=== PATIENT | female | born 1960 | race Caucasian/White ===

== ENCOUNTER → 2017-03-03 | Outpatient (REF) | payer BC ==
[2017-03-03 19:27] LABS: ANION GAP 9 MEQ/L (8-16); BLOOD UREA NITROGEN 23 MG/DL (7-18); CALCIUM LEVEL 8.5 MG/DL (8.5-10.1); CARBON DIOXIDE LEVEL 26 MEQ/L (21-32); CHLORIDE LEVEL 108 MEQ/L (98-107); CHOLESTEROL LEVEL 147 MG/DL (<200); GLOMERULAR FILTRATION RATE > 60.0 (>51); GLUCOSE, FASTING 95 MG/DL (70-105); POTASSIUM SERUM 4.7 MEQ/L (3.5-5.1); SODIUM LEVEL 143 MEQ/L (136-145); TRIGLYCERIDES LEVEL 106 MG/DL (<150)
== END ==
LOC: M LAB REF 10:06
PROVIDERS: ATTEND Internal Medicine Cardiovascular Disease
DX: E78.4 Other hyperlipidemia (principal)

== ENCOUNTER → 2017-04-11 | Outpatient (CLI) | payer BC ==
[2017-04-12 10:16] LABS: BLOOD UREA NITROGEN 16 MG/DL (7-18); CREATININE FOR GFR 0.88 MG/DL (0.55-1.02); GLOMERULAR FILTRATION RATE > 60.0 (>51); GLUCOSE, FASTING 75 MG/DL (70-105); POTASSIUM SERUM 4.8 MEQ/L (3.5-5.1); SODIUM LEVEL 140 MEQ/L (136-145)
[2017-04-12 10:17] LABS: ANION GAP 4 MEQ/L (8-16); CALCIUM LEVEL 8.8 MG/DL (8.5-10.1); CARBON DIOXIDE LEVEL 29 MEQ/L (21-32); CHLORIDE LEVEL 107 MEQ/L (98-107)
== END ==
LOC: M WUC 15:55
PROVIDERS: ATTEND Internal Medicine Cardiovascular Disease
DX: I11.0 Hypertensive heart disease with heart failure (principal); I42.9 Cardiomyopathy, unspecified; I50.9 Heart failure, unspecified

== ENCOUNTER → 2017-04-24 | Outpatient (CLI) | payer BC ==
--- NOTE | 2017-04-24 17:01 | REPMRS ---
Patient History The patient states she had a clinical breast exam in March 2017.Patient is postmenopausal. Family history of unknown cancer in brother and unknown cancer in paternal uncle. Took hormonal contraceptives for 1 year 6 months. Digital Mammo Screening Bilat: April 24, 2017 - Exam #: [id number] Bilateral CC and MLO view(s) were taken. Technologist: Mary Raya, Technologist Prior study comparison: February 06, 2013, bilateral bilat screen digital mammo, performed at [facility] ([facility]). January 13, 2012, bilateral bilat screen digital mammo, performed at [facility] ([facility]). FINDINGS: There are scattered fibroglandular densities. There has been no change in the appearance of the mammogram from the prior studies. There is a mild amount of residual fibroglandular tissue which is fairly symmetric. There is no interval development of dominant mass, architectural distortion, or clustered microcalcification suggestive of malignancy. ASSESSMENT: BI-RADS/ACR category 1 mammogram. Negative. Recommendation Routine screening mammogram in 1 year (for women over age 40). This mammogram was interpreted with the aid of an FDA-approved computer-aided dectection system. Electronically Signed By: Valerio Saunders MD 04/24/17 [id number]
== END ==
LOC: M RAD 16:29
PROVIDERS: ATTEND Family Medicine
DX: Z12.31 Encounter for screening mammogram for malignant neoplasm of breast (principal); Z78.0 Asymptomatic menopausal state; Z92.0 Personal history of contraception

== ENCOUNTER → 2017-06-22 | Outpatient (CLI) | payer BC ==
--- NOTE | 2017-06-23 08:57 | REP ---
PA and lateral chest: A comparison is 02/28/2017. There is chronic cardiomegaly. The lung dodge are clear. The leandro, mediastinum, and bony thorax are unremarkable. Impression: Chronic cardiomegaly. No acute cardiopulmonary findings. Signed by Valerio Rangel MD 06/23/2017 08:49 A
== END ==
LOC: M LRY 16:50
PROVIDERS: ATTEND Family Medicine
DX: R05 Cough (principal); I51.7 Cardiomegaly

== ENCOUNTER → 2017-12-19 | Outpatient (REF) | payer BC ==
[2017-12-19 15:07] LABS: VITAMIN B12 LEVEL 413 PG/ML
[2017-12-19 15:08] LABS: FOLATE 15.1 NG/ML
== END ==
LOC: M LAB REF 12:36
DX: G61.82 Multifocal motor neuropathy (principal); Z98.84 Bariatric surgery status
CPT/HCPCS: 82746

== ENCOUNTER → 2018-04-28 | Outpatient (CLI) | payer BC ==
[2018-04-28 19:19] LABS: BASO # 0.1 10^3/uL (0.0-0.2); BASO % 1.8 % (0.0-1.0); EOS # 0.5 10^3/uL (0.0-0.50); HEMATOCRIT 44.3 % (36.0-47.0); HEMOGLOBIN 13.7 g/dl (12.0-15.5); IMMATURE GRANULOCYTE % 0.4 % (0-3.0); LYMPH # 1.6 10^3/uL (1.5-4.5); LYMPH % 23.1 % (24.0-44.0); MEAN CORPUSCULAR HEMOGLOBIN 24.4 pg (27.0-33.0); MEAN CORPUSCULAR HGB CONC 30.9 g/dl (32.0-36.5); MONO # 0.6 10^3/uL (0.0-0.8); MONO % 8.3 % (0.0-5.0); NEUTROPHILS # 4.1 10^3/uL (1.8-7.7); NEUTROPHILS % 59.4 % (36.0-66.0); PLATELET COUNT, AUTOMATED 526 10^3/uL (150-450); RED BLOOD COUNT 5.61 10^6/uL (4.00-5.40); RED CELL DISTRIBUTION WIDTH 16.3 % (11.5-14.5); WHITE BLOOD COUNT 6.8 10^3/uL (4.0-10.0)
[2018-04-28 19:24] LABS: ANION GAP 8 MEQ/L (8-16); BLOOD UREA NITROGEN 20 MG/DL (7-18); CALCIUM LEVEL 8.5 MG/DL (8.5-10.1); CARBON DIOXIDE LEVEL 28 MEQ/L (21-32); CHLORIDE LEVEL 108 MEQ/L (98-107); CREATININE FOR GFR 0.86 MG/DL (0.55-1.30); GLOMERULAR FILTRATION RATE > 60.0 (>51); GLUCOSE, FASTING 77 MG/DL (70-100); POTASSIUM SERUM 4.8 MEQ/L (3.5-5.1); SODIUM LEVEL 144 MEQ/L (136-145)
== END ==
LOC: M WUC 08:56
DX: I42.9 Cardiomyopathy, unspecified (principal)

== ENCOUNTER 2018-05-26 05:31 | Emergency (ER) | payer BC ==
[2018-05-26 07:30] LABS: KETONE, URINE AUTO RFX NEGATIVE (NEGATIVE); MUCUS, URINE RFX SMALL (NEGATIVE); NITRITE, URINE AUTO RFX NEGATIVE (NEGATIVE); RBC, URINE AUTO RFX 94 /HPF (0-3); SQUAM EPITHELIAL CELL UR AURFX 0 /HPF (0-6)
[2018-05-26 07:32] LABS: LEUKOCYTE ESTERASE UR AUTO RFX 3+ (NEGATIVE); WBC, URINE AUTO RFX TNTC /HPF (0-3)
== END 2018-05-26 08:40 | disposition home or self-care (01) ==
LOC: M ED 05:31
DX: N30.00 Acute cystitis without hematuria (principal); L03.313 Cellulitis of chest wall; Z95.0 Presence of cardiac pacemaker; I10 Essential (primary) hypertension; K21.9 Gastro-esophageal reflux disease without esophagitis; F41.9 Anxiety disorder, unspecified; F32.9 Major depressive disorder, single episode, unspecified; M54.9 Dorsalgia, unspecified; Z98.84 Bariatric surgery status; Z88.8 Allergy status to other drugs, medicaments and biological substances; Z91.048 Other nonmedicinal substance allergy status; Z79.899 Other long term (current) drug therapy
CPT/HCPCS: 81001

== ENCOUNTER 2018-06-06 09:20 | Emergency (ER) | payer BC ==
[2018-06-06 09:58] LABS: AMORPHOUS SEDIMENT RFX SMALL (NEGATIVE); KETONE, URINE AUTO RFX NEGATIVE (NEGATIVE); MUCUS, URINE RFX SMALL (NEGATIVE); NITRITE, URINE AUTO RFX NEGATIVE (NEGATIVE); RBC, URINE AUTO RFX 113 /HPF (0-3); RENAL EPITHELIAL CELLS RFX 1 /HPF; SPECIFIC GRAVITY UR AUTO RFX 1.014 (1.002-1.035); SQUAM EPITHELIAL CELL UR AURFX 4 /HPF (0-6); TRANSITIONAL EPITHELIAL AU RFX 2 /HPF
[2018-06-06 10:01] LABS: LEUKOCYTE ESTERASE UR AUTO RFX 3+ (NEGATIVE); WBC, URINE AUTO RFX TNTC /HPF (0-3)
[2018-06-06] MEDS ORDERED: LIDOCAINE 1% MDV 20ML VIAL As Ordered (10:29)
[2018-06-06] MEDS: LIDOCAINE 1% SDV INJ 30 ML VIAL IM (10:38)
[2018-06-06] MEDS: cefTRIAXone SOD 1 GM VIAL (J0696) IM (10:38)
[2018-06-06 10:55] LABS: ANION GAP 7 MEQ/L (8-16); BLOOD UREA NITROGEN 17 MG/DL (7-18); CALCIUM LEVEL 8.7 MG/DL (8.5-10.1); CARBON DIOXIDE LEVEL 28 MEQ/L (21-32); CHLORIDE LEVEL 106 MEQ/L (98-107); CREATININE FOR GFR 0.82 MG/DL (0.55-1.30); GLOMERULAR FILTRATION RATE > 60.0 (>51); GLUCOSE, FASTING 88 MG/DL (70-100); SODIUM LEVEL 141 MEQ/L (136-145)
[2018-06-06 10:58] LABS: POTASSIUM SERUM 5.3 MEQ/L (3.5-5.1)
== END 2018-06-06 11:13 | disposition home or self-care (01) ==
LOC: M ED 09:20
DX: N39.0 Urinary tract infection, site not specified (principal); I10 Essential (primary) hypertension; F41.9 Anxiety disorder, unspecified; F33.9 Major depressive disorder, recurrent, unspecified; Z98.84 Bariatric surgery status; Z79.899 Other long term (current) drug therapy; Z88.8 Allergy status to other drugs, medicaments and biological substances; Z91.048 Other nonmedicinal substance allergy status
CPT/HCPCS: J0696

== ENCOUNTER 2018-09-13 12:54 | Day surgery (SDC) | payer BC ==
[~2018-09-13 12:54] MED LIST: NS 1,000 ML IV
[2018-09-13] MEDS ORDERED: METOPROLOL 5 MG/5 ML VIAL As Ordered (15:02)
[2018-09-13] MEDS ORDERED: PROPOFOL 200 MG/20 ML VIAL As Ordered ×2 (15:07→15:11)
[2018-09-13] MEDS ORDERED: fentaNYL 100 MCG/2 ML INJECTION (J3010) As Ordered (15:07)
[2018-09-13] MEDS ORDERED: LIDOCAINE 2% INJ 100 MG/5 ML SDV (FOR ANES.) As Ordered ×2 (15:07)
== END 2018-09-13 15:55 | disposition home or self-care (01) ==
LOC: M OPP 15:55
DX: K21.9 Gastro-esophageal reflux disease without esophagitis (principal); Z98.0 Intestinal bypass and anastomosis status; K30 Functional dyspepsia; I42.9 Cardiomyopathy, unspecified; I50.42 Chronic combined systolic (congestive) and diastolic (congestive) heart failure; I44.7 Left bundle-branch block, unspecified; D50.9 Iron deficiency anemia, unspecified; F41.9 Anxiety disorder, unspecified; F32.9 Major depressive disorder, single episode, unspecified; E78.5 Hyperlipidemia, unspecified; G47.00 Insomnia, unspecified; Z79.82 Long term (current) use of aspirin; Z79.890 Hormone replacement therapy; Z98.84 Bariatric surgery status; Z95.810 Presence of automatic (implantable) cardiac defibrillator
CPT/HCPCS: 43239

== ENCOUNTER → 2019-02-10 | Outpatient (REF) | payer BC, MEDICAID ==
[~2019-02-10] MED LIST changes: +AMIT150T PO; +ASPI81TA26 PO; +ATOR1TAB21 PO; +BACT800T5 PO; +BUPR150T3 PO; +CARV12.5 PO; +CEFD300CAP PO; +CLON0.5T8 PO; +FURO40TA2 PO; +GABA-1171 PO; +LOSA50TA88 PO; +MULT1TAB10 PO; -NS 1,000 ML IV; +PANT40TA3 PO; +SERT-138 PO; +TRAZ-160; +VITA100067 PO; +VITA500T PO; +VITA500T17 PO; +VITATAB11 PO; +unknown antibiotic PO
[2019-02-10 17:55] LABS: INFLUENZA A AMPLIFICATION NEGATIVE (NEGATIVE); INFLUENZA B AMPLIFICATION NEGATIVE (NEGATIVE)
== END ==
LOC: M LAB REF 15:52
PROVIDERS: ATTEND Physician Assistant Medical
DX: B34.9 Viral infection, unspecified (principal)

== ENCOUNTER → 2019-04-09 | Outpatient (REF) | payer MEDICAID | LOC: M LAB REF 14:28 | PROVIDERS: ATTEND Orthopaedic Surgery | DX: S61.04 Puncture wound with foreign body of thumb without damage to nail (principal) ==

== ENCOUNTER 2019-07-13 18:27 | Emergency (ER) | payer MEDICAID ==
[~2019-07-13] VITALS: Ht 162.6 cm; Wt 90.0 kg
[~2019-07-13 18:27] MED LIST changes: -TRAZ-160; +TRAZ-252
[2019-07-13 20:17] VITALS: BP 123/65
[2019-07-13] MEDS ORDERED: KEFL500C17 PO (20:33)
[2019-07-13] MEDS ORDERED: CEPHALEXIN 500 MG CAP PO ONE (20:45)
== END 2019-07-13 20:42 | disposition home or self-care (01) ==
LOC: M ED 18:27
DX: L08.9 Local infection of the skin and subcutaneous tissue, unspecified (principal); I10 Essential (primary) hypertension; K21.9 Gastro-esophageal reflux disease without esophagitis; F33.9 Major depressive disorder, recurrent, unspecified; F41.9 Anxiety disorder, unspecified; Z79.899 Other long term (current) drug therapy; Z79.82 Long term (current) use of aspirin; Z88.8 Allergy status to other drugs, medicaments and biological substances; Z91.048 Other nonmedicinal substance allergy status

== ENCOUNTER 2019-10-06 09:30 | Emergency (ER) | payer OTHER ==
[~2019-10-06] VITALS: Ht 162.6 cm; Wt 81.8 kg
[~2019-10-06 09:30] MED LIST changes: +KEFL500C17 PO
[2019-10-06] MEDS ORDERED: ENTR1TAB7 PO (10:20)
[2019-10-06] MEDS ORDERED: DEXI60CA2 PO (10:20)
[2019-10-06] MEDS ORDERED: IBUPROFEN 600 MG TAB PO ONE (10:45)
--- NOTE | 2019-10-06 11:06 | REP ---
REASON: Abnormal breath sounds on auscultation. COMPARISON: 06/22/2017 There is global cardiomegaly status quo. There is a dual-chamber bipolar pacemaker device with AICD representing a change from the prior exam. The lung dodge are clear. The osseous structures are stable and intact. IMPRESSION: No acute cardiopulmonary disease. Findings as described above. Electronically Signed by Marvin Linares DO 10/06/2019 11:43 A
[2019-10-06 11:19] LABS: BASO # 0.1 10^3/uL (0.0-0.2); BASO % 1.1 % (0.0-1.0); EOS # 0.5 10^3/uL (0.0-0.5); EOS % 5.3 % (0.0-3.0); HEMATOCRIT 42.5 % (36.0-47.0); HEMOGLOBIN 12.3 g/dl (12.0-15.5); LYMPH # 1.7 10^3/uL (1.5-5.0); LYMPH % 20.2 % (24.0-44.0); MEAN CORPUSCULAR HEMOGLOBIN 22.4 pg (27.0-33.0); MEAN CORPUSCULAR HGB CONC 28.9 g/dl (32.0-36.5); MEAN CORPUSCULAR VOLUME 77.3 fl (80.0-96.0); MONO # 0.8 10^3/uL (0.0-0.8); NEUTROPHILS # 5.5 10^3/uL (1.5-8.5); NEUTROPHILS % 64.2 % (36.0-66.0); PLATELET COUNT, AUTOMATED 469 10^3/uL (150-450); WHITE BLOOD COUNT 8.5 10^3/uL (4.0-10.0)
[2019-10-06 11:44] LABS: BLOOD UREA NITROGEN 17 MG/DL (7-18); CALCIUM LEVEL 8.2 MG/DL (8.5-10.1); CARBON DIOXIDE LEVEL 29 MEQ/L (21-32); CHLORIDE LEVEL 109 MEQ/L (98-107); CK-MB VALUE MASS 1.1 NG/ML (<3.6); CPK CREATINE PHOSPHOKINASE 49 U/L (26-192); CREATININE FOR GFR 0.93 MG/DL (0.55-1.30); GLOMERULAR FILTRATION RATE > 60.0 (>51); GLUCOSE, FASTING 78 MG/DL (70-100); MB/CK RELATIVE INDEX 2.24 (< OR =4); POTASSIUM SERUM 4.5 MEQ/L (3.5-5.1); SODIUM LEVEL 142 MEQ/L (136-145); TROPONIN I < 0.02 NG/ML (< 0.10)
[2019-10-06 12:28] VITALS: BP 120/56
--- NOTE | 2019-10-06 19:17 | ECGEPIP ---
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
== END 2019-10-06 12:30 | disposition home or self-care (01) ==
LOC: M ED 09:30
DX: J06.9 Acute upper respiratory infection, unspecified (principal); I10 Essential (primary) hypertension; K21.9 Gastro-esophageal reflux disease without esophagitis; I44.7 Left bundle-branch block, unspecified; Z95.0 Presence of cardiac pacemaker; Z98.84 Bariatric surgery status; Z79.899 Other long term (current) drug therapy; Z79.82 Long term (current) use of aspirin; Z88.8 Allergy status to other drugs, medicaments and biological substances; Z91.048 Other nonmedicinal substance allergy status

== ENCOUNTER 2020-09-14 11:55 | Emergency (ER) | payer OTHER ==
[~2020-09-14] VITALS: Ht 160 cm; Wt 88.5 kg
[~2020-09-14 11:55] MED LIST changes: +CLON0.5T2 PO; -CLON0.5T8 PO; +DEXI60CA2 PO; +ENTR1TAB7 PO; +PANT40TA29 PO; -PANT40TA3 PO; +VITA-243 PO; -VITA500T PO
[2020-09-14] MEDS ORDERED: NS 1,000 ML IV ONE (12:45)
[2020-09-14] MEDS ORDERED: NORCO, ANEXSIA 5/325MG TABLET (HYDROcodone/ACETAMINOPHEN) PO ONE (12:45)
--- NOTE | 2020-09-14 13:04 | REP ---
INDICATION: lbp radiating to left leg/left leg weakness. COMPARISON: Comparison is made with imaging from CT study of the abdomen and pelvis dated June 21, 2015.. TECHNIQUE: Helical scanning is acquired and 4 mm axial images are generated. Coronal and sagittal MPR images are generated. The study is viewed at bone and soft tissue window settings. FINDINGS: There is an osteoporotic wedge compression deformity at the T12 vertebral body with approximately 40% loss of anterior vertebral body height. This is new when compared with the 2014 prior sagittal MPR images from CT study. There is no observable retropulsion. This does not appear to be in acute deformity. In addition, there is a more recent appearing partial couple collapse of the superior endplate of L3 with reactive healing sclerosis along the superior endplate. No loss of anterior or posterior vertebral body height is seen. No retropulsion is visible. Lumbar vertebral body heights are otherwise preserved. Alignment is normal. There is no evidence of spondylolysis or spondylolisthesis. Degenerative disc disease is present diffusely most pronounced at the L1-L2 and L2-L3. Axial and sagittal images at L1-L2 show no evidence of disc protrusion, central canal stenosis, or bony foraminal encroachment. At L2-L3, there is mild diffuse disc bulging. Canal size is borderline. There is mild diffuse disc bulging of the foraminal segments as well. No bony neural foraminal narrowing is seen. At L3-L4, there is disc space narrowing and diffuse disc bulging. Mild central canal stenosis is present due to disc bulging and developmentally short pedicles. There is a minimal ligamentum flavum and facet hypertrophy. At L4-5, there is mild central canal stenosis due to diffuse disc bulging in combination with developmentally short pedicles and mild ligamentum flavum hypertrophy. No bony neural foraminal encroachment. At L5-S1, there is a very small cyst left central focal disc protrusion. No thecal sac compression is visible. There is mild osteoarthritic facet hypertrophy bilaterally. No bony neural foraminal encroachment. IMPRESSION: There is recent osteoporotic partial collapse of the superior endplate of L3 with healing sclerosis. An old appearing osteoporotic wedge compression deformity is seen at T12. There are degenerative disc and facet changes. Central canal narrowing is noted at L3-4 and L4-5 and to a lesser extent, at L2-3. <Electronically signed by Eduin Gilbert > 09/14/20 1300
[2020-09-14 13:19] LABS: BASO # 0.1 10^3/uL (0.0-0.2); BASO % 1.2 % (0.0-1.0); EOS # 0.4 10^3/uL (0.0-0.5); EOS % 5.1 % (0.0-3.0); HEMOGLOBIN 11.4 g/dl (12.0-15.5); LYMPH # 1.5 10^3/uL (1.5-5.0); LYMPH % 21.2 % (24.0-44.0); MEAN CORPUSCULAR HEMOGLOBIN 22.1 pg (27.0-33.0); MEAN CORPUSCULAR HGB CONC 29.2 g/dl (32.0-36.5); MEAN CORPUSCULAR VOLUME 75.4 fl (80.0-96.0); MONO # 0.6 10^3/uL (0.0-0.8); MONO % 8.2 % (0.0-5.0); NEUTROPHILS # 4.6 10^3/uL (1.5-8.5); PLATELET COUNT, AUTOMATED 451 10^3/uL (150-450); RED BLOOD COUNT 5.17 10^6/uL (4.00-5.40); WHITE BLOOD COUNT 7.2 10^3/uL (4.0-10.0)
[2020-09-14 13:30] LABS: INR 1.05; PROTHROMBIN TIME 13.9 SECONDS (12.5-14.3)
[2020-09-14 13:31] LABS: PARTIAL THROMBOPLASTIN TIME 30.8 SECONDS (24.2-38.5)
[2020-09-14 13:54] LABS: ALBUMIN 3.5 GM/DL (3.2-5.2); BILIRUBIN,DIRECT 0.1 MG/DL (0.0-0.2); BILIRUBIN,TOTAL 0.4 MG/DL (0.2-1.0); TOTAL PROTEIN 6.4 GM/DL (6.4-8.2)
[2020-09-14 16:00] VITALS: BP 131/63
[2020-09-14] MEDS ORDERED: NORC1TAB7 PO (16:24)
--- NOTE | 2020-09-15 06:44 | ED PDOC ---
Post-Departure Follow-Up dr winters faxed formal report of ct lspsine for fu Alessio Deluna MD Sep 15, 2020 06:44
== END 2020-09-14 16:46 | disposition home or self-care (01) ==
LOC: M ED 11:55
DX: M48.061 Spinal stenosis, lumbar region without neurogenic claudication (principal); S22.000A Wedge compression fracture of unspecified thoracic vertebra, initial encounter for closed fracture; X58.XXXA Exposure to other specified factors, initial encounter; Y92.89 Other specified places as the place of occurrence of the external cause; I10 Essential (primary) hypertension; E78.5 Hyperlipidemia, unspecified; F33.9 Major depressive disorder, recurrent, unspecified; F41.9 Anxiety disorder, unspecified; K21.9 Gastro-esophageal reflux disease without esophagitis; Z98.84 Bariatric surgery status; Z88.8 Allergy status to other drugs, medicaments and biological substances; Z79.82 Long term (current) use of aspirin

== ENCOUNTER → 2021-06-02 | Outpatient (CLI) | payer MEDICARE, OTHER ==
[~2021-06-02] MED LIST changes: +BUPR150T12 PO; -BUPR150T3 PO; +LOSA50TA28 PO; -LOSA50TA88 PO; +NORC1TAB7 PO
== END ==
LOC: M WHC 14:31
PROVIDERS: ATTEND Registered Nurse
DX: Z12.31 Encounter for screening mammogram for malignant neoplasm of breast (principal); Z78.0 Asymptomatic menopausal state; M85.851 Other specified disorders of bone density and structure, right thigh; M85.852 Other specified disorders of bone density and structure, left thigh

== ENCOUNTER → 2021-08-27 | Outpatient (REF) | payer MEDICARE, OTHER ==
[~2021-08-27] MED LIST changes: -LOSA50TA28 PO; +LOSA50TA88 PO
[2021-08-27 17:10] LABS: FOLATE 11.1 NG/ML
== END ==
LOC: M LAB REF 16:06
PROVIDERS: ATTEND Registered Nurse
DX: Z98.84 Bariatric surgery status (principal)

== ENCOUNTER 2021-09-09 10:13 | Emergency (ER) | payer MEDICARE, OTHER ==
[~2021-09-09] VITALS: Ht 162.6 cm; Wt 81.5 kg
--- OUTSIDE RECORDS SUMMARY | 2021-09-09 10:23 | CCD | Continuity of Care Document ---
Author Organization Unknown Address Unknown Phone Unavailable Care Team Providers Care Welt Rander Name Role Phone Radha Briseno ANNMARIE AUTM [phone] Problems Active Problems Provider Date Vitamin D deficiency Aníbal Adair MD Onset: 02/01/2019 Essential hypertension ANNMARIE Hunt Onset: 11/23/2020 Pure hypercholesterolemia ANNMARIE Hunt Onset: 021 Anxiety state ANNMARIE Hunt Onset: 11/23/2020 Recurrent major depressive episodes ANNMARIE Hunt Onse t: 11/23/2020 Gastroesophageal reflux disease ANNMARIE Hunt Onset: 0 11/23/2020 Obstructive sleep apnea syndrome ANNMARIE Hunt Onset: 11/23/2020 Combined systolic and diastolic dysfunction Giovana Hutn REGISTERED TRAVEL NURSE Onset: 11/23/2020 Automatic implantable cardiac defibrillator in situ ANNMARIE Hunt Onset: 11/23/2020 Closed fracture of lumbar vertebra without spinal cord injury ANNMARIE Hunt Onset: 11/23/2020 Osteoporosis ANNMARIE Hunt Onset: 11/23/2020 Social History Type Date Description Comments Sex Unknown ETOH Use Occasionally consumes alcohol ab out 1 glass of wine a month Tobacco Use Start: Unknown Patient has never smoked Allergies, Adverse Reactions, Alerts Active Allergies Reaction Severity Comments Date Lovenox BLEEDING 12/19/2017 Medications Active Medications SIG Qnty Indications Ordering Provide r Date Amitriptyline HCL 150mg Tablets Take One Tablet By Mouth AT Bedtime 90tabs Emilia Mcgee 02/10/2021 Bupropion Hydrochloride ER (XL) 300mg Tablets ER 24HR Take One Tablet By Mouth Every Day 90tabs Janna Harvey M.D. 12/08/2020 Buspirone HCL 10mg Tablets Take 1/2 To 1 Tablet By Mouth Three Times A Day as Needed For Anxiety 90tabs F41. 9 Aníbal Adair MD 10/23/2020 Sertraline HCL 100mg Tablets Take One Tablet By Mouth Every Day 30tabs Sinan Mcgee 04/27/2020 Vitamin D 2000Unit Tablets 1 by mouth every day Pauly Little FNP 02/01/2019 Aspir-Low 81mg Tablets DR 1 by mouth every day Pauly Little FNP 01/18/2019 Multi-Vitamin Tablets 1 by mouth every day Pauly Little FNP 01/18/2019 B-12 1000mcg Capsules 1 qd Not Sure Of Dose Pauly Little FNP 01/18/2019 Shingrix 50mcg/0.5ML Suspension Re c administer at pharmacy 1units Pauly Little FNP 01/18 Clonazepam 0.5mg Tablets take one tablet by mouth at bedtime maximum daily dose = one tablet 30tabs Janna Harvey M.D. Dexilant 60mg Capsules DR 1 by mouth every day 30caps K21.9 Pauly Little FNP Entresto 49-51mg Tablets 1 qd PO Unknown Atorvastatin Calcium 20mg Tablets 1 by mouth every day Unknown Carvedilol 25mg Tablets take 2 tablet by mouth twice a day Unknown Medications Administered in Office Medication SIG Qnty Indications Ordering Provider Date Covid-19 vaccine, Unspecified Inj ection Unknown 02/05/2021 Covid-19 vaccine, Unspecified Inj ection Unknown 01/08/2021 Immunizations CPT Code Status Date Vaccine Lot # U-Flu Given 08/13/2020 Influenza,Unspecified U-Flu Given 11/09/2019 Influenza,Unspecified U-Flu Given 12/19/2017 Influenza,Unspecified U-Flu Given Unknown Influenza,Unspecified Vital Signs Date Vital Result Comment 05/19/2021 8:44am BP Systolic 148 mmHg BP Diastolic 92 mmHg Heart Rate 84 /min Height 62.75 inches 5'2.75" Weight 188.00 lb O2 % BldC Oximetry 96 % BMI (Body Mass Index) 33.6 kg/m2 02/01/2021 3:20pm BP Systolic 128 mmHg RT Arm BP Diastolic 82 mmHg RT Arm Heart Rate 76 /min Height 62.75 inches 5'2.75" Weight 187.00 lb BMI (Body Mass Index) 33.4 kg/m2 Results Description No Information Available Procedures Date Code Description Status 06/02/2021 830156573 Bone Mineral Density Test Comple hemant 06/02/2021 [id number] Mammogram Completed 05/19/2021 93785 Office/Outpatient Established Mo d MDM 30-39 Min Completed 02/01/2021 46154 Office/Outpatient Established Lo w MDM 20-29 Min Completed Medical Devices Description No Information Available Encounters Type Date Location Provider Dx Diagnosis Office Visit 05/19/2021 8:40a [facility] Christian ELAINA Michelle JR F34.1 Dysthymic disorder F41.9 Anxiety disorder, unspecifie d I10 Essential (primary) hyperten piter S32.030D Wedge comprsn fx third lum v ert, subs for fx w routn heal G47.00 Insomnia, unspecified Office Visit 02/01/2021 3:20p [facility] Radha hallman, COTTON DISPATCHER M80.08xD Age-rel osteopor w crnt path fx, verteb, 7thD S32.030D Wedge comprsn fx third lum v ert, subs for fx w routn heal Assessments Date Code Description Provider 05/19/2021 F34.1 Dysthymic disorder ELAINA Baum JR 05/19/2021 F41.9 Anxiety disorder, unspecified Ro ELAINA Waters JR 05/19/2021 I10 Essential (primary) hypertension ELAINA Camarena JR 05/19/2021 S32.030D Wedge compression fr acture of third lumbar vertebra, subsequent encounter for fracture with routine healing ELAINA Camarena JR 05/19/2021 G47.00 Insomnia, unspecified ELAINA Haas JR 02/01/2021 M80.08xD Age-related osteopor osis with current pathological fracture, vertebra(e), subsequent encounter for fracture with routine healing ANNMARIE Hunt 02/01/2021 S32.030D Wedge compression fr acture of third lumbar vertebra, subsequent encounter for fracture with routine healing ANNMARIE Hunt Plan of Treatment Future Appointment(s):* 08/27/2021 10:40 am - ANNMARIE Hunt at [facility] 05/19/2021 - Nima Dennis JR, PA* F34.1 Dysthymic disorder* Comments:* Well controlled on her current regimen, she does not want any increases or changes, she is not doing any counseling at this time, she is extra stressed due to t iming at this time. * F41.9 Anxiety disorder, unspecified* Comments:* Moderate control at this time, no SI or HI * I10 Essential (primary) hypertension* Comments:* She is currently not at [facility] goals, likely 2/2 to stress, diet and exercise were discussed including Mediterranean diet and 30 minutes of aerobic exercise daily, continue current medication regimen at this time. * S32.030D Wedge compression fracture of third lumbar vertebra, subsequent encounter for fracture with routine healing* Comments:* Still has not heard from [facility], advised to call, will check on referral status * G47.00 Insomnia, unspecified* Comments:* Klonopin helps sometimes, risks reviewed of controlled substance medication, needs to keep most appts without causation for cancellation Functional Status Description No Information Available Mental Status Description No Information Available Referrals Description No Information Available
--- OUTSIDE RECORDS SUMMARY | 2021-09-09 10:23 | CCD | Continuity of Care Document ---
Author Author Janey BRISENO Organization Unknown Address [address] [place] [address] Phone [phone] Care Team Providers Care Apprentice/Lineman Name Role Phone Radha Briseno AUTM [phone] Problems Active Problems Provider Date Vitamin D deficiency Aníbal Adair MD Onset: 02/01/2019 Essential hypertension ANNMARIE Hunt Onset: 11/23/2020 Pure hypercholesterolemia ANNMARIE Hunt Onset: 021 Anxiety state ANNMARIE Hunt Onset: 11/23/2020 Recurrent major depressive episodes ANNMARIE Hunt Onse t: 11/23/2020 Gastroesophageal reflux disease ANNMARIE Hunt Onset: 0 11/23/2020 Obstructive sleep apnea syndrome ANNMARIE Hunt Onset: 11/23/2020 Combined systolic and diastolic dysfunction Giovana Hunt BACKGROUND CHECK COORDINATOR Onset: 11/23/2020 Automatic implantable cardiac defibrillator in situ ANNMARIE Hunt Onset: 11/23/2020 Closed fracture of lumbar vertebra without spinal cord injury ANNMARIE Hunt Onset: 11/23/2020 Osteoporosis ANNMARIE Hunt Onset: 11/23/2020 Social History Type Date Description Comments Sex Unknown ETOH Use Occasionally consumes alcohol ab out 1 glass of wine a month Tobacco Use Start: Unknown Patient has never smoked Allergies and adverse reactions Active Allergies Criticality Reaction | Severity Comments Date Lovenox Unable to assess criticality BLEEDING 12/19/2017 Medications Active Medications SIG Qnty Indications Ordering Provide r Date Amitriptyline HCL 150mg Tablets take one tablet by mouth at bedtime 90tabs Aníbal Adair MD 02/10/2021 Bupropion Hydrochloride ER (XL) 300mg Tablets [...] maximum daily dose = one tablet 30tabs Aníbal Adair MD Dexilant 60mg Capsules DR 1 by mouth [...] Influenza,Unspecified Vital Signs Date Vital Result Comment 08/27/2021 10:41am BP Systolic 130 mmHg BP Diastolic 82 mmHg Heart Rate 70 /min Height 62.75 inches 5'2.75" Weight 179.00 lb BMI (Body Mass Index) 32.0 kg/m2 05/19/2021 8:44am BP Systolic 148 mmHg BP Diastolic 92 mmHg Heart Rate 84 /min Height 62.75 inches 5'2.75" Weight 188.00 lb O2 % BldC Oximetry 96 % BMI (Body Mass Index) 33.6 kg/m2 Results Test Acquired Date Facility Test Result H/L Range Note Vitamin B12 & Folate 08/27/2021 [facility] enter [address], [place] [id number] [phone] Vitamin B12 Level 348 pg/mL Normal 1 Folate 11.1 NG/ML Normal 2 Laboratory test finding 08/27/2021 [facility] Cardiothoracic Physiotherapist: Dr [place]íbal [place] [address] [phone] Vitamin D 25-Hydroxy <pending> Complete Blood Count 08/27/2021 [facility] Cardiothoracic Physiotherapist: Dr Aníbal Adair [place], [place] [id number] [phone] WBC 7.4 x10*3/UL 4.1 - 10.9 RBC 5.60 x10*6/UL 4.20 - 6.30 Hemoglobin 13.2 g/dL 12.0 - 18.0 Hematocrit 40.4 % 37.0 - 51.0 MCV 72.1 fL Low 80.0 - 97.0 MCH 23.6 pg Low 26.0 - 32.0 MCHC 32.7 g/dL 31.0 - 38.0 RDW 15.2 % High 11.6 - 13.7 PLT 490 x10*3/UL High 140 - 440 3 MPV 9.0 FL 7.8 - 11.0 Lymph % 23.7 % 10.0 - 58.5 Mid % 6.5 % 1.7 - 9.3 Neut % 69.8 % 37.0 - 92.0 Lymph # 1.7 x10*3/UL 0.6 - 4.1 Mid # 0.5 x10*3/UL 0.1 - 0.6 Neut # 5.2 x10*3/UL 2.0 - 7.8 Comprehensive Chem Profile 08/27/2021 [facility] Cardiothoracic Physiotherapist: [place]íbal [place] [address] [phone] Glucose 72 mg/dL Low 74 - 99 4 BUN 12 mg/dL 7 - 18 Creatinine 1.0 mg/dL 0.6 - 1.3 Sodium 142 mEq/L 136 - 145 Potassium 5.0 mEq/L 3.5 - 5.1 Chloride 107 mEq/L 98 - 107 Carbon Dioxide 29 mEq/L 21 - 32 Calcium 9.2 mg/dL 8.5 - 10.1 Alk. Phosphatase 105 mg/dL 46 - 116 Total Bilirubin 0.3 mg/dL 0.2 - 1.0 Ast (Sgot) 19 U/L 15 - 37 Alt (SGPT) 23 U/L 12 - 78 Albumin 3.6 g/dL 3.4 - 5.0 Total Protein 6.8 g/dL 6.4 - 8.2 A/G Ratio 1.13 CALC 1.00 - 1.90 GFR 56 mL/min Low >60 GFR >= 60 mL/min >60 5 Lipid Profile 08/27/2021 [facility] Cardiothoracic Physiotherapist: Dr [place]íbal [place] [address] [phone] Cholesterol 171 mg/dL 131 - 200 Triglycerides 72 mg/dL 30 - 150 HDL Cholesterol 86 mg/dL High 35 - 60 LDL (Calculated) 71 CALC 50 - 159 Laboratory test finding 08/27/2021 [facility] Cardiothoracic Physiotherapist: [place]íbal [place] [address] [phone] Thyroid Stimulating Hormone 2.40 uIU/mL 0.3 6 - 3.74 1 VITAMIN B12 NORMAL RANGE NORMAL 247 - 911 PG/ML INDETERMINATE 211 - 246 PG/ML DEFICIENT LESS THAN 211 PG/ML 2 FOLATE NORMAL RANGE NORMAL GREATER THAN 5.4 NG/ML INDETERMINATE 3.4-5.4 NG/ML DEFICIENT LESS THAN 3.4 NG/ML 3 NOTE: RESULT VERIFIED. 4 100-125 mg/dL PRE-DIABET ES/FASTING >126 mg/dL DIABETES/FASTING 5 CHRONIC KIDNEY DISEASE STAGI NG PER NKF STAGE I & II GFR >= 60 NORMAL TO MILDLY DECREASED STAGE III GFR 30-59 MODERATELY DECREASED STAGE IV GFR 15-29 SEVERELY DECREASED STAGE V GFR <15 VERY LITTLE GFR LEFT ESRD GFR <15 ON EXECUTIVE ASSISTANT Procedures Date Code Description Status 06/02/2021 [id number] Bone Mineral Density Test Comple hemant 06/02/2021 [id number] Mammogram Completed 05/19/2021 13405 Office/Outpatient Established Mo d MDM 30-39 Min Completed Medical Devices Description No Information Available Encounters Type Date Location Provider Dx Diagnosis Office Visit 05/19/2021 8:40a [facility] Christian ELAINA Michelle JR F34.1 Dysthymic disorder F41.9 Anxiety disorder, unspecifie d I10 Essential (primary) hyperten piter S32.030D Wedge comprsn fx third lum v ert, subs for fx w routn heal G47.00 Insomnia, unspecified Assessments Date Code Description Provider 08/27/2021 F34.1 Dysthymic disorder Radha Briseno , [facility] 08/27/2021 F41.9 Anxiety disorder, unspecified Herman lewissangeeta Finn, [facility] 08/27/2021 G47.00 Insomnia, unspecified Radha Blanchard rra, [facility] 08/27/2021 Z63.4 Disappearance and of famil y member Radha Finn, [facility] 08/27/2021 Z23 Encounter for immunization Hermandebbiecole dhaliwal Finn, [facility] 08/27/2021 Z98.84 Bariatric surgery status Radha Finn, [facility] 05/19/2021 F34.1 Dysthymic disorder ELAINA Baum JR 05/19/2021 F41.9 Anxiety disorder, unspecified Ro ELAINA Waters JR 05/19/2021 I10 Essential (primary) hypertension ELAINA Camarena JR 05/19/2021 S32.030D Wedge compression fr acture of third lumbar vertebra, subsequent encounter for fracture with routine healing ELAINA Camarena JR 05/19/2021 G47.00 Insomnia, unspecified ELAINA Haas JR Plan of Treatment Future Appointment(s):* 02/28/2022 10:40 am - Nurse #2 at [facility] * 02/28/2022 11:00 am - ANNMARIE Hunt at [facility] * 10/27/2021 11:20 am - ANNMARIE Hunt at [facility] * 09/23/2021 11:20 am - ANNMARIE Hunt at [facility] 08/27/2021 - ANNMARIE Hunt* F34.1 Dysthymic disorder * F41.9 Anxiety disorder, unspecified * G47.00 Insomnia, unspecified * Z63.4 Disappearance and of family member * Z23 Encounter for immunization * Z98.84 Bariatric surgery status* Comments:* Check routine labs. * All * Comments:* She is going to follow up in 1 month prior to the holidays and also in October. We have moved her extended to February 2022. Labs are pending today however. Fecal occult blood testing has been ordered Functional Status Description No Information Available Mental Status Description No Information Available Referrals Description No Information Available
--- OUTSIDE RECORDS SUMMARY | 2021-09-09 10:23 | CCD | Continuity of Care Document ---
Author Author Janey BRISENO Organization Unknown Address [address] [place] [address] Phone [phone] Care Team Providers Care Stage Electrician Helper Name Role Phone Radha Briseno AUTM [phone] Problems Active Problems Provider Date Vitamin D deficiency Aníbal Adair MD Onset: 02/01/2019 Essential hypertension ANNMARIE Hunt Onset: 11/23/2020 Pure hypercholesterolemia ANNMARIE Hunt Onset: 021 Anxiety state ANNMARIE Hunt Onset: 11/23/2020 Recurrent major depressive episodes ANNMARIE Hunt Onse t: 11/23/2020 Gastroesophageal reflux disease ANNMARIE Hunt Onset: 0 11/23/2020 Obstructive sleep apnea syndrome ANNMARIE Hunt Onset: 11/23/2020 Combined systolic and diastolic dysfunction Giovana Hunt FLANGE MACHINE OPERATOR Onset: 11/23/2020 Automatic implantable cardiac defibrillator in [...] One Tablet By Mouth AT Bedtime 90tabs Aníbal Adair MD 02/10/2021 Bupropion Hydrochloride ER (XL) 300mg Tablets ER 24HR take one tablet by mouth every day 90tabs Wayne Adair MD 12/08/2020 Buspirone HCL 10mg Tablets Take 1/2 To 1 Tablet By Mouth Three Times A Day as Needed For Anxiety 90tabs F41. 9 Aníbal Adair MD 10/23/2020 Sertraline HCL 100mg Tablets take one tablet by mouth every day 30tabs Aníbal Adair MD 04/27/2020 Vitamin D 2000Unit Tablets 1 by [...] tablet by mouth twice a day Unknown Tramadol HCL 50mg Tablets Unknown Medications Administered in Office Medication SIG Qnty Indications Ordering Provider Date Immunization Adminstration,1 Vaccine/Tox oid Injection ANNMARIE Hunt Covid-19 vaccine, Unspecified Inj ection Unknown 02/05/2021 Covid-19 vaccine, Unspecified Inj ection Unknown 01/08/2021 Immunizations CPT Code Status Date Vaccine Lot # [id number] Given 08/27/2021 Influenza Vaccin e Quadrivalent Preser/Antibiotic Free Im Use [id number] Given 08/27/2021 Influenza Vaccin e Quadrivalent Preser/Antibiotic Free Im Use [id number] U-Flu Given 08/13/2020 Influenza,Unspecified U-Flu Given 11/09/2019 [...] Range Note Vitamin B12 & Folate 08/27/2021 [facility] enter [address] [place] [address] [phone] Vitamin B12 Level 348 pg/mL Normal 1 Folate 11.1 NG/ML Normal 2 Laboratory test finding 08/27/2021 [facility] [employer] [employer] Systems Integrator: Dr Aníbal Adair [place], [place] [id number] [phone] Vitamin D 25-Hydroxy 41.1 ng/ml 24.0 - 80.0 3 Complete Blood Count 08/27/2021 [facility] [employer] carole altman Systems Integrator: Dr Aníbal [place] [address] [phone] WBC 7.4 x10*3/UL 4.1 - 10.9 RBC 5.60 x10*6/UL 4.20 - 6.30 Hemoglobin 13.2 g/dL 12.0 - 18.0 Hematocrit 40.4 % 37.0 - 51.0 MCV 72.1 fL Low 80.0 - 97.0 MCH 23.6 pg Low 26.0 - 32.0 MCHC 32.7 g/dL 31.0 - 38.0 RDW 15.2 % High 11.6 - 13.7 PLT 490 x10*3/UL High 140 - 440 4 MPV 9.0 FL 7.8 - 11.0 Lymph % 23.7 % 10.0 - 58.5 Mid % 6.5 % 1.7 - 9.3 Neut % 69.8 % 37.0 - 92.0 Lymph # 1.7 x10*3/UL 0.6 - 4.1 Mid # 0.5 x10*3/UL 0.1 - 0.6 Neut # 5.2 x10*3/UL 2.0 - 7.8 Comprehensive Chem Profile 08/27/2021 [facility], Systems Integrator: Dr Aníbal Adair [place], [place] [id number] [phone] Glucose 72 mg/dL Low 74 - 99 5 BUN 12 mg/dL 7 - 18 Creatinine [...] Low >60 GFR >= 60 mL/min >60 6 Lipid Profile 08/27/2021 [facility] , Systems Integrator: Dr [place] [address] [phone] Cholesterol 171 mg/dL 131 - 200 Triglycerides 72 mg/dL 30 - 150 HDL Cholesterol 86 mg/dL High 35 - 60 LDL (Calculated) 71 CALC 50 - 159 Laboratory test finding 08/27/2021 [facility] [employer] isattila, Systems Integrator: Dr [place] [address] [phone] Thyroid Stimulating Hormone 2.40 uIU/mL 0.3 6 - 3.74 1 VITAMIN B12 NORMAL RANGE NORMAL 247 - 911 PG/ML INDETERMINATE 211 - 246 PG/ML DEFICIENT LESS THAN 211 PG/ML 2 FOLATE NORMAL RANGE NORMAL GREATER THAN 5.4 NG/ML INDETERMINATE 3.4-5.4 NG/ML DEFICIENT LESS THAN 3.4 NG/ML 3 This test was performed Option[employer]ase[employer] Immunologix Vitamin D immunoassay kit. Values obtained with different assay methods should not be used interchangeably. 4 NOTE: RESULT VERIFIED. 5 100-125 mg/dL PRE-DIABET ES/FASTING >126 mg/dL DIABETES/FASTING 6 CHRONIC KIDNEY DISEASE STAGI NG PER NKF STAGE I & II GFR >= 60 NORMAL TO MILDLY DECREASED STAGE III GFR 30-59 MODERATELY DECREASED STAGE IV GFR 15-29 SEVERELY DECREASED STAGE V GFR <15 VERY LITTLE GFR LEFT ESRD GFR <15 ON SANITATION TRUCK DRIVER Procedures Date Code Description Status 08/27/2021 50720 Office/Outpatient Established Mo d MDM 30-39 Min Completed 06/02/2021 [id number] Bone Mineral Density Test Comple hemant 06/02/2021 07818563 Mammogram Completed 05/19/2021 29146 Office/Outpatient Established Mo d MDM 30-39 Min Completed Medical Devices Description No Information Available Encounters Type Date Location Provider Dx Diagnosis Office Visit 08/27/2021 10:40a [facility] Radha hallman, [facility] F34.1 Dysthymic disorder F41.9 Anxiety disorder, unspecifie d G47.00 Insomnia, unspecified Z63.4 Disappearance and of f quentiny member Z23 Encounter for immunization Z98.84 Bariatric surgery status E55.9 Vitamin D deficiency, unspec ified I10 Essential (primary) hyperten piter E78.00 Pure hypercholesterolemia, u nspecified Office Visit 05/19/2021 8:40a [facility] Christian ert Virginia Dennis JR PA F34.1 Dysthymic disorder F41.9 Anxiety disorder, unspecifie d I10 Essential (primary) hyperten piter S32.030D Wedge comprsn fx third lum v ert, subs for fx w routn heal G47.00 Insomnia, unspecified Assessments Date Code Description Provider 08/27/2021 F34.1 Dysthymic disorder ANNMARIE Hunt 08/27/2021 F41.9 Anxiety disorder, unspecified Herman Briseno [facility] 08/27/2021 G47.00 Insomnia, unspecified Radha lopez, [facility] 08/27/2021 Z63.4 Disappearance and of famil y member Radha Briseno, [facility] 08/27/2021 Z23 Encounter for immunization Maryjane Briseno, [facility] 08/27/2021 Z98.84 Bariatric surgery status Radha Briseno, [facility] 08/27/2021 E55.9 Vitamin D deficiency, unspecifie d Radha Briseno, [facility] 08/27/2021 I10 Essential (primary) hypertension Radha Briseno, [facility] 08/27/2021 E78.00 Pure hypercholesterolemia, unspe cified Radha Briseno, [facility] 05/19/2021 F34.1 Dysthymic disorder ELAINA Baum [...] 02/28/2022 10:40 am - Nurse #2 at [facility] * 02/28/2022 11:00 am - ANNMARIE Hunt at [facility] * 10/27/2021 11:20 am - ANNMARIE Hunt at [facility] * 09/23/2021 11:20 am - ANNMARIE Hunt at [facility] 08/27/2021 - ANNMARIE Hunt* F34.1 Dysthymic disorder * F41.9 Anxiety disorder, unspecified * G47.00 Insomnia, unspecified * Z63.4 Disappearance and of family member * Z23 Encounter for immunization* Comments:* Flu vaccine given * Z98.84 Bariatric surgery status* Comments:* Check routine labs. * E55.9 Vitamin D deficiency, unspecified * I10 Essential (primary) hypertension * E78.00 Pure hypercholesterolemia, unspecified * All * Comments:* She is going to follow up in 1 month prior to the holidays and also in October. We have moved her extended to February 2022. Labs are pending today however. Fecal occult blood testing has been ordered Functional Status Description No Information Available Mental Status Description No Information Available Referrals Refer to Reason for Referral Status Appt Date [facility] FLANGE MACHINE OPERATOR CONSULT FOR ANXIETY A ND DEPRESSION Created [id number] [place], [place] [id number] [phone] [facility] CONSULT FOR PERS ISTENT ANXIETY/DEPRESSION Closed [address] [facility] [address] [place], [place] [id number] [phone]
--- OUTSIDE RECORDS SUMMARY | 2021-09-09 10:23 | CCD | Continuity of Care Document ---
Author Author Janey BRISENO Organization Unknown Address [address] [place] [address] Phone [phone] Care Team Providers Care Chlorine Cell Tender Name Role Phone Radha Briseno AUTM [phone] Problems Active Problems Provider Date Vitamin D deficiency Aníbal Adair MD Onset: 02/01/2019 Essential hypertension ANNMARIE Hunt Onset: 11/23/2020 Pure hypercholesterolemia ANNMARIE Hunt Onset: 021 Anxiety state ANNMARIE Hunt Onset: 11/23/2020 Recurrent major depressive episodes ANNMARIE Hunt Onse t: 11/23/2020 Gastroesophageal reflux disease ANNMARIE Hunt Onset: 0 11/23/2020 Obstructive sleep apnea syndrome ANNMARIE Hunt Onset: 11/23/2020 Combined systolic and diastolic dysfunction Giovana Hunt DENTAL SERVICE CHIEF Onset: 11/23/2020 Automatic implantable cardiac defibrillator in [...] One Tablet By Mouth Every Day 90tabs Jnana Harvey M.D. 12/08/2020 Buspirone HCL 10mg Tablets [...] Vitamin B12 & Folate 08/27/2021 [facility] enter [address] [place], [place] [id number] [phone] Vitamin B12 Level 348 pg/mL Normal 1 Folate 11.1 NG/ML Normal 2 Laboratory test finding 08/27/2021 [facility] [employer], [facility] Chief Operator Synthesis: Dr Aníbal [place] [address] [phone] Vitamin D 25-Hydroxy <pending> Complete Blood Count 08/27/2021 [facility] [employer], [facility] Chief Operator Synthesis: Dr Aníbal Adair [place], [place] [id number] [phone] WBC 7.4 x10*3/UL 4.1 - 10.9 RBC [...] 2.0 - 7.8 Comprehensive Chem Profile 08/27/2021 [facility] Chief Operator Synthesis: Dr Aníbal [place] [address] [phone] Glucose 72 mg/dL Low 74 - 99 [...] 60 mL/min >60 5 Lipid Profile 08/27/2021 [facility] Chief Operator Synthesis: Dr Aníbal [place] [address] [phone] Cholesterol 171 mg/dL 131 - 200 Triglycerides 72 mg/dL 30 - 150 HDL Cholesterol 86 mg/dL High 35 - 60 LDL (Calculated) 71 CALC 50 - 159 Laboratory test finding 08/27/2021 [facility] Chief Operator Synthesis: Dr Aníbal [place] [address] [phone] Thyroid Stimulating Hormone 2.40 uIU/mL 0.3 6 [...] LITTLE GFR LEFT ESRD GFR <15 ON TECHNICAL PRODUCT MANAGER Procedures Date Code Description Status 06/02/2021 675122280 Bone Mineral Density Test Comple hemant 06/02/2021 67720981 Mammogram Completed 05/19/2021 16076 Office/Outpatient Established Mo d MDM 30-39 Min Completed Medical Devices Description No Information Available Encounters Type Date Location Provider Dx Diagnosis Office Visit 05/19/2021 8:40a [facility] Christian ELAINA Michelle JR F34.1 Dysthymic disorder F41.9 Anxiety disorder, unspecifie d I10 Essential (primary) hyperten piter S32.030D Wedge comprsn fx third lum v ert, subs for fx w routn heal G47.00 Insomnia, unspecified Assessments Date Code Description Provider 08/27/2021 F34.1 Dysthymic disorder Radha Briseno , [facility] 08/27/2021 F41.9 Anxiety disorder, unspecified Herman lewissangeeta Finn, [facility] 08/27/2021 G47.00 Insomnia, unspecified Radha Blanchard rra, [facility] 08/27/2021 Z63.4 Disappearance and of famil y member Radha Finn, [facility] 08/27/2021 Z23 Encounter for immunization Hermandebbiecole dhaliwal Finn, [facility] 08/27/2021 Z98.84 Bariatric surgery status Radha Finn, [facility] 05/19/2021 F34.1 Dysthymic disorder ELAINA Baum [...] 02/28/2022 10:40 am - Nurse #2 at [facility] * 02/28/2022 11:00 am - ANNMARIE Hunt at [facility] * 10/27/2021 11:20 am - ANNMARIE Hunt at [facility] * 09/23/2021 11:20 am - ANNMARIE Hunt at [facility] 08/27/2021 - ANNMARIE Hunt* F34.1 Dysthymic disorder * F41.9 Anxiety disorder, unspecified * G47.00 Insomnia, unspecified * Z63.4 Disappearance and of family member * Z23 Encounter for immunization * Z98.84 Bariatric surgery status* Comments:* Check routine labs. Functional Status Description No Information Available Mental Status Description No Information Available Referrals Description No Information Available
--- OUTSIDE RECORDS SUMMARY | 2021-09-09 10:23 | CCD | Continuity of Care Document ---
Author Author Janey Adair MD Organization Unknown Address [address] [place] [address] Phone [phone] Care Team Providers Care Interactive Designer Name Role Phone Finn, Radha ANGUIANO AUTM [phone] Problems Active Problems Provider Date Vitamin D deficiency Aníbal Adair MD Onset: 02/01/2019 Essential hypertension ANNMARIE Hunt Onset: 11/23/2020 Pure hypercholesterolemia ANNMARIE Hunt Onset: 021 Anxiety state ANNMARIE Hunt Onset: 11/23/2020 Recurrent major depressive episodes ANNMARIE Hunt Onse t: 11/23/2020 Gastroesophageal reflux disease ANNMARIE Hunt Onset: 0 11/23/2020 Obstructive sleep apnea syndrome ANNMARIE Hunt Onset: 11/23/2020 Combined systolic and diastolic dysfunction Giovana Hunt BRAND STRATEGY MANAGER Onset: 11/23/2020 Automatic implantable cardiac defibrillator in [...] by mouth every day 30caps K21.9 Pauly LittleTRIMMER OPERATOR THREE KNIFE Entresto 49-51mg Tablets 1 qd PO Unknown [...] Available Procedures Date Code Description Status 06/02/2021 [id number] Bone Mineral Density Test Comple hemant 06/02/2021 97710133 Mammogram Completed 05/19/2021 58907 Office/Outpatient Established Mo d MDM 30-39 Min Completed 02/01/2021 95954 Office/Outpatient Established Lo w MDM 20-29 Min Completed Medical Devices Description No Information Available Encounters Type Date Location Provider Dx Diagnosis Office Visit 05/19/2021 8:40a [facility] Christian ELAINA Michelle JR F34.1 Dysthymic disorder F41.9 Anxiety disorder, unspecifie d I10 Essential (primary) hyperten piter S32.030D Wedge comprsn fx third lum v ert, subs for fx w routn heal G47.00 Insomnia, unspecified Office Visit 02/01/2021 3:20p [facility] Radha hallman, TRIMMER OPERATOR THREE KNIFE M80.08xD Age-rel osteopor w crnt path fx, [...] 08/27/2021 10:40 am - ANNMARIE Hunt at [facility] 05/19/2021 - ELAINA Camarena JR* F34.1 Dysthymic disorder* Comments:* Well controlled on [...] healing* Comments:* Still has not heard from [facility], advised to call, will check on referral status * G47.00 Insomnia, unspecified* Comments:* Klonopin helps sometimes, risks reviewed of controlled substance medication, needs to keep most appts without causation for cancellation Functional Status Description No Information Available Mental Status Description No Information Available Referrals Description No Information Available
--- OUTSIDE RECORDS SUMMARY | 2021-09-09 10:23 | CCD | Continuity of Care Document ---
Author Author Janey BRISENO Organization Unknown Address [address] [place] [address] Phone [phone] Care Team Providers Care Fabricator Foam Rubber Name Role Phone Radha Briseno AUTM [phone] Problems Active Problems Provider Date Vitamin D deficiency Aníbal Adair MD Onset: 02/01/2019 Essential hypertension ANNMARIE Hunt Onset: 11/23/2020 Pure hypercholesterolemia ANNMARIE Hunt Onset: 021 Anxiety state ANNMARIE Hunt Onset: 11/23/2020 Recurrent major depressive episodes ANNMARIE Hunt Onse t: 11/23/2020 Gastroesophageal reflux disease ANNMARIE Hunt Onset: 0 11/23/2020 Obstructive sleep apnea syndrome ANNMARIE Hunt Onset: 11/23/2020 Combined systolic and diastolic dysfunction Giovana Hunt STAKING TECHNICIAN Onset: 11/23/2020 Automatic implantable cardiac defibrillator in [...] Range Note Vitamin B12 & Folate 08/27/2021 [facility] enter [address] [place], [place] [id number] [phone] Vitamin B12 Level 348 pg/mL Normal 1 Folate 11.1 NG/ML Normal 2 Laboratory test finding 08/27/2021 [facility] [employer] [facility]a, pc Residential Field Manager: Dr Aníbal [place] [address] [phone] Vitamin D 25-Hydroxy <pending> Complete Blood Count 08/27/2021 [facility] [employer] [facility] Residential Field Manager: Dr Aníbal Adair [place], [place] [address] [phone] WBC 7.4 x10*3/UL 4.1 - 10.9 RBC [...] 2.0 - 7.8 Comprehensive Chem Profile 08/27/2021 [facility] Residential Field Manager: Dr Aníbal [place] [address] [phone] Glucose 72 mg/dL Low 74 - 99 [...] 60 mL/min >60 5 Lipid Profile 08/27/2021 [facility] Residential Field Manager: Dr Aníbal [place] [address] [phone] Cholesterol 171 mg/dL 131 - 200 Triglycerides 72 mg/dL 30 - 150 HDL Cholesterol 86 mg/dL High 35 - 60 LDL (Calculated) 71 CALC 50 - 159 Laboratory test finding 08/27/2021 [facility] Officer ists, pc Residential Field Manager: Dr Aníbal Adair [place] [address] [phone] Thyroid Stimulating Hormone 2.40 uIU/mL 0.3 6 [...] LITTLE GFR LEFT ESRD GFR <15 ON SAP BW CONSULTANT Procedures Date Code Description Status 06/02/2021 [id number] Bone Mineral Density Test Comple hemant 06/02/2021 [id number] Mammogram Completed 05/19/2021 16115 Office/Outpatient Established Mo d MDM 30-39 Min Completed Medical Devices Description No Information Available Encounters Type Date Location Provider Dx Diagnosis Office Visit 05/19/2021 8:40a [facility] Christian ELAINA Michelle JR F34.1 Dysthymic disorder F41.9 Anxiety disorder, unspecifie d I10 Essential (primary) hyperten piter S32.030D Wedge comprsn fx third lum v ert, subs for fx w routn heal G47.00 Insomnia, unspecified Assessments Date Code Description Provider 08/27/2021 F34.1 Dysthymic disorder Radha Briseno , [facility] 08/27/2021 F41.9 Anxiety disorder, unspecified Herman lewissangeeta Finn, [facility] 08/27/2021 G47.00 Insomnia, unspecified Radha Blanchard rra, [facility] 08/27/2021 Z63.4 Disappearance and of famil y member Radha Finn, [facility] 08/27/2021 Z23 Encounter for immunization Hermandebbiecole dhaliwal Finn, [facility] 08/27/2021 Z98.84 Bariatric surgery status Radha Finn, [facility] 05/19/2021 F34.1 Dysthymic disorder ELAINA Baum JR 05/19/2021 F41.9 Anxiety disorder, unspecified Ro ELAINA Waters JR 05/19/2021 I10 Essential (primary) hypertension ELAINA Camarena JR 05/19/2021 S32.030D Wedge compression fr acture of third lumbar vertebra, subsequent encounter for fracture with routine healing ELAINA Camarena JR 05/19/2021 G47.00 Insomnia, unspecified ELAINA Haas JR Plan of Treatment Future Appointment(s):* 02/28/2022 10:40 am - Nurse #2 at [facility] * 02/28/2022 11:00 am - ANNMARIE Hunt at [facility] * 10/27/2021 11:20 am - ANNMARIE Hunt at [facility] * 09/23/2021 11:20 am - ANNMARIE Hunt at [facility] 08/27/2021 - ANNMARIE Hunt* F34.1 Dysthymic disorder * F41.9 Anxiety disorder, unspecified * G47.00 Insomnia, unspecified * Z63.4 Disappearance and of family member * Z23 Encounter for immunization * Z98.84 Bariatric surgery status* Comments:* Check routine labs. Functional Status Description No Information Available Mental Status Description No Information Available Referrals Description No Information Available
--- OUTSIDE RECORDS SUMMARY | 2021-09-09 10:23 | CCD | Continuity of Care Document ---
Author Author Janey BRISENO Organization Unknown Address [address] [place] [address] Phone [phone] Care Team Providers Care Medical Dermatologist Name Role Phone Radha Briseno AUTM [phone] Problems Active Problems Provider Date Vitamin D deficiency Aníbal Adair MD Onset: 02/01/2019 Essential hypertension ANNMARIE Hunt Onset: 11/23/2020 Pure hypercholesterolemia ANNMARIE Hunt Onset: 021 Anxiety state ANNMARIE Hunt Onset: 11/23/2020 Recurrent major depressive episodes ANNMARIE Hunt Onse t: 11/23/2020 Gastroesophageal reflux disease ANNMARIE Hunt Onset: 0 11/23/2020 Obstructive sleep apnea syndrome ANNMARIE Hunt Onset: 11/23/2020 Combined systolic and diastolic dysfunction Giovana Hunt CHILDCARE ADMINISTRATOR Onset: 11/23/2020 Automatic implantable cardiac defibrillator in [...] Tablets 1 by mouth every day Pauly LittleELECTRIC RANGE SERVICER 01/18/2019 B-12 1000mcg Capsules 1 qd Not Sure Of Dose Pauly Little FNP 01/18/2019 Shingrix 50mcg/0.5ML Suspension Re c administer at pharmacy 1units Pauly LittleELECTRIC RANGE SERVICER 01/18 Clonazepam 0.5mg Tablets take one tablet by mouth at bedtime maximum daily dose = one tablet 30tabs Aníbal Adair MD Dexilant 60mg Capsules DR 1 by mouth every day 30caps K21.9 Pauly LittleELECTRIC RANGE SERVICER Entresto 49-51mg Tablets 1 qd PO Unknown [...] Range Note Vitamin B12 & Folate 08/27/2021 [facility] enter [address] [place] [address] [phone] Vitamin B12 Level 348 pg/mL Normal 1 Folate 11.1 NG/ML Normal 2 Laboratory test finding 08/27/2021 [facility] Boom Stick Worker: Dr Aníbal Adair [place], [place] [id number] [phone] Vitamin D 25-Hydroxy 41.1 ng/ml 24.0 - 80.0 3 Complete Blood Count 08/27/2021 [facility] Boom Stick Worker: Dr Aníbal [place] [address] [phone] WBC 7.4 x10*3/UL 4.1 - 10.9 RBC [...] 2.0 - 7.8 Comprehensive Chem Profile 08/27/2021 [facility] Boom Stick Worker: Dr Aníbal [place] [address] [phone] Glucose 72 mg/dL Low 74 - 99 [...] 60 mL/min >60 6 Lipid Profile 08/27/2021 [facility] Boom Stick Worker: Dr Aníbal [place] [address] [phone] Cholesterol 171 mg/dL 131 - 200 Triglycerides 72 mg/dL 30 - 150 HDL Cholesterol 86 mg/dL High 35 - 60 LDL (Calculated) 71 CALC 50 - 159 Laboratory test finding 08/27/2021 [facility] Boom Stick Worker: Dr Aníbal [place] [address] [phone] Thyroid Stimulating Hormone 2.40 uIU/mL 0.3 6 - 3.74 1 VITAMIN B12 NORMAL RANGE NORMAL 247 - 911 PG/ML INDETERMINATE 211 - 246 PG/ML DEFICIENT LESS THAN 211 PG/ML 2 FOLATE NORMAL RANGE NORMAL GREATER THAN 5.4 NG/ML INDETERMINATE 3.4-5.4 NG/ML DEFICIENT LESS THAN 3.4 NG/ML 3 This test was performed [employer] Vitamin D immunoassay kit. Values obtained with [...] LITTLE GFR LEFT ESRD GFR <15 ON LEAD FIRE PROTECTION ENGINEER Procedures Date Code Description Status 06/02/2021 511452013 Bone Mineral Density Test Comple hemant 06/02/2021 [id number] Mammogram Completed 05/19/2021 14462 Office/Outpatient Established Mo d MDM 30-39 Min Completed Medical Devices Description No Information Available Encounters Type Date Location Provider Dx Diagnosis Office Visit 05/19/2021 8:40a [facility] Christian leyla Dennis JR PA F34.1 Dysthymic disorder F41.9 Anxiety disorder, unspecifie d I10 Essential (primary) hyperten piter S32.030D Wedge comprsn fx third lum v ert, subs for fx w routn heal G47.00 Insomnia, unspecified Assessments Date Code Description Provider 08/27/2021 F34.1 Dysthymic disorder Radha Briseno , [facility] 08/27/2021 F41.9 Anxiety disorder, unspecified Herman Briseno, [facility] 08/27/2021 G47.00 Insomnia, unspecified Radha Blanchard rra, [facility] 08/27/2021 Z63.4 Disappearance and of famil y member Radha Briseno, [facility] 08/27/2021 Z23 Encounter for immunization Maryjane Mandelra, [facility] 08/27/2021 Z98.84 Bariatric surgery status Radha Briseno, [facility] 05/19/2021 F34.1 Dysthymic disorder ELA[place] Baum JR 05/19/2021 F41.9 Anxiety disorder, unspecified Ro ELAINA Waters JR 05/19/2021 I10 Essential (primary) hypertension ELAINA Camarena JR 05/19/2021 S32.030D Wedge compression fr acture of third lumbar vertebra, subsequent encounter for fracture with routine healing ELAINA Camarena JR 05/19/2021 G47.00 Insomnia, unspecified ELAINA Haas JR Plan of Treatment Future Appointment(s):* 02/28/2022 10:40 am - Nurse #2 at [facility] * 02/28/2022 11:00 am - ANNMARIE Hunt at [facility] * 10/27/2021 11:20 am - ANNMARIE Hunt at [facility] * 09/23/2021 11:20 am - ANNMARIE Hunt at [facility] 08/27/2021 - ANNMARIE Hunt* F34.1 [...] to Reason for Referral Status Appt Date [facility] CONSULT FOR BETINA CADE ANXIETY/DEPRESSION Created [address] , [address] [place] [address] [phone]
--- OUTSIDE RECORDS SUMMARY | 2021-09-09 10:23 | CCD | Continuity of Care Document ---
Author Author Janey Adair MD Organization Unknown Address [address] [place] [address] Phone [phone] Care Team Providers Care Hypo Splasher Name Role Phone Finn, Radha ANGUIANO AUTM [phone] Problems Active Problems Provider Date Vitamin D deficiency Aníbal Adair MD Onset: 02/01/2019 Essential hypertension ANNMARIE Hunt Onset: 11/23/2020 Pure hypercholesterolemia ANNMARIE Hunt Onset: 021 Anxiety state ANNMARIE Hunt Onset: 11/23/2020 Recurrent major depressive episodes ANNMARIE Hunt Onse t: 11/23/2020 Gastroesophageal reflux disease ANNMARIE Hunt Onset: 0 11/23/2020 Obstructive sleep apnea syndrome ANNMARIE Hunt Onset: 11/23/2020 Combined systolic and diastolic dysfunction 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 Onset: 11/23/2020 Automatic implantable cardiac defibrillator in [...] by mouth every day 30caps 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 Christian ELAINA Michelle JR F34.1 Dysthymic disorder F41.9 Anxiety disorder, unspecifie d I10 Essential (primary) hyperten piter S32.030D Wedge comprsn fx third lum v ert, subs for fx w routn heal G47.00 Insomnia, unspecified Office Visit 02/01/2021 3:20p [facility] 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 05/19/2021 - ELAINA Camarena JR* [...]
--- OUTSIDE RECORDS SUMMARY | 2021-09-09 10:23 | CCD | Continuity of Care Document ---
Author Author Janey BRISENO Organization Unknown Address [address] [place] [address] Phone [phone] Care Team Providers Care Template Cutter Name Role Phone Radha Briseno AUTM [phone] Problems Active Problems Provider Date Vitamin D deficiency Aníbal Adair MD Onset: 02/01/2019 Essential hypertension ANNMARIE Hunt Onset: 11/23/2020 Pure hypercholesterolemia ANNMARIE Hunt Onset: 021 Anxiety state ANNMARIE Hunt Onset: 11/23/2020 Recurrent major depressive episodes ANNMARIE Hunt Onse t: 11/23/2020 Gastroesophageal reflux disease ANNMARIE Hunt Onset: 0 11/23/2020 Obstructive sleep apnea syndrome ANNMARIE Hunt Onset: 11/23/2020 Combined systolic and diastolic dysfunction 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 12/08/2020 Buspirone HCL 10mg Tablets Take [...] Range Note Vitamin B12 & Folate 08/27/2021 [facility] enter [address] [place], [place] [id number] [phone] Vitamin B12 Level 348 pg/mL Normal 1 Folate 11.1 NG/ML Normal 2 Laboratory test finding 08/27/2021 [facility] Doctor Of Podiatric Medicine: Dr [place]íbal [place] [address] [phone] Vitamin D 25-Hydroxy <pending> Complete Blood Count 08/27/2021 [facility] Doctor Of Podiatric Medicine: Dr Aníbal Adair [place], [place] [id number] [phone] WBC 7.4 x10*3/UL 4.1 - 10.9 RBC [...] 2.0 - 7.8 Comprehensive Chem Profile 08/27/2021 [facility] Doctor Of Podiatric Medicine: Dr Aníbal [place] [address] [phone] Glucose 72 mg/dL Low 74 - 99 [...] 60 mL/min >60 5 Lipid Profile 08/27/2021 [facility] Doctor Of Podiatric Medicine: Dr Aníbal [place] [address] [phone] Cholesterol 171 mg/dL 131 - 200 Triglycerides 72 mg/dL 30 - 150 HDL Cholesterol 86 mg/dL High 35 - 60 LDL (Calculated) 71 CALC 50 - 159 Laboratory test finding 08/27/2021 [facility] Doctor Of Podiatric Medicine: Dr Aníbal [place] [address] [phone] Thyroid Stimulating Hormone 2.40 uIU/mL 0.3 6 [...] LITTLE GFR LEFT ESRD GFR <15 ON MECHANICAL SERVICE SPECIALIST Procedures Date Code Description Status 06/02/2021 [id number] Bone Mineral Density Test Comple hemant 06/02/2021 [id number] Mammogram Completed 05/19/2021 91021 Office/Outpatient Established Mo d MDM 30-39 Min Completed Medical Devices Description No Information Available Encounters Type Date Location Provider Dx Diagnosis Office Visit 05/19/2021 8:40a [facility] Christian ELAINA Michelle JR F34.1 Dysthymic disorder F41.9 Anxiety disorder, unspecifie d I10 Essential (primary) hyperten piter S32.030D Wedge comprsn fx third lum v ert, subs for fx w routn heal G47.00 Insomnia, unspecified Assessments Date Code Description Provider 08/27/2021 F34.1 Dysthymic disorder Radha Briseno , [facility] 08/27/2021 F41.9 Anxiety disorder, unspecified Herman lewissangeeta Finn, [facility] 08/27/2021 G47.00 Insomnia, unspecified Radha Blanchard rra, [facility] 08/27/2021 Z63.4 Disappearance and of famil y member Radha Finn, [facility] 08/27/2021 Z23 Encounter for immunization Hermandebbiecole dhaliwal Finn, [facility] 08/27/2021 Z98.84 Bariatric surgery status Radha Finn, [facility] 05/19/2021 F34.1 Dysthymic disorder ELAINA Baum [...] 02/28/2022 10:40 am - [facility]2 at [facility] * 02/28/2022 11:00 am - ANNMARIE Hunt at [facility] * 10/27/2021 11:20 am - ANNMARIE Hunt at [facility] * 09/23/2021 11:20 am - ANNMARIE Hunt at [facility] 08/27/2021 - ANNMARIE Hunt* F34.1 Dysthymic disorder * F41.9 Anxiety disorder, unspecified * G47.00 Insomnia, unspecified * Z63.4 Disappearance and of family member * Z23 Encounter for immunization * Z98.84 Bariatric surgery status* Comments:* Check routine labs. Functional Status Description No Information Available Mental Status Description No Information Available Referrals Description No Information Available
--- OUTSIDE RECORDS SUMMARY | 2021-09-09 10:23 | CCD | Continuity of Care Document ---
Author Author Janey BRISENO Organization Unknown Address [address] [place] [address] Phone [phone] Care Team Providers Care Regional Operations Director Name Role Phone Radha Briseno AUTM [phone] Problems Active Problems Provider Date Vitamin D deficiency Aníbal Adair MD Onset: 02/01/2019 Essential hypertension ANNMARIE Hunt Onset: 11/23/2020 Pure hypercholesterolemia ANNMARIE Hunt Onset: 021 Anxiety state ANNMARIE Hunt Onset: 11/23/2020 Recurrent major depressive episodes ANNMARIE Hunt Onse t: 11/23/2020 Gastroesophageal reflux disease ANNMARIE Hunt Onset: 0 11/23/2020 Obstructive sleep apnea syndrome ANNMARIE Hunt Onset: 11/23/2020 Combined systolic and diastolic dysfunction Giovana Hunt [employer]ING Onset: 11/23/2020 Automatic implantable cardiac defibrillator in [...] Range Note Vitamin B12 & Folate 08/27/2021 [facility] enter [address] [place], [place] [id number] [phone] Vitamin B12 Level 348 pg/mL Normal 1 Folate 11.1 NG/ML Normal 2 Laboratory test finding 08/27/2021 [facility] Patent Paralegal: Dr Aníbal [place] [address] [phone] Vitamin D 25-Hydroxy <pending> Complete Blood Count 08/27/2021 [facility] Patent Paralegal: Dr Aníbal Adair [place], [place] [id number] [phone] WBC 7.4 x10*3/UL 4.1 - 10.9 RBC [...] 2.0 - 7.8 Comprehensive Chem Profile 08/27/2021 [facility] Patent Paralegal: Dr Aníbal [place] [address] [phone] Glucose 72 mg/dL Low 74 - 99 [...] 60 mL/min >60 5 Lipid Profile 08/27/2021 [facility] Patent Paralegal: Dr Aníbal [place] [address] [phone] Cholesterol 171 mg/dL 131 - 200 Triglycerides 72 mg/dL 30 - 150 HDL Cholesterol 86 mg/dL High 35 - 60 LDL (Calculated) 71 CALC 50 - 159 Laboratory test finding 08/27/2021 [facility] Patent Paralegal: Dr Aníbal [place] [address] [phone] Thyroid Stimulating Hormone 2.40 uIU/mL 0.3 6 [...] LITTLE GFR LEFT ESRD GFR <15 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 Christian ELAINA Michelle JR F34.1 Dysthymic disorder F41.9 Anxiety disorder, unspecifie d I10 Essential (primary) hyperten piter S32.030D Wedge comprsn fx third lum v ert, subs for fx w routn heal G47.00 Insomnia, unspecified Assessments Date Code Description Provider 08/27/2021 F34.1 Dysthymic disorder Radha Briseno , [facility] 08/27/2021 F41.9 Anxiety disorder, unspecified Herman lewissangeeta Finn, [facility] 08/27/2021 G47.00 Insomnia, unspecified Radha Blanchard rra, [facility] 08/27/2021 Z63.4 Disappearance and of famil y member Radha Finn, [facility] 08/27/2021 Z23 Encounter for immunization Hermandebbiecole dhaliwal Finn, [facility] 08/27/2021 Z98.84 Bariatric surgery status Radha Finn, [facility] 05/19/2021 F34.1 Dysthymic disorder ELAINA Baum [...] 02/28/2022 10:40 am - [facility] #2 at [facility] * 02/28/2022 11:00 am - ANNMARIE Hunt at [facility] * 10/27/2021 11:20 am - ANNMARIE Hunt at [facility] * 09/23/2021 11:20 am - ANNMARIE Hunt at [facility] 08/27/2021 - ANNMARIE Hunt* F34.1 Dysthymic disorder * F41.9 Anxiety disorder, unspecified * G47.00 Insomnia, unspecified * Z63.4 Disappearance and of family member * Z23 Encounter for immunization * Z98.84 Bariatric surgery status* Comments:* Check routine labs. Functional Status Description No Information Available Mental Status Description No Information Available Referrals Description No Information Available
--- OUTSIDE RECORDS SUMMARY | 2021-09-09 10:24 | CCD ---
Author Author [facility] Organization [facility] Address Unknown Phone Unavailable Care Team Providers Care Analytics Consultant Name Role Phone Finn, Radha FOUNDRY WORKER Unavailable Unavailable Finn, Radha FOUNDRY WORKER Unavailable Unavailable Finn, Radha FOUNDRY WORKER Unavailable Unavailable Finn, Radha FOUNDRY WORKER Unavailable Unavailable Finn, Radha FOUNDRY WORKER Unavailable Unavailable Finn, Radha FOUNDRY WORKER Unavailable Unavailable Finn, Radha FOUNDRY WORKER Unavailable Unavailable Finn, Radha FOUNDRY WORKER Unavailable Unavailable Finn, Radha FOUNDRY WORKER Unavailable Unavailable Finn, Radha FOUNDRY WORKER Unavailable Unavailable Finn, Radha FOUNDRY WORKER Unavailable Unavailable Finn, Radha FOUNDRY WORKER Unavailable Unavailable Finn, Radha FOUNDRY WORKER Unavailable Unavailable Finn, Radha FOUNDRY WORKER Unavailable Unavailable Finn, Radha FOUNDRY WORKER Unavailable Unavailable Finn, Radha FOUNDRY WORKER Unavailable Unavailable Finn, Radha FOUNDRY WORKER Unavailable Unavailable Finn, Radha FOUNDRY WORKER Unavailable Unavailable Finn, Radha FOUNDRY WORKER Unavailable Unavailable Finn, Radha FOUNDRY WORKER Unavailable Unavailable Finn, Radha FOUNDRY WORKER Unavailable Unavailable Finn, Radha FOUNDRY WORKER Unavailable Unavailable Finn, Radha FOUNDRY WORKER Unavailable Unavailable Finn, Radha FOUNDRY WORKER Unavailable Unavailable Finn, Radha FOUNDRY WORKER Unavailable Unavailable Finn, Radha FOUNDRY WORKER Unavailable Unavailable Finn, Radha FOUNDRY WORKER Unavailable Unavailable Finn, Radha FOUNDRY WORKER Unavailable Unavailable Finn, Radha FOUNDRY WORKER Unavailable Unavailable Finn, Radha FOUNDRY WORKER Unavailable Unavailable Finn, Radha FOUNDRY WORKER Unavailable Unavailable Finn, Radha FOUNDRY WORKER Unavailable Unavailable Finn, Radha FOUNDRY WORKER Unavailable Unavailable Finn, Radha FOUNDRY WORKER Unavailable Unavailable Finn, Radha FOUNDRY WORKER Unavailable Unavailable PICKERAL JR, J PARKER PA-C Unavailable Unavailable PICKERAL JR, J PARKER PA-C Unavailable Unavailable PICKERAL JR, J PARKER PA-C Unavailable Unavailable PICKERAL JR, J PARKER PA-C Unavailable Unavailable PICKERAL JR, J PARKER PA-C Unavailable Unavailable PICKERAL JR, J PARKER PA-C Unavailable Unavailable PICKERAL JR, J PARKER PA-C Unavailable Unavailable PICKERAL JR, J PARKER PA-C Unavailable Unavailable PICKERAL JR, J PARKER PA-C Unavailable Unavailable PICKERAL JR, J PARKER PA-C Unavailable Unavailable PICKERAL JR, J PARKER PA-C Unavailable Unavailable PICKERAL JR, J PARKER PA-C Unavailable Unavailable PICKERAL JR, J PARKER PA-C Unavailable Unavailable PICKERAL JR, J PARKER PA-C Unavailable Unavailable PICKERAL JR, J PARKER PA-C Unavailable Unavailable PICKERAL JR, J PARKER PA-C Unavailable Unavailable PICKERAL JR, J PARKER PA-C Unavailable Unavailable PICKERAL JR, J PARKER PA-C Unavailable Unavailable PICKERAL JR, J PARKER PA-C Unavailable Unavailable PICKERAL JR, J PARKER PA-C Unavailable Unavailable PICKERAL JR, J PARKER PA-C Unavailable Unavailable PICKERAL JR, J PARKER PA-C Unavailable Unavailable PICKERAL JR, J PARKER PA-C Unavailable Unavailable PICKERAL JR, J PARKER PA-C Unavailable Unavailable PICKERAL JR, J PARKER PA-C Unavailable Unavailable PICKERAL JR, J PARKER PA-C Unavailable Unavailable PICKERAL JR, J PARKER PA-C Unavailable Unavailable WesHalie MD Unavailable Unavailable WesHalie MD Unavailable Unavailable WesHalie MD Unavailable Unavailable WesHalie MD Unavailable Unavailable Wes M Janna WILKINSON Unavailable Unavailable WesHalie MD Unavailable Unavailable WesHalie MD Unavailable Unavailable WesHalie MD Unavailable Unavailable WesHalie MD Unavailable Unavailable WesHalie MD Unavailable Unavailable Wes M Janna WILKINSON Unavailable Unavailable WesHalie MD Unavailable Unavailable WesHalie MD Unavailable Unavailable WesHalie MD Unavailable Unavailable Wes M Janna WILKINSON Unavailable Unavailable WesHalie MD Unavailable Unavailable Wes M Janna WILKINSON Unavailable Unavailable WesHalie MD Unavailable Unavailable WesHalie MD Unavailable Unavailable WesHalie MD Unavailable Unavailable WesHalie MD Unavailable Unavailable WesHalie MD Unavailable Unavailable WesHalie MD Unavailable Unavailable WesHalie romero MD Unavailable Unavailable WesHalie MD Unavailable Unavailable Halie Harvey MD Unavailable Unavailable Halie Harvey MD Unavailable Unavailable Halie Harvey MD Unavailable Unavailable WesHalie romero MD Unavailable Unavailable Halie Harvey MD Unavailable Unavailable WesHalie MD Unavailable Unavailable Halie Harvey MD Unavailable Unavailable Halie Harvey MD Unavailable Unavailable Halie Harvey MD Unavailable Unavailable Halie Harvey MD Unavailable Unavailable WesHalie MD Unavailable Unavailable Halie Harvey MD Unavailable Unavailable WesHalie coughlin MD Unavailable Unavailable Halie Harvey MD Unavailable Unavailable Halie Harvey MD Unavailable Unavailable Halie Harvey MD Unavailable Unavailable Halie Harvey MD Unavailable Unavailable WesHalie MD Unavailable Unavailable WesHalie MD Unavailable Unavailable WesHalie MD Unavailable Unavailable Halie Harvey MD Unavailable Unavailable Halie Harvey MD Unavailable Unavailable Halie Harvey MD Unavailable Unavailable WesHalie MD Unavailable Unavailable WesHalie MD Unavailable Unavailable Wes, M Janna MD Unavailable Unavailable Halie Harvey MD Unavailable Unavailable Halie Harvey MD Unavailable Unavailable Halie Harvey MD Unavailable Unavailable Halie Harvey MD Unavailable Unavailable Halie Harvey MD Unavailable Unavailable Halie Harvey MD Unavailable Unavailable Halie Harvey MD Unavailable Unavailable Halie Harvey MD Unavailable Unavailable Halie Harvey MD Unavailable Unavailable Halie Harvey MD Unavailable Unavailable Halie Harvey MD Unavailable Unavailable Halie Harvey MD Unavailable Unavailable Halie Harvey MD Unavailable Unavailable Halie Harvey MD Unavailable Unavailable Halie Harvey MD Unavailable Unavailable Halie Harvey MD Unavailable Unavailable Halie Harvey MD Unavailable Unavailable Halie Harvey MD Unavailable Unavailable Halie Harvey MD Unavailable Unavailable Halie Harvey MD Unavailable Unavailable Halie Harvey MD Unavailable Unavailable Halie Harvey MD Unavailable Unavailable Halie Harvey MD Unavailable Unavailable Halie Harvey MD Unavailable Unavailable Halie Harvey MD Unavailable Unavailable Halie Harvey MD Unavailable Unavailable Halie Harvey MD Unavailable Unavailable Halie Harvey MD Unavailable Unavailable Halie Harvey MD Unavailable Unavailable Halie Harvey MD Unavailable Unavailable Halie Harvey MD Unavailable Unavailable Halie Harvey MD Unavailable Unavailable Halie Harvey MD Unavailable Unavailable Katie Dorman MD Unavailable Unavailable Katie Dorman MD Unavailable Unavailable Katie Dorman MD Unavailable Unavailable Katie Dorman MD Unavailable Unavailable Katie Dorman MD Unavailable Unavailable Katie Dorman MD Unavailable Unavailable Katie Dorman MD Unavailable Unavailable Katie Dorman MD Unavailable Unavailable Keyona Sexton MD Unavailable Unavailable Keyona Sexton MD Unavailable Unavailable Keyona Sexton MD Unavailable Unavailable Keyona Sexton MD Unavailable Unavailable Keyona Sexton MD Unavailable Unavailable Keyona Sexton MD Unavailable Unavailable Keyona Sexton MD Unavailable Unavailable Keyona Sexton MD Unavailable Unavailable Keyona Sexton MD Unavailable Unavailable Keyona Sexton MD Unavailable Unavailable Keyona Sexton MD Unavailable Unavailable Keyona Sexton MD Unavailable Unavailable Sexton, Keyona Gagnon MD Unavailable Unavailable Sexton, Keyona Gagnon MD Unavailable Unavailable Sexton, Keyona Gagnon MD Unavailable Unavailable Sexton, Keyona Gagnon MD Unavailable Unavailable Sexton, Keyona Gagnon MD Unavailable Unavailable Sexton, Keyona Gagnon MD Unavailable Unavailable Sexton, Keyona Gagnon MD Unavailable Unavailable Sexton, Keyona Gagnon MD Unavailable Unavailable Sexton, Keyona Gagnon MD Unavailable Unavailable Sexton, Kyeona Gagnon MD Unavailable Unavailable Sexton, Keyona Gagnon MD Unavailable Unavailable Sexton, Keyona Gagnon MD Unavailable Unavailable Sexton, Keyona Gagnon MD Unavailable Unavailable Sexton, Keyona Gagnon MD Unavailable Unavailable Sexton, Keyona Gagnon MD Unavailable Unavailable Sexton, Keyona Gagnon MD Unavailable Unavailable Sexton, Keyona Gagnon MD Unavailable Unavailable Sexton, Keyona Gagnon MD Unavailable Unavailable Sexton, Keyona Gagnon MD Unavailable Unavailable Sexton, Keyona Gagnon MD Unavailable Unavailable Sexton, Keyona Gagnon MD Unavailable Unavailable Sexton, Keyona Gagnon MD Unavailable Unavailable Sexton, Keyona Gagnon MD Unavailable Unavailable Sexton, Keyona Gagnon MD Unavailable Unavailable Sexton, Keyona Gagnon MD Unavailable Unavailable Sexton, Keyona Gagnon MD Unavailable Unavailable Sexton, Keyona Gagnon MD Unavailable Unavailable Sexton, Keyona Gagnon MD Unavailable Unavailable Sexton, Keyona Gagnon MD Unavailable Unavailable Sexton, Keyona Gagnon MD Unavailable Unavailable Sexton, Keyona Gagnon MD Unavailable Unavailable Sexton, Keyona Gagnon MD Unavailable Unavailable Sexton, Keyona Gagnon MD Unavailable Unavailable Sexton, Keyona Gagnon MD Unavailable Unavailable Sexton, Keyona Gagnon MD Unavailable Unavailable Sexton, Keyona Gagnon MD Unavailable Unavailable Sexton, Keyona Gagnon MD Unavailable Unavailable Sexton, Keyona Gagnon MD Unavailable Unavailable [facility] Unavailable Halie Harvey MD Unavailable Unavailable Halie Harvey MD Unavailable Unavailable Halie Harvey MD Unavailable Unavailable Halie Harvey MD Unavailable Unavailable Halie Harvey MD Unavailable Unavailable Halie Harvey MD Unavailable Unavailable Halie Harvey MD Unavailable Unavailable Halie Harvey MD Unavailable Unavailable Halie Harvey MD Unavailable Unavailable Halie Harvey MD Unavailable Unavailable Halie Harvey MD Unavailable Unavailable Halie Harvey MD Unavailable Unavailable Halie Harvey MD Unavailable Unavailable Halie Harvey MD Unavailable Unavailable Halie Harvey MD Unavailable Unavailable Halie Harvey MD Unavailable Unavailable Halie Harvey MD Unavailable Unavailable Halie Harvey MD Unavailable Unavailable WesHalie coughlin MD Unavailable Unavailable WesHalie MD Unavailable Unavailable WesHalie coughlin MD Unavailable Unavailable WesHalie MD Unavailable Unavailable WesHalie MD Unavailable Unavailable WesHalie MD Unavailable Unavailable WesHalie MD Unavailable Unavailable Halie Harvey MD Unavailable Unavailable WesHalie MD Unavailable Unavailable WesHalie MD Unavailable Unavailable WesHalie MD Unavailable Unavailable WesHalie MD Unavailable Unavailable WesHalie MD Unavailable Unavailable WesHalie MD Unavailable Unavailable WesHalie MD Unavailable Unavailable WesHalie MD Unavailable Unavailable WesHalie MD Unavailable Unavailable WesHalie romero MD Unavailable Unavailable WesHalie coughlin MD Unavailable Unavailable Halie Harvey MD Unavailable Unavailable Halie Harvey MD Unavailable Unavailable Halie Harvey MD Unavailable Unavailable Halie Harvey MD Unavailable Unavailable Halie Harvey MD Unavailable Unavailable Halie Harvey MD Unavailable Unavailable Halie Harvey MD Unavailable Unavailable Halie Harvey MD Unavailable Unavailable Halie Harvey MD Unavailable Unavailable Halie Harvey MD Unavailable Unavailable Halie Harvey MD Unavailable Unavailable Halie Harvey MD Unavailable Unavailable Halie Harvey MD Unavailable Unavailable Halie Harvey MD Unavailable Unavailable Halie Harvey MD Unavailable Unavailable Halie Harvey MD Unavailable Unavailable Halie Harvey MD Unavailable Unavailable Halie Harvey MD Unavailable Unavailable Halie Harvey MD Unavailable Unavailable Halie Hravey MD Unavailable Unavailable Halie Harvey MD Unavailable Unavailable Halie Harvey MD Unavailable Unavailable Halie Harvey MD Unavailable Unavailable Halie Harvey MD Unavailable Unavailable Halie Harvey MD Unavailable Unavailable Halie Harvey MD Unavailable Unavailable Halie Harvey MD Unavailable Unavailable Halie Harvey MD Unavailable Unavailable Halie Harvey MD Unavailable Unavailable WesHalie MD Unavailable Unavailable Halie Harvey MD Unavailable Unavailable Wes, Halie Saldivar MD Unavailable Unavailable Wes, Halie Saldivar MD Unavailable Unavailable Wes, Halie Saldivar MD Unavailable Unavailable Wes, Halie Saldivar MD Unavailable Unavailable Wes, Halie Saldivar MD Unavailable Unavailable Wes, Halie Saldivar MD Unavailable Unavailable Wes, Halie Saldivar MD Unavailable Unavailable Wes, Halie Saldivar MD Unavailable Unavailable Wes, Halie Saldivar MD Unavailable Unavailable Wes, Halie Saldivar MD Unavailable Unavailable Wes, Halie Saldivar MD Unavailable Unavailable Wes, Halie Saldivar MD Unavailable Unavailable Wes, Halie Saldivar MD Unavailable Unavailable Wes, Halie Saldivar MD Unavailable Unavailable Wes, Halie Saldivar MD Unavailable Unavailable Wes, Halie Saldivar MD Unavailable Unavailable Tomaiuoli, CLEMENTE Ramonita ANP-C Unavailable tomaiuo CLEMENTE Harden Ramonita ANP-C Unavailable tomaiuo TORSTEN HardenE Ramonita ANP-C Unavailable tomaiuo Lannyuorichard CLEMENTE Ramonita ANP-C Unavailable tomaiuo Juliusaiuorichard CLEMENTE Ramonita ANP-C Unavailable tomaiuo Lannyuorichard CLEMENTE Ramonita ANP-C Unavailable tomaiuo Dereck CLEMENTE Ramonita ANP-C Unavailable tomaiuo Dereck CLEMENTE Ramonita ANP-C Unavailable tomaiuo Lannyuorichard CLEMENTE Ramonita ANP-C Unavailable tomaiuo Lannyuorichard CLEMENTE Ramonita ANP-C Unavailable tomaiuo Lannyuorichard CLEMENTE Ramonita ANP-C Unavailable tomaiuo Lannyuorichard CLEMENTE Ramonita ANP-C Unavailable tomaiuo Dereck CLEMENTE Ramonita ANP-C Unavailable tomaiuo Dereck CLEMENTE Ramonita ANP-C Unavailable tomaiuo TORSTEN HardenE Ramonita ANP-C Unavailable tomaiuo CLEMENTE Harden Ramonita ANP-C Unavailable tomaiuo TomaiuoCLEMENTE ramos Ramonita ANP-C Unavailable tomaiuo LannyuoCLEMENTE ramos Ramonita ANP-C Unavailable tomaiuo JuliusaiuoCLEMENTE ramos Ramonita ANP-C Unavailable tomaiuo TomaiuoCLEMENTE ramos Ramonita ANP-C Unavailable tomaiuo TomioanauoCLEMENTE ramos Ramonita ANP-C Unavailable tomaiuo TomaiuoCLEMENTE ramos Ramonita ANP-C Unavailable tomaiuo TomaiuoCLEMENTE raoms Ramonita ANP-C Unavailable tomaiuo Tomaiuorichard CLEMENTE Ramonita ANP-C Unavailable tomaiuo TomaiuoTORSTEN ramosE Ramonita ANP-C Unavailable tomaiuo TomaiCLEMENTE acevedo Ramonita ANP-C Unavailable tomaiuo TomaiuoTORSTEN ramosE Ramonita ANP-C Unavailable tomaiuo TomaiuoTORSTEN ramosE Ramonita ANP-C Unavailable tomaiuo CLEMENTE Harden Ramonita ANP-C Unavailable tomaiuo CLEMENTE Harden Ramonita ANP-C Unavailable tomaiuo TomaiuoCLEMENTE ramos Ramonita ANP-C Unavailable tomaiuo CLEMENTE Harden Ramonita ANP-C Unavailable tomaiuo CLEMENTE Harden Ramonita ANP-C Unavailable tomaiuo TomaiuoTORSTEN ramosE Ramonita ANP-C Unavailable tomaiuo LannyuoCLEMENTE ramos Ramonita ANP-C Unavailable tomaiuo Juliusaiuorichard CLEMENTE Ramonita ANP-C Unavailable tomaiuo TomaiuoTORSTEN ramosE Ramonita ANP-C Unavailable tomaiuo CLEMENTE Harden Ramonita ANP-C Unavailable tomaiuo CLEMENTE Harden ANP-C Unavailable [email or web address] CLEMENTE Harden ANP-C Unavailable [email or web address] Fons, M Kecia FOUNDRY WORKER Unavailable Unavailable Fons, M Kecia FOUNDRY WORKER Unavailable Unavailable Fons, M Kecia FOUNDRY WORKER Unavailable Unavailable Fons, M Kecia FOUNDRY WORKER Unavailable Unavailable Fons, M Kecia FOUNDRY WORKER Unavailable Unavailable Fons, M Kecia FOUNDRY WORKER Unavailable Unavailable Fons, M Kecia FOUNDRY WORKER Unavailable Unavailable Fons, M Kecia FOUNDRY WORKER Unavailable Unavailable Fons, M Kecia FOUNDRY WORKER Unavailable Unavailable Fons, M Kecia FOUNDRY WORKER Unavailable Unavailable Fons, M Kecia FOUNDRY WORKER Unavailable Unavailable Fons, M Kecia FOUNDRY WORKER Unavailable Unavailable Fons, M Kecia FOUNDRY WORKER Unavailable Unavailable Fons, M Kecia FOUNDRY WORKER Unavailable Unavailable Fons, M Kecia FOUNDRY WORKER Unavailable Unavailable Fons, M Kecia FOUNDRY WORKER Unavailable Unavailable Fons, M Kecia FOUNDRY WORKER Unavailable Unavailable Fons, M Kecia FOUNDRY WORKER Unavailable Unavailable Fons, M Kecia FOUNDRY WORKER Unavailable Unavailable Fons, M Kecia FOUNDRY WORKER Unavailable Unavailable Fons, M Kecia FOUNDRY WORKER Unavailable Unavailable Fons, M Kecia FOUNDRY WORKER Unavailable Unavailable Fons, M Kecia FOUNDRY WORKER Unavailable Unavailable Fons, M Kecia FOUNDRY WORKER Unavailable Unavailable Fons, M Kecia FOUNDRY WORKER Unavailable Unavailable Fons, M Kecia FOUNDRY WORKER Unavailable Unavailable Fons, M Kecia FOUNDRY WORKER Unavailable Unavailable Fons, M Kecia FOUNDRY WORKER Unavailable Unavailable Fons, M Kecia FOUNDRY WORKER Unavailable Unavailable Fons, M Kecia FOUNDRY WORKER Unavailable Unavailable Fons, M Kecia FOUNDRY WORKER Unavailable Unavailable Fons, M Kecia FOUNDRY WORKER Unavailable Unavailable Fons, M Kecia FOUNDRY WORKER Unavailable Unavailable Fons, M Ekcia FOUNDRY WORKER Unavailable Unavailable Fons, M Kecia FOUNDRY WORKER Unavailable Unavailable Fons, M Kecia FOUNDRY WORKER Unavailable Unavailable Fons, M Kecia FOUNDRY WORKER Unavailable Unavailable Fons, M Kecia FOUNDRY WORKER Unavailable Unavailable Fons, M Kecia FOUNDRY WORKER Unavailable Unavailable Fons, M Kecia FOUNDRY WORKER Unavailable Unavailable Fons, M Kecia FOUNDRY WORKER Unavailable Unavailable Fons, M Kecia FOUNDRY WORKER Unavailable Unavailable Fons, M Kecia FOUNDRY WORKER Unavailable Unavailable Fons, M Kecia FOUNDRY WORKER Unavailable Unavailable Fons, M Kecia FOUNDRY WORKER Unavailable Unavailable Fons, M Kecia FOUNDRY WORKER Unavailable Unavailable Fons, M Kecia FOUNDRY WORKER Unavailable Unavailable Fons, M Kecia FOUNDRY WORKER Unavailable Unavailable Fons, M Kecia FOUNDRY WORKER Unavailable Unavailable Fons, M Kceia FOUNDRY WORKER Unavailable Unavailable Fons, M Kecia FOUNDRY WORKER Unavailable Unavailable Fons, M Kecia FOUNDRY WORKER Unavailable Unavailable FonHalie altman FOUNDRY WORKER Unavailable Unavailable Re-disclosure Warning The records that you are about to access may contain information from federally-assisted alcohol or drug abuse programs. If such information is present, then the following federally mandated warning applies: This information has been disclosed to you from records protected by federal confidentiality rules (42 CFR part 2). The federal rules prohibit you from making any further disclosure of this information unless further disclosure is expressly permitted by the written consent of the person to whom it pertains or as otherwise permitted by 42 CFR part 2. A general authorization for the release of medical or other information is NOT sufficient for this purpose. The Federal rules restrict any use of the information to criminally investigate or prosecute any alcohol or drug abuse patient.The records that you are about to access may contain highly sensitive health information, the redisclosure of which is protected by Article 27-F of the [facility] Public Health law. If you continue you may have access to information: Regarding HIV / AIDS; Provided by facilities licensed or operated by the [facility] Office of Mental Health; or Provided by the [facility] Office for People With Developmental Disabilities. If such information is present, then the following [facility] mandated warning applies: This information has been disclosed to you from confidential records which are protected by state law. State law prohibits you from making any further disclosure of this information without the specific written consent of the person to whom it pertains, or as otherwise permitted by law. Any unauthorized further disclosure in violation of state law may result in a fine or [place] [facility] sentence or both. A general authorization for the release of medical or other information is NOT sufficient authorization for further disc losure. Advance Directives Directive Description [employer] Manager Status Observation Descr iption Data Source(s) Ebola Screening Performed completed Ebol a Screening Performed [facility] ([facility]) Note: Within the last month, have you tr aveled outside of the [place]? -NO Family History Family Member Name Family Member Gender Family Member Status Date o f Status Description Data Source(s) Unknown Male Problem [facility] ([facility]) Encounters Encounter Providers Location Date Indications Data Source(s ) Emergency Attender: Wolfgang Doramn MD 05:06:00 PM EDT - 08/31/2021 07:38:00 PM EDT [facility] Patient discharged. Outpatient Attender: Radha Ordoñez 10:40:00 AM EDT [facility] ([facility] ) Outpatient Referrer: Janna MILLIGANMILEY-SJP.MILEY 08/13 12:00:00 AM EDT [facility] Outpatient [email or web address]-[email or web address] 08/25/2021 12:58:15 PM EDT [facility] Outpatient Referrer: Janna MILLIGANCT-SJP.SYR 07/14 03:29:17 PM EDT [facility] Outpatient Attender: Kecia Huggins FNPReferrer: Janna MILLIGANMILEY-SJP.MILEY 07/22/2021 12:00:00 AM EDT - 07/22/2021 09:39:51 AM EDT [facility] Outpatient Attender: PARKER Ordoñez 0 05/19/2021 08:40:00 AM EDT [facility] ([facility] ) Outpatient Referrer: Janna MILLIGANCT-SJP.SYR 04/13 04:12:09 PM EDT [facility] Outpatient Attender: Radha Ordoñez 03:20:00 PM EDT [facility] ([facility] ) Outpatient [email or web address].[email or web address] 01/14/2021 01:44:39 PM EST [facility] Outpatient Attender: Kecia MILLIGANMILEY-SJP.MILEY 12:00:00 AM EST - 01/14/2021 09:39:21 AM EST [facility] Outpatient [email or web address] 01/14/2021 12:00:00 AM EST [facility] Outpatient Attender: Kalin Sexton MD Physical Therapy 12/22/2020 0 2:15:00 PM EST [facility] ([facility] ) Recurring Patient Referrer: Janna Harvey MD 11/24/2020 1 2:02:16 PM EST [facility] Outpatient Attender: Radha Ordoñez 09:00:00 AM EST [facility] ([facility] ) Outpatient Attender: Ramonita DELGADO 11/17/2020 12:00:00 AM EST [facility] Recurring Patient Referrer: Janna Harvey MD 10/23/2020 0 2:32:23 PM EST [facility] Outpatient Attender: Radha Ordoñez 07:20:00 AM EST [facility] ([facility] ) Unknown<td ID="encounterTypeDescriptionI [id number]">H Adult Prophy</td><td>Floridalma Solitario [facility]</td><td>[facility]</td><td>10/20/2020</td><td></td> Attender: Floridalma Solitario RD [facility] 10/20/2020 07:53:00 AM EST - 10/20/2020 08:25:00 AM EST [facility] ([facility]) Unknown [address] [address] 10/20/2020 12:00:[address] [facility] ([facility]) Outpatient Attender: Ramonita FRENCHCRefer rer: Radha ANGUIANO [id number] 10/19/2020 12:00:00 AM EST Wedge compression fracture of third lumbar vertebra, subsequent encounter for fracture with delayed healing [facility] Wedge compression fracture of third lumb ar vertebra, subsequent encounter for fracture with delayed healing Outpatient Referrer: Ramonita DELGADO 10/19 12:00:00 AM EST Wedge compression fracture of t11-T12 vertebra, sequela [facility] Wedge compression fracture of t11-T12 ve rtebra, sequela Outpatient Attender: Ramonita FRENCHCReferrer: Sun ANGUIANO 10/14/2020 12:00:00 AM EST [facility] Outpatient [email or web address] 10/12/2020 10:58:54 AM EST [facility] Outpatient Attender: PARKER SWIFT JR Mana Longrosalioherbie 1 11/30/2019 07:40:00 AM EST [facility] ([facility] ) Outpatient Attender: Radha Ordoñez 12:40:00 PM EST [facility] ([facility] ) Outpatient Attender: Kecia MANRIQUE.[email or web address] 0 12:00:00 AM EDT - 09/01/2020 09:28:00 AM EDT [facility] Outpatient Attender: Radha Valdovinosdarrian Longhao 10:20:00 AM EDT [facility] ([facility] ) Immunizations Vaccine Date Status Description Data Source(s) Influenza, injectable, MDCK, preservative free, jay valent 08/27/2021 11:51:00 AM EDT completed [facility] ([facility]) Influenza, injectable, MDCK, preservative free, jay valent 08/27/2021 11:47:00 AM EDT completed [facility] ([facility]) COVID-19 VACCINE Moderna 02/05/2021 12:00:00 AM EDT completed [facility] Vaccine Series Complete: YESThis Data wa s Submitted to [facility] Via [employer]. COVID-19 VACCINE Moderna 01/08/2021 12:00:00 AM EST completed [facility] Vaccine Series Complete: NOThis Data was Submitted to [facility] Via [employer]. This CVX code allows reporting of a vacc ination when formulation is unknown (for example, when recording a Influenza vaccination when noted on a vaccination card) 08/13/2020 10:22:00 AM EDT completed [facility] ([facility]) Medications Medication Brand Name Start Date Product Form Dose Route Admi nistrative Instructions Pharmacy Instructions Status Indications Reaction Description Data Source(s) 100 mg 09/04/2021 12:00:00 AM EDT tablet 30 TAKE ONE TABLET BY MOUTH EVERY DAY TAKE ONE TABLET BY MOUTH EVERY DAY SOLD: 09/06/2021 [facility] 50 mg 09/01/2021 12:00:00 AM EDT tablet 20 TAKE ONE TABLET BY MOUTH EVERY 6 HOURS MAXIMUM DAILY DOSE = 4 TAKE ONE TABLET BY MOUTH EVERY 6 HOURS M AXIMUM DAILY DOSE = 4 SOLD: 09/06/2021 [facility] Immunization Adminstration,1 Vaccine/Toxoid 08/27/2021 12:00 :00 AM EDT completed [facility] ([facility]) Medication administered onsite 0.5 mg 08/17/2021 12:00:00 AM EDT tablet 30 TAKE ONE TABLET BY MOUTH AT BEDTIME MAXIMUM DAILY DOSE = 1 TAKE ONE TABLET BY MOUTH AT BEDTIME MAXI MUM DAILY DOSE = 1 SOLD: 08/19/2021 [facility] 150 mg 08/15/2021 12:00:00 AM EDT tablet 90 TAKE ONE TABLET BY MOUTH AT BEDTIME TAKE ONE TABLET BY MOUTH AT BEDTIME SOLD: 08/19/2021 [facility] 49-51 mg 07/23/2021 12:00:00 AM EDT tablet 180 TAKE ONE TABLET BY MOUTH TWO TIMES A DAY TAKE ONE TABLET BY MOUTH TWO TIMES A DAY SOLD: 07/26/2021 [facility] sacubitril 49 MG / valsartan 51 MG Oral Tablet [Entresto] sacubitril-valsartan (Entresto) 49-51 MG TABS sacubitril-valsartan (Entresto) 49-51 MG TABS 07/22/2021 12:00:00 AM EDT 1 {tbl} Oral active Take 1 tablet by mouth 2 (two) times a day [facility] carvedilol 25 MG Oral Tablet carvedilol (COREG) 25 MG tablet carvedilol (COREG) 25 MG tablet 07/20/2021 12:00:00 AM EDT 50 mg Oral activ e Take 2 tablets (50 mg total) by mouth 2 (two) times a day with meals [facility] carvedilol 25 MG Oral Tablet CARVEDILOL 07/20/2021 12:00:00 AM EDT tab let 360 TAKE TWO TABLETS BY MOUTH TWICE A DAY WITH FOOD TAKE TWO TABLETS BY MOUTH TWICE A DAY WITH FOOD SOLD: 07/22/2021 [facility] 0.5 mg 07/17/2021 12:00:00 AM EDT tablet 30 TAKE ONE TABLET BY MOUTH AT BEDTIME MAXIMUM DAILY DOSE = 1 TAKE ONE TABLET BY MOUTH AT BEDTIME MAXI MUM DAILY DOSE = 1 SOLD: 07/18/2021 [facility] 24 HR Bupropion Hydrochloride 300 MG Extended Release Oral T ablet BUPROPION HCL 06/18/2021 12:00:00 AM EDT tablet extended release 24 hr 90 TAKE ONE TABLET BY MOUTH EVERY DAY TAKE ONE TABLET BY MOUTH EVERY DAY SOLD: 06/18/2021 [facility] 60 mg 06/16/2021 12:00:00 AM EDT capsule,biphase delayed releas 30 TAKE ONE CAPSULE BY MOUTH EVERY DAY TAKE ONE CAPSULE BY MOUTH EVERY DAY SOLD: 07/18/2021 [facility] 100 mg 06/16/2021 12:00:00 AM EDT tablet 30 TAKE ONE TABLET BY MOUTH EVERY DAY TAKE ONE TABLET BY MOUTH EVERY DAY SOLD: 06/18/2021 [facility] 60 mg 06/16/2021 12:00:00 AM EDT capsule,biphase delayed releas 20 TAKE ONE CAPSULE BY MOUTH EVERY DAY TAKE ONE CAPSULE BY MOUTH EVERY DAY SOLD: 08/19/2021 [facility] 0.5 mg 06/16/2021 12:00:00 AM EDT tablet 30 TAKE ONE TABLET BY MOUTH AT BEDTIME MAXIMUM DAILY DOSE = 1 TAKE ONE TABLET BY MOUTH AT BEDTIME MAXI MUM DAILY DOSE = 1 SOLD: 06/18/2021 [facility] 100 mg 06/16/2021 12:00:00 AM EDT tablet 30 TAKE ONE TABLET BY MOUTH EVERY DAY TAKE ONE TABLET BY MOUTH EVERY DAY SOLD: 07/18/2021 [facility] 60 mg 06/16/2021 12:00:00 AM EDT capsule,biphase delayed releas 30 TAKE ONE CAPSULE BY MOUTH EVERY DAY TAKE ONE CAPSULE BY MOUTH EVERY DAY SOLD: 06/18/2021 [facility] 100 mg 06/16/2021 12:00:00 AM EDT tablet 20 TAKE ONE TABLET BY MOUTH EVERY DAY TAKE ONE TABLET BY MOUTH EVERY DAY SOLD: 08/19/2021 [facility] atorvastatin 20 MG Oral Tablet ATORVASTATIN CALCIUM 06/05/2021 1 2:00:00 AM EDT tablet 90 TAKE ONE TABLET BY MOUTH ONCE DA HERBERT TAKE ONE TABLET BY MOUTH ONCE DAILY SOLD: 06/07/2021 [facility] atorvastatin 20 MG Oral Tablet ATORVASTATIN CALCIUM 06/05/2021 1 2:00:00 AM EDT tablet 1 TAKE ONE TABLET BY MOUTH ONCE DA HERBERT TAKE ONE TABLET BY MOUTH ONCE DAILY SOLD: 09/06/2021 [facility] 100 mg 06/05/2021 12:00:00 AM EDT tablet 30 TAKE ONE TABLET BY MOUTH EVERY DAY TAKE ONE TABLET BY MOUTH EVERY DAY SOLD: 06/07/2021 [facility] atorvastatin 20 MG Oral Tablet atorvastatin (LIPITOR) 20 MG tablet atorvastatin (LIPITOR) 20 MG tablet 06/04/2021 12:00:00 AM EDT active TAKE ONE TABLET BY MOUTH EVERY DAY [facility] 0.5 mg 05/19/2021 12:00:00 AM EDT tablet 30 TAKE ONE TABLET BY MOUTH EVERY DAY AT BEDTIME MAXIMUM DAILY DOSE = 1 TAKE ONE TABLET BY MOUTH EVERY DAY AT BEDTIME MAXIMUM DAILY DOSE = 1 SOLD: 05/19/2021 [facility] Amitriptyline Hydrochloride 150 MG Oral Tablet AMITRIPTYLINE HCL 05/15/2021 12:00:00 AM EDT tablet 30 TAKE ONE TABLET BY MOUTH AT BEDTIME TAKE ONE TABLET BY MOUTH AT BEDTIME SOLD: 05/19/2021 [facility] Amitriptyline Hydrochloride 150 MG Oral Tablet AMITRIPTYLINE HCL 05/15/2021 12:00:00 AM EDT tablet 30 TAKE ONE TABLET BY MOUTH AT BEDTIME TAKE ONE TABLET BY MOUTH AT BEDTIME SOLD: 07/18/2021 [facility] Amitriptyline Hydrochloride 150 MG Oral Tablet AMITRIPTYLINE HCL 05/15/2021 12:00:00 AM EDT tablet 30 TAKE ONE TABLET BY MOUTH AT BEDTIME TAKE ONE TABLET BY MOUTH AT BEDTIME SOLD: 06/18/2021 [facility] 0.5 mg 04/19/2021 12:00:00 AM EDT tablet 30 TAKE ONE TABLET BY MOUTH AT BEDTIME MAXIMUM DAILY DOSE = ONE TABLET TAKE ONE TABLET BY MOUTH AT BEDTIME MAXIMUM DAILY DOSE = ONE TABLET SOLD: 04/19/2021 [facility] 100 mg 04/08/2021 12:00:00 AM EDT tablet 30 TAKE ONE TABLET BY MOUTH EVERY DAY TAKE ONE TABLET BY MOUTH EVERY DAY SOLD: 04/19/2021 [facility] 0.5 mg 03/17/2021 12:00:00 AM EDT tablet 30 TAKE ONE TABLET BY MOUTH AT BEDTIME MAXIMUM DAILY DOSE = ONE TABLET TAKE ONE TABLET BY MOUTH AT BEDTIME MAXIMUM DAILY DOSE = ONE TABLET SOLD: 03/20/2021 [facility] 0.5 mg 02/16/2021 12:00:00 AM EDT tablet 30 TAKE ONE TABLET BY MOUTH AT BEDTIME MAXIMUM DAILY DOSE = 1 TAKE ONE TABLET BY MOUTH AT BEDTIME MAXI MUM DAILY DOSE = 1 SOLD: 02/17/2021 [facility] Amitriptyline Hydrochloride 150 MG Oral Tablet AMITRIPTYLINE HCL 02/11/2021 12:00:00 AM EDT tablet 30 TAKE ONE TABLET BY MOUTH AT BEDTIME TAKE ONE TABLET BY MOUTH AT BEDTIME SOLD: 04/19/2021 [facility] Amitriptyline Hydrochloride 150 MG Oral Tablet AMITRIPTYLINE HCL 02/11/2021 12:00:00 AM EDT tablet 30 TAKE ONE TABLET BY MOUTH AT BEDTIME TAKE ONE TABLET BY MOUTH AT BEDTIME SOLD: 02/12/2021 [facility] Amitriptyline Hydrochloride 150 MG Oral Tablet Amitriptyline HCL 02/10/2021 12:00:00 AM EDT active [facility] ([facility]) sacubitril 49 MG / valsartan 51 MG Oral Tablet [Entresto] ENTRESTO 49-51 MG TABS ENTRESTO 49-51 MG TABS 02/05/2021 12:00:00 AM EDT aborted TAKE ONE TABLET BY MOUTH TWICE A DAY [facility] Covid-19 vaccine, Unspecified 02/05/2021 12:00:00 AM EDT completed [facility] ([facility]) Medication administered onsite 49-51 mg 02/05/2021 12:00:00 AM EDT tablet 20 TAKE ONE TABLET BY MOUTH TWICE A DAY TAKE ONE TABLET BY MOUTH TWICE A DAY SOLD: 06/07/2021 [facility] 49-51 mg 02/05/2021 12:00:00 AM EDT tablet 60 TAKE ONE TABLET BY MOUTH TWICE A DAY TAKE ONE TABLET BY MOUTH TWICE A DAY SOLD: 02/08/2021 [facility] 0.5 mg 01/19/2021 12:00:00 AM EST tablet 30 TAKE ONE TABLET BY MOUTH AT BEDTIME MAXIMUM DAILY DOSE = ONE TABLET TAKE ONE TABLET BY MOUTH AT BEDTIME MAXIMUM DAILY DOSE = ONE TABLET SOLD: 01/20/2021 [facility] buspirone hydrochloride 10 MG Oral Tablet BUSPIRONE HCL 01/18/2021 12:00:00 AM EST tablet 90 TAKE 1/2 TO 1 TA BLET BY MOUTH THREE TIMES A DAY NEEDED FOR ANXIETY TAKE 1/2 TO 1 TABLET BY MOUTH THREE TIMES A DAY NEE DED FOR ANXIETY SOLD: 01/20/2021 [facility] carvedilol 25 MG Oral Tablet CARVEDILOL 01/15/2021 12:00:00 AM EST tab let 60 TAKE TWO TABLETS BY MOUTH TWICE A DAY TAKE TWO TABLETS BY MOUTH TWICE A DAY SOLD: 07/06/2021 [facility] carvedilol 25 MG Oral Tablet CARVEDILOL 01/15/2021 12:00:00 AM EST tab let 120 TAKE TWO TABLETS BY MOUTH TWICE A DAY TAKE TWO TABLETS BY MOUTH TWICE A DAY SOLD: 01/20/2021 [facility] carvedilol 25 MG Oral Tablet CARVEDILOL 01/15/2021 12:00:00 AM EST tab let 60 TAKE TWO TABLETS BY MOUTH TWICE A DAY TAKE TWO TABLETS BY MOUTH TWICE A DAY SOLD: 06/18/2021 [facility] carvedilol 25 MG Oral Tablet CARVEDILOL 01/15/2021 12:00:00 AM EST tab let 120 TAKE TWO TABLETS BY MOUTH TWICE A DAY TAKE TWO TABLETS BY MOUTH TWICE A DAY SOLD: 04/02/2021 [facility] carvedilol 25 MG Oral Tablet CARVEDILOL 01/15/2021 12:00:00 AM EST tab let 120 TAKE TWO TABLETS BY MOUTH TWICE A DAY TAKE TWO TABLETS BY MOUTH TWICE A DAY SOLD: 05/11/2021 [facility] carvedilol 25 MG Oral Tablet CARVEDILOL 01/15/2021 12:00:00 AM EST tab let 60 TAKE TWO TABLETS BY MOUTH TWICE A DAY TAKE TWO TABLETS BY MOUTH TWICE A DAY SOLD: 06/07/2021 [facility] Covid-19 vaccine, Unspecified 01/08/2021 12:00:00 AM EST [facility] Medication administered onsite Amitriptyline Hydrochloride 150 MG Oral Tablet amitriptyline (ELAVIL) 150 MG tablet amitriptyline (ELAVIL) 150 MG tablet 01/06/2021 12:00:00 AM EST active [facility] 0.5 mg 12/21/2020 12:00:00 AM EST tablet 30 TAKE ONE TABLET BY MOUTH AT BEDTIME MAXIMUM DAILY DOSE = ONE TABLET TAKE ONE TABLET BY MOUTH AT BEDTIME MAXIMUM DAILY DOSE = ONE TABLET SOLD: 12/21/2020 [facility] buspirone hydrochloride 10 MG Oral Tablet busPIRone (B USPAR) 10 MG tablet busPIRone (BUSPAR) 10 MG tablet 12/18/2020 12:00:00 AM EST active TAKE 1/2 TO 1 TABLET BY MOUTH THREE TIMES A DAY NEEDED FOR ANXIETY [facility] 60 mg 12/10/2020 12:00:00 AM EST capsule,biphase delayed releas 30 TAKE ONE CAPSULE BY MOUTH EVERY DAY TAKE ONE CAPSULE BY MOUTH EVERY DAY SOLD: 05/19/2021 [facility] 60 mg 12/10/2020 12:00:00 AM EST capsule,biphase delayed releas 30 TAKE ONE CAPSULE BY MOUTH EVERY DAY TAKE ONE CAPSULE BY MOUTH EVERY DAY SOLD: 03/20/2021 [facility] 60 mg 12/10/2020 12:00:00 AM EST capsule,biphase delayed releas 30 TAKE ONE CAPSULE BY MOUTH EVERY DAY TAKE ONE CAPSULE BY MOUTH EVERY DAY SOLD: 04/19/2021 [facility] 60 mg 12/10/2020 12:00:00 AM EST capsule,biphase delayed releas 30 TAKE ONE CAPSULE BY MOUTH EVERY DAY TAKE ONE CAPSULE BY MOUTH EVERY DAY SOLD: 02/12/2021 [facility] 60 mg 12/10/2020 12:00:00 AM EST capsule,biphase delayed releas 30 TAKE ONE CAPSULE BY MOUTH EVERY DAY TAKE ONE CAPSULE BY MOUTH EVERY DAY SOLD: 01/13/2021 [facility] 60 mg 12/10/2020 12:00:00 AM EST capsule,biphase delayed releas 30 TAKE ONE CAPSULE BY MOUTH EVERY DAY TAKE ONE CAPSULE BY MOUTH EVERY DAY SOLD: 12/11/2020 [facility] 24 HR Bupropion Hydrochloride 300 MG Extended Release Oral T ablet BUPROPION HCL 12/09/2020 12:00:00 AM EST tablet extended release 24 hr 90 TAKE ONE TABLET BY MOUTH EVERY DAY TAKE ONE TABLET BY MOUTH EVERY DAY SOLD: 12/11/2020 [facility] 24 HR Bupropion Hydrochloride 300 MG Extended Release Oral Tablet Bupropion Hydrochloride ER (XL) 12/08/2020 12:00:00 AM EST ORAL a ctive [facility] ([facility]) atorvastatin 20 MG Oral Tablet ATORVASTATIN CALCIUM 12/03/2020 1 2:00:00 AM EST tablet 90 TAKE ONE TABLET BY MOUTH EVERY D AY TAKE ONE TABLET BY MOUTH EVERY DAY SOLD: 12/11/2020 [facility] atorvastatin 20 MG Oral Tablet atorvastatin (LIPITOR) 20 MG tablet atorvastatin (LIPITOR) 20 MG tablet 12/03/2020 12:00:00 AM EST active TAKE ONE TABLET BY MOUTH EVERY DAY [facility] Eszopiclone 2 MG Oral Tablet [Lunesta] Lunesta 11/23/2020 12:00:00 A M EST completed [facility] ([facility]) 0.5 mg 11/19/2020 12:00:00 AM EST tablet 30 TAKE ONE TABLET BY MOUTH AT BEDTIME MAXIMUM DAILY DOSE = 1 TAKE ONE TABLET BY MOUTH AT BEDTIME MAXI MUM DAILY DOSE = 1 SOLD: 11/21/2020 [facility] 100 mg 11/18/2020 12:00:00 AM EST tablet 45 TAKE 1 & 1/2 TABLETS BY MOUTH AT BEDTIME TAKE 1 & 1/2 TABLETS BY MOUTH AT BEDTIME SOLD: 11/21/2020 [facility] 100 mg 11/18/2020 12:00:00 AM EST tablet 45 TAKE 1 & 1/2 TABLETS BY MOUTH AT BEDTIME TAKE 1 & 1/2 TABLETS BY MOUTH AT BEDTIME SOLD: 12/21/2020 [facility] 100 mg 11/18/2020 12:00:00 AM EST tablet 45 TAKE 1 & 1/2 TABLETS BY MOUTH AT BEDTIME TAKE 1 & 1/2 TABLETS BY MOUTH AT BEDTIME SOLD: 01/20/2021 [facility] Amitriptyline Hydrochloride 100 MG Oral Tablet Amitriptyline HCL 11/17/2020 12:00:00 AM EST active [facility] ([facility]) buspirone hydrochloride 10 MG Oral Tablet BUSPIRONE HCL 10/23/2020 12:00:00 AM EST tablet 90 TAKE 1/2 TO 1 TA BLET BY MOUTH THREE TIMES A DAY NEEDED FOR ANXIETY TAKE 1/2 TO 1 TABLET BY MOUTH THREE TIMES A DAY NEE DED FOR ANXIETY SOLD: 10/23/2020 [facility] buspirone hydrochloride 10 MG Oral Tablet BUSPIRONE HCL 10/23/2020 12:00:00 AM EST tablet 90 TAKE 1/2 TO 1 TA BLET BY MOUTH THREE TIMES A DAY NEEDED FOR ANXIETY TAKE 1/2 TO 1 TABLET BY MOUTH THREE TIMES A DAY NEE DED FOR ANXIETY SOLD: 12/21/2020 [facility] buspirone hydrochloride 10 MG Oral Tablet Buspirone HCL 10/23/2020 12:00:00 AM EST active [facility] ([facility]) buspirone hydrochloride 10 MG Oral Tablet BUSPIRONE HCL 10/23/2020 12:00:00 AM EST tablet 90 TAKE 1/2 TO 1 TA BLET BY MOUTH THREE TIMES A DAY NEEDED FOR ANXIETY TAKE 1/2 TO 1 TABLET BY MOUTH THREE TIMES A DAY NEE DED FOR ANXIETY SOLD: 11/21/2020 [facility] 0.5 mg 10/21/2020 12:00:00 AM EST tablet 30 TAKE ONE TABLET BY MOUTH AT BEDTIME. MAXIMUM DAILY DOSE = 1 TABLET TAKE ONE TABLET BY MOUTH AT BEDTIME. MAXIMUM DAILY DOSE = 1 TABLET SOLD: 10/21/2020 [facility] 5-325 mg 09/21/2020 12:00:00 AM EST tablet 40 TAKE 1 TABLET BY MOUTH UP TO FOUR TIMES A DAY NEEDED FOR PAIN MAXIMUM DAILY DOSE = 4 TABLETS TAKE 1 TABLET BY MOUTH UP TO FOUR TIMES A DAY NEEDED FOR PAIN MAXIMUM DAILY DOSE = 4 TABLETS SOLD: 09/21/2020 [facility] Acetaminophen 325 MG / Oxycodone Hydrochloride 5 MG Or al Tablet Oxycodone-Acetaminophen 09/21/2020 12:00:00 AM EST ORAL completed [facility] ([facility]) 0.5 mg 09/21/2020 12:00:00 AM EST tablet 30 TAKE ONE TABLET BY MOUTH AT BEDTIME MAXIMUM DAILY DOSE = 1 TABLET TAKE ONE TABLET BY MOUTH AT BEDTIME MAXIMUM DAILY DOSE = 1 TABLET SOLD: 09/21/2020 [facility] NITROFURANTOIN, MACROCRYSTALS 25 MG / Ni trofurantoin, Monohydrate 75 MG Oral Capsule Nitrofurantoin Monohyd Macro 09/17/2020 12:00:00 AM EST ORAL completed [facility] ([facility]) 5-325 mg 09/14/2020 12:00:00 AM EST tablet 12 TAKE ONE TABLET BY MOUTH EVERY 6 HOURS NEEDED FOR PAIN MAXIMUM DAILY DOSE = 4 TABLETS TAKE ONE TABLET BY MOUTH EVERY 6 HOURS NEEDED FOR PAIN MAXIMUM DAILY DOSE = 4 TABLETS SOLD: 09/14/2020 [facility] 24 HR Bupropion Hydrochloride 300 MG Extended Release Oral Tablet [Wellbutrin] Wellbutrin XL 08/21/2020 12:00:00 AM EDT ORAL completed [facility] ([facility]) 24 HR Bupropion Hydrochloride 300 MG Extended Release Oral T ablet BUPROPION HCL 08/21/2020 12:00:00 AM EDT tablet extended release 24 hr 90 TAKE ONE TABLET BY MOUTH EVERY DAY TAKE ONE TABLET BY MOUTH EVERY DAY SOLD: 09/06/2020 [facility] 0.5 mg 08/19/2020 12:00:00 AM EDT tablet 30 TAKE ONE TABLET BY MOUTH AT BEDTIME MAXIMUM DAILY DOSE = 1 TABLET TAKE ONE TABLET BY MOUTH AT BEDTIME MAXIMUM DAILY DOSE = 1 TABLET SOLD: 08/21/2020 [facility] 49-51 mg 07/30/2020 12:00:00 AM EDT tablet 180 TAKE ONE TABLET BY MOUTH TWICE A DAY TAKE ONE TABLET BY MOUTH TWICE A DAY SOLD: 08/11/2020 [facility] 49-51 mg 07/30/2020 12:00:00 AM EDT tablet 180 TAKE ONE TABLET BY MOUTH TWICE A DAY TAKE ONE TABLET BY MOUTH TWICE A DAY SOLD: 11/12/2020 [facility] sacubitril 49 MG / valsartan 51 MG Oral Tablet [Entresto] ENTRESTO 49-51 MG TABS ENTRESTO 49-51 MG TABS 07/30/2020 12:00:00 AM EDT active TAKE ONE TABLET BY MOUTH TWICE A DAY [facility] 0.5 mg 07/24/2020 12:00:00 AM EDT tablet 30 TAKE ONE TABLET BY MOUTH AT BEDTIME MAXIMUM DAILY DOSE = 1 TABLET TAKE ONE TABLET BY MOUTH AT BEDTIME MAXIMUM DAILY DOSE = 1 TABLET SOLD: 07/24/2020 [facility] carvedilol 25 MG Oral Tablet CARVEDILOL 07/23/2020 12:00:00 AM EDT tab let 360 TAKE TWO TABLETS BY MOUTH TWICE A DAY TAKE TWO TABLETS BY MOUTH TWICE A DAY SOLD: 07/24/2020 [facility] carvedilol 25 MG Oral Tablet CARVEDILOL 07/23/2020 12:00:00 AM EDT tab let 360 TAKE TWO TABLETS BY MOUTH TWICE A DAY TAKE TWO TABLETS BY MOUTH TWICE A DAY SOLD: 10/21/2020 [facility] carvedilol 25 MG Oral Tablet carvedilol (COREG) 25 MG tablet carvedilol (COREG) 25 MG tablet 07/22/2020 12:00:00 AM EDT activ e TAKE TWO TABLETS BY MOUTH TWICE A DAY [facility] atorvastatin 20 MG Oral Tablet ATORVASTATIN CALCIUM 06/08/2020 1 2:00:00 AM EDT tablet 90 TAKE ONE TABLET BY MOUTH EVERY D AY TAKE ONE TABLET BY MOUTH EVERY DAY SOLD: 09/06/2020 [facility] Amitriptyline Hydrochloride 150 MG Oral Tablet AMITRIPTYLINE HCL 05/20/2020 12:00:00 AM EDT tablet 30 TAKE ONE TABLET BY MOUTH AT BEDTIME TAKE ONE TABLET BY MOUTH AT BEDTIME SOLD: 01/13/2021 [facility] Amitriptyline Hydrochloride 150 MG Oral Tablet AMITRIPTYLINE HCL 05/20/2020 12:00:00 AM EDT tablet 30 TAKE ONE TABLET BY MOUTH AT BEDTIME TAKE ONE TABLET BY MOUTH AT BEDTIME SOLD: 11/12/2020 [facility] Amitriptyline Hydrochloride 150 MG Oral Tablet AMITRIPTYLINE HCL 05/20/2020 12:00:00 AM EDT tablet 30 TAKE ONE TABLET BY MOUTH AT BEDTIME TAKE ONE TABLET BY MOUTH AT BEDTIME SOLD: 08/11/2020 [facility] Amitriptyline Hydrochloride 150 MG Oral Tablet AMITRIPTYLINE HCL 05/20/2020 12:00:00 AM EDT tablet 30 TAKE ONE TABLET BY MOUTH AT BEDTIME TAKE ONE TABLET BY MOUTH AT BEDTIME SOLD: 09/14/2020 [facility] Amitriptyline Hydrochloride 150 MG Oral Tablet AMITRIPTYLINE HCL 05/20/2020 12:00:00 AM EDT tablet 30 TAKE ONE TABLET BY MOUTH AT BEDTIME TAKE ONE TABLET BY MOUTH AT BEDTIME SOLD: 12/11/2020 [facility] Amitriptyline Hydrochloride 150 MG Oral Tablet AMITRIPTYLINE HCL 05/20/2020 12:00:00 AM EDT tablet 30 TAKE ONE TABLET BY MOUTH AT BEDTIME TAKE ONE TABLET BY MOUTH AT BEDTIME SOLD: 10/13/2020 [facility] Amitriptyline Hydrochloride 150 MG Oral Tablet AMITRIPTYLINE HCL 05/20/2020 12:00:00 AM EDT tablet 30 TAKE ONE TABLET BY MOUTH AT BEDTIME TAKE ONE TABLET BY MOUTH AT BEDTIME SOLD: 07/16/2020 [facility] 60 mg 05/15/2020 12:00:00 AM EDT capsule,biphase delayed releas 30 TAKE ONE CAPSULE BY MOUTH EVERY DAY TAKE ONE CAPSULE BY MOUTH EVERY DAY SOLD: 07/24/2020 [facility] 60 mg 05/15/2020 12:00:00 AM EDT capsule,biphase delayed releas 30 TAKE ONE CAPSULE BY MOUTH EVERY DAY TAKE ONE CAPSULE BY MOUTH EVERY DAY SOLD: 10/13/2020 [facility] 60 mg 05/15/2020 12:00:00 AM EDT capsule,biphase delayed releas 30 TAKE ONE CAPSULE BY MOUTH EVERY DAY TAKE ONE CAPSULE BY MOUTH EVERY DAY SOLD: 09/06/2020 [facility] 60 mg 05/15/2020 12:00:00 AM EDT capsule,biphase delayed releas 30 TAKE ONE CAPSULE BY MOUTH EVERY DAY TAKE ONE CAPSULE BY MOUTH EVERY DAY SOLD: 11/12/2020 [facility] 100 mg 05/02/2020 12:00:00 AM EDT tablet 45 TAKE 1 AND 1/2 TABLET BY MOUTH DAILY AT BEDTIME TAKE 1 AND 1/2 TABLET BY MOUTH DAILY AT BEDTIME SOLD: 10/21/2020 [facility] 100 mg 05/02/2020 12:00:00 AM EDT tablet 45 TAKE 1 AND 1/2 TABLET BY MOUTH DAILY AT BEDTIME TAKE 1 AND 1/2 TABLET BY MOUTH DAILY AT BEDTIME SOLD: 08/21/2020 [facility] 100 mg 05/02/2020 12:00:00 AM EDT tablet 45 TAKE 1 AND 1/2 TABLET BY MOUTH DAILY AT BEDTIME TAKE 1 AND 1/2 TABLET BY MOUTH DAILY AT BEDTIME SOLD: 09/21/2020 [facility] 100 mg 05/02/2020 12:00:00 AM EDT tablet 45 TAKE 1 AND 1/2 TABLET BY MOUTH DAILY AT BEDTIME TAKE 1 AND 1/2 TABLET BY MOUTH DAILY AT BEDTIME SOLD: 07/16/2020 [facility] 100 mg 04/28/2020 12:00:00 AM EDT tablet 60 TAKE ONE TABLET BY MOUTH TWICE A DAY TAKE ONE TABLET BY MOUTH TWICE A DAY SOLD: 10/13/2020 [facility] 100 mg 04/28/2020 12:00:00 AM EDT tablet 60 TAKE ONE TABLET BY MOUTH TWICE A DAY TAKE ONE TABLET BY MOUTH TWICE A DAY SOLD: 08/11/2020 [facility] 100 mg 04/28/2020 12:00:00 AM EDT tablet 60 TAKE ONE TABLET BY MOUTH TWICE A DAY TAKE ONE TABLET BY MOUTH TWICE A DAY SOLD: 09/14/2020 [facility] 100 mg 03/10/2020 12:00:00 AM EDT tablet 90 TAKE ONE TABLET BY MOUTH EVERY DAY TAKE ONE TABLET BY MOUTH EVERY DAY SOLD: 11/12/2020 [facility] 100 mg 03/10/2020 12:00:00 AM EDT tablet 90 TAKE ONE TABLET BY MOUTH EVERY DAY TAKE ONE TABLET BY MOUTH EVERY DAY SOLD: 07/16/2020 [facility] 100 mg 03/10/2020 12:00:00 AM EDT tablet 29 TAKE ONE TABLET BY MOUTH EVERY DAY TAKE ONE TABLET BY MOUTH EVERY DAY SOLD: 02/08/2021 [facility] Amitriptyline Hydrochloride 100 MG Oral Tablet amitriptyline (ELAVIL) 100 MG tablet amitriptyline (ELAVIL) 100 MG tablet 10/11/2019 12:00:00 AM EST 100 mg Oral aborted Take 100 mg by mouth daily [facility] 200 ACTUAT Albuterol 0.09 MG/ACTUAT [facility] red Dose Inhaler [Ventolin] VENTOLIN HFA 108 (90 Base) MCG/ACT inhaler VENTOLIN HFA 108 (90 Base) MCG/ACT inhaler 10/07/2019 12:00:00 AM EST aborted every 4 (four) hours as needed [facility] gabapentin 100 MG Oral Capsule gabapentin (NEURONTIN) 100 MG capsule gabapentin (NEURONTIN) 100 MG capsule 07/17/2019 12:00:00 AM EDT aborted TAKE ONE CAPSULE BY MOUTH THREE TIMES A DAY [facility] Trazodone Hydrochloride 50 MG Oral Tablet trazodone (D ESYREL) 50 MG tablet trazodone (DESYREL) 50 MG tablet 08/14/2016 12:00:00 AM EDT aborted TAKE ONE TABLET BY MOUTH AT BEDTIME NEEDED [facility] Losartan Potassium 100 MG Oral Tablet losartan (COZAAR ) 100 MG tablet losartan (COZAAR) 100 MG tablet 100 mg Oral aborted Take 100 mg by mouth [facility] ferrous sulfate 325 MG Oral Tablet ferrous sulfate 325 (65 FE) MG tablet ferrous sulfate 325 (65 FE) MG tablet 325 mg Oral aborted Take 325 mg by mouth 2 (two) times a week [facility] Insurance Providers Payer name Policy type / Coverage type Policy ID Covered democrat ID Covered democrat's relationship to martinez Policy [place] Plan Information Medicaid [place] Medigap Part B [id number] Self [id number] [facility] [id number] [facility] Part B [id number] Family Dependent [id number] [facility] Part B [id number] Family Dependent [id number] [facility] Part [facility] [id number] Family Dependent [id number] [facility] Part [facility] [id number] Family Dependent [id number] [facility] [id number] Family Dependent [id number] [facility] [id number] Family Dependent [id number] [facility] [id number] Family Dependent [id number] [facility] [id number] Family Dependent [id number] [employer] [place] P[place] 302/307 [id number] SP [id number] BLUE CARD C [id number] Self [id number] [employer] [id number] Cee RWL [id number] [employer] [place] 200/700 [id number] SP [id number] [employer] [place] PPO 302/307 [id number] SP [id number] [employer] [place] 200/700 [id number] SP [id number] BS [place] [employer] [id number] . [id number] Self [id number] BS [facility] [id number] . [id number] Self [id number] BS [facility] [id number] . [id number] Self [id number] [facility] [id number] . [id number] Self [id number] [facility] [id number] . [id number] Self [id number] [facility] [id number] . [id number] Self [id number] [facility] [id number] . [id number] Self [id number] [facility] [id number] Self [id number] [facility] Community Plan Commercial [id number] Self [id number] [facility] Community Plan Commercial [id number] Self [id number] [facility] MEDICAID [id number] Cee [id number] [facility] MEDICAID [id number] xxxxxxxxx [id number] [facility] Community Plan Commercial [id number] Self [id number] [facility] I [id number] Self [id number] [facility] Comm Plan Medicaid F [id number] SELF [id number] [place]ICARE - [place] [id number] S [id number] [place] MEDICARE DIVISION [id number] S [id number] MEDICARE [id number] MEDICARE [id number] Cee [id number] UN COMMUNITY PLAN MCDHMO [id number] SP [id number] [facility] MEDICAID [id number] S [id number] [facility] [id number] S [id number] [facility](MCAID) O [id number] S [id number] UN COMMUNITY PLAN MCDHMO [id number] SP [id number] MEDICAID [id number] SP [id number] [place] Part [place] [id number] Self [id number] [place] [id number] Self [id number] [place] [id number] Self [id number] [place] [id number] Self [id number] [place] [id number] Self [id number] [place] [id number] Self [id number] [place] [id number] Self [id number] [place] [id number] Self [id number] Medicaid Medicaid [id number] Self [id number] Compensation Workers Compensation [id number] Self [id number] [employer] [facility] [id number] Self [id number] [facility] [id number] Family Dependent [id number] [employer] Health Maintenance Organization (HMO) [id number] Self [id number] [employer] PI PI [employer] BC-BS PPO 306 [id number] SP [id number] [employer] B [id number] S [id number] [employer] B [id number] S [id number] BCBS/Blue Card Commercial [id number] Self [id number] BCBS/Blue Card Commercial [id number] Self [id number] [employer] Commercial [id number] Self [facility] [id number] [facility] [id number] UN XIX HMO-O/P [id number] MEDICARE [id number] SP [id number] C16 Problems, Conditions, and Diagnoses Code Display Name Description Problem Type Effective Dates Data Source(s) Y92.[address] in unspeci fied non-institutional (private) residence as the place of occurrence of the external cause UNSP PLACE IN UNSP NON-INSTITUT (PRIVATE) RESIDENC Diagnosis 08/31/2021 05:06:00 PM [facility] l W01.0XXA Fall on same level from slip ping, tripping and stumbling without subsequent striking against object, initial encounter FALL SAME LEV FROM SLIP/TRIP W/O STRIKE AGAINST OB Diagnosis 08/31/2021 05:06:00 PM EDT [facility] Z95.0 Presence of cardiac pacemaker PRESENCE OF CARDIAC PACE MAKER Diagnosis 08/31/2021 05:06:00 PM [facility] Z79.899 Other assisted (current) drug therapy O THER CARD SETTER (CURRENT) DRUG THERAPY Diagnosis 08/31/2021 05:06:00 PM [facility] S20.212A Contusion of left front wall of thorax, initial encounter CONTUSION OF LEFT FRONT WALL OF THORAX, INITIAL EN Diagnosis 08/31/2021 05:06:00 PM [facility] S29.9XXA Unspecified injury of thorax, initial en counter UNSPECIFIED INJURY OF THORAX, INITIAL ENCOUNTER Diagnosis 08/31/2021 05:06:00 PM [facility] E78.5 Hyperlipidemia, unspecified Hyperlipidemia, unspecifie d Diagnosis 07/22/2021 08:19:09 AM EDT [facility] I10 Essential (primary) hypertension Essential (primary) h ypertension Diagnosis 07/22/2021 08:19:09 AM EDT [facility] 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 Chronic combined systolic (congestive) a Diagnosis 07/22/2021 08:19:09 AM EDT [facility] I42.9 Cardiomyopathy, unspecified Cardiomyopathy, unspecifie d Diagnosis 07/22/2021 08:19:09 AM EDT [facility] Z95.810 Presence of automatic (implantable) card iac defibrillator Presence of automatic (implantable) card Diagnosis 07/22/2021 08:19:09 AM EDT [facility] M54.16 Radiculopathy, lumbar region Radiculopathy, lumbar reg ion Diagnosis 10/19/2020 02:10:12 PM [facility] M54.6 Pain in thoracic spine Pain in thoracic spine Diagnosi s 10/19/2020 02:10:12 PM [facility] S22.080S Wedge compression fracture of T11-T12 ve rtebra, sequela Wedge compression fracture of t11-T12 vertebra, sequela Diagnosis 05/2020 02:10:12 PM [facility] M54.5 Low back pain Low back pain Diagnosis 10/19/2020 02:01:40 PM [facility] S32.030G Wedge compression fracture o f third lumbar vertebra, subsequent encounter for fracture with delayed healing Wedge compression fracture of third lumbar vertebra, subsequent encounter for fracture with delayed healing Diagnosis 10/19/2020 02:01:40 PM [facility] [id number] Osteoporosis Osteoporosis Problem 11/23/2020 12:00:00 A M EST [facility] ([facility]) [id number] Closed fracture of lumbar vertebra witho ut spinal cord injury Closed fracture of lumbar vertebra without spinal cord injury Problem 11/23/2020 12:00:00 AM EST [facility] ([facility]) [id number] Automatic implantable cardiac defibrilla tor in situ Automatic implantable cardiac defibrillator in situ Problem 11/23/2020 12:00:0 0 AM EST [facility] ([facility]) [id number] Combined systolic and diastolic dysfunct ion Combined systolic and diastolic dysfunction Problem 11/23/2020 12:00:00 AM EST [facility] ([facility]) [id number] Obstructive sleep apnea syndrome Obstructive sle ep apnea syndrome Problem 11/23/2020 12:00:00 AM EST [facility] ([facility] [id number] Gastroesophageal reflux disease Gastroesophageal reflux disease Problem 11/23/2020 12:00:00 AM EST [facility] ([facility]) [id number] Recurrent major depressive episodes Recu rrent major depressive episodes Problem 11/23/2020 12:00:00 AM EST [facility] ([facility]) [id number] Anxiety state Anxiety state Problem 11/23/2020 12:00:00 AM EST [facility] ([facility]) [id number] Pure hypercholesterolemia Pure hypercholesterolemia Pr oblem 11/23/2020 12:00:00 AM EST [facility] ([facility]) [id number] Essential hypertension Essential hypertension Problem 11/23/2020 12:00:00 AM EST [facility] ([facility]) Surgeries/Procedures Procedure Description Date Indications Data Source(s) OFFICE OUTPATIENT VISIT 25 MINUTES 08/27/2021 12:00:00 AM EDT [facility] ([facility]) Mammogram 06/02/2021 12:00:00 AM EDT M [facility] ([facility]) Bone Mineral Density Test 06/02/2021 12:00:00 AM EDT [facility] ([facility]) OFFICE OUTPATIENT VISIT 25 MINUTES 05/19/2021 12:00:00 AM EDT [facility] ([facility]) OFFICE OUTPATIENT VISIT 15 MINUTES 02/01/2021 12:00:00 AM EDT [facility] ([facility]) THERAPEUTIC PX 1/> AREAS EACH 15 MIN EXERCISES 12:00:00 AM EDT [facility] ([facility] ) MANUAL THERAPY TQS 1/> REGIONS EACH 15 MINUTES 12:00:00 AM EDT [facility] ([facility] ) Therapeutic Activities Direct, Each 15 Minutes 12:00:00 AM EDT [facility] ([facility] ) Physical Therapy Eval - Mod Complexity 01/07/2021 12:0 0:00 AM EST [facility] ([facility]) RADEX SPINE LUMBOSACRAL MINIMUM 4 VIEWS 12/22/2020 12: 00:00 AM EST [facility] ([facility]) OFFICE OUTPATIENT VISIT 25 MINUTES 11/23/2020 12:00:00 AM EST [facility] ([facility]) Results ID Date Data Source [id number] 08/31/2021 09:14:00 PM EDT [facility] Patient: ANITA ROSE [facility]ation [id number] [place] [address] [phone], FRegistration Date/Time: 08/31/2021 15:53 Weight:80.7 kg (S). Height/Length:64 inches (S). BMI:30.6 FAMILY HISTORYNo significant family medical history. (Electronically signed by Wolfgang Dorman MD 08/31/2021 19:33) Name Value Range Interpretation Code Description Data Zaina rce(s) Supporting Document(s) ID Date Data Source [id number] 08/31/2021 07:11:00 PM EDT [facility] DATE OF EXAMINATION: 08/31/2021 17:55 ED T HISTORY: Fall TECHNIQUE: 4 views of the left ribs were obtained. FINDINGS: There is a normal alignment and position of the bones of the thorax. Nofractures are identified. No evidence for pneumothorax is noted. IMPRESSION: Unremarkable rib series. Heart is moderately enlarged. Left-sided pacer deviceis noted. Pulmonary vascularity is within normal limits. Electronically signed in PS360 by: Geovanni Carreno M.D. 08/31/2021 19:06 EDT Name Value Range Interpretation Code Description Data Zaina rce(s) Supporting Document(s) ID Date Data Source [id number] 08/27/2021 11:38:00 AM EDT [facility] ([facility]) Name Value Range Interpretation Code Description Data Zaina rce(s) Supporting Document(s) Vitamin B12 Level 348 pg/mL [facility] ([facility]) VITAMIN B12 NORMAL RANGE NORMAL 247 - 911 PG/ML INDETERMINATE 211 - 246 PG/ML DEFICIENT LESS THAN 211 PG/ML Folate 11.1 ng/mL [facility]) FOLATE NORMAL RANGE NORMAL GREATER THAN 5.4 NG/ML INDETERMINATE 3.4-5.4 NG/ML DEFICIENT LESS THAN 3.4 NG/ML ID Date Data Source [id number] 08/27/2021 11:36:00 AM EDT [facility] ([facility]) Name Value Range Interpretation Code Description Data Zaina rce(s) Supporting Document(s) Calcidiol [Mass/volume] in Serum or Plasma 41.1 ng/mL 24.0-80.0 [facility] ([facility]) This test was performed using [employer] I P Vitamin D immunoassay kit. Values obtained with different assay methods should not be used interchangeably. ID Date Data Source [id number] 08/27/2021 11:35:00 AM EDT [facility] ([facility]) Name Value Range Interpretation Code Description Data Zaina rce(s) Supporting Document(s) Thyrotropin [Units/volume] in Serum or Plasma by Detec tion limit <= 0.05 mIU/L 2.40 uIU/mL 0.36-3.74 [facility] ([facility] ) ID Date Data Source [id number] 08/27/2021 11:35:00 AM EDT [facility] ([facility]) Name Value Range Interpretation Code Description Data Zaina rce(s) Supporting Document(s) Triglyceride [Mass/volume] in Serum or Plasma 72 mg/dL 30-150 [facility] ([facility]) Cholesterol [Mass/volume] in Serum or Plasma 171 mg/dL 131-200 [facility] ([facility]) Cholesterol in HDL [Mass/volume] in Serum or Plasma 86 mg/dL 35-60 [facility] ([facility]) Cholesterol in LDL [Mass/volume] in Serum or Plasma by calcu lation 71 CALC 50-159 [facility] ([facility]) ID Date Data Source [id number] 08/27/2021 11:35:00 AM EDT [facility] ([facility]) Name Value Range Interpretation Code Description Data Zaina rce(s) Supporting Document(s) Creatinine 1.0 mg/dL 0.6-1.3 [facility] ([facility]) Glucose [Mass/volume] in Serum or Plasma 72 mg/dL 74-99 [facility] ([facility]) 100-125 mg/dL PRE-DIABETES/FASTING >126 mg/dL DIABETES/FASTING Urea nitrogen [Mass/volume] in Serum or Plasma 12 mg/dL 7-18 [facility] ([facility]) Sodium [Moles/volume] in Serum or Plasma 142 meq/L 136-145 [facility] ([facility]) Potassium [Moles/volume] in Serum or Plasma 5.0 meq/L 3.5-5.1 [facility] ([facility]) Chloride [Moles/volume] in Serum or Plasma 107 meq/L 98-107 [facility] ([facility]) Calcium [Mass/volume] in Serum or Plasma 9.2 mg/dL 8.5-10.1 [facility] ([facility]) Carbon dioxide, total [Moles/volume] in Serum or Plasma 29 meq/L 21 -32 [facility] ([facility]) Total Bilirubin 0.3 mg/dL 0.2-1.0 [facility] Aspartate aminotransferase [Enzymatic activity/volume] in Serum or Plasma 19 U/L 15-37 [facility] ([facility] ) Alkaline phosphatase isoenzyme [Units/volume] in Serum or Pl asma 105 mg/dL 46-116 [facility] ([facility]) Alanine aminotransferase [Enzymatic activity/volume] in Seru m or Plasma 23 U/L 12-78 [facility] ([facility]) Albumin [Mass/volume] in Serum or Plasma 3.6 g/dL 3.4-5.0 [facility] Glomerular filtration rate/1.73 sq M pre dicted among non-blacks [Volume Rate/Area] in Serum or Plasma by Creatinine-based formula (MDRD) 56 mL/min [facility] ([facility]) Proteinase 3 Ab [Units/volume] in Serum 6.8 g/dL 6.4-8.2 [facility] ([facility]) A/G Ratio 1.13 CALC 1.00-1.90 [facility]) Glomerular filtration rate/1.73 sq M pre dicted among blacks [Volume Rate/Area] in Serum or Plasma by Creatinine-based formula (MDRD) Laboratory test result [facility] ([facility]) <content>CHRONIC KIDNEY DISEASE STAGING PER NKF</content>
<content></content>
<content>STAGE I & II GFR >= 60 NORMAL TO MILDLY DECREASED</content>
<content>STAGE III GFR 30-59 MODERATELY DECREASED</content>
<content>STAGE IV GFR 15-29 SEVERELY DECREASED</content>
<content>STAGE V GFR <15 VERY LITTLE GFR LEFT</content>
<content>ESRD GFR <15 ON DYE BLENDER</content>
<content></content> ID Date Data Source [id number] 08/27/2021 11:35:00 AM EDT [facility] ([facility]) Name Value Range Interpretation Code Description Data Zaina rce(s) Supporting Document(s) Leukocytes [#/volume] in Blood by Automated count 7.4 x10*3/UL 4.1-10 .9 [facility] ([facility]) Hemoglobin [Mass/volume] in Blood 13.2 g/dL 12.0-18.0 [facility] ([facility]) Erythrocytes [#/volume] in Blood by Automated count 5.60 x10*6/UL 4.2 0-6.30 [facility] Hematocrit [Volume Fraction] of Blood by Automated count 40.4 % 3 7.0-51.0 [facility] ([facility]) MCH 23.6 pg 26.0-32.0 [facility]) MCV 72.1 fL 80.0-97.0 [facility]) Erythrocyte distribution width [Ratio] by Automated count 15.2 % 11.6-13.7 [facility] ([facility]) Platelets [#/volume] in Blood by Automated count 490 x10*3/UL 140-440 [facility] ([facility]) NOTE: RESULT VERIFIED. MCHC 32.7 g/dL 31.0-38.0 [facility] MPV 9.0 FL 7.8-11.0 [facility] Lymph % 23.7 % 10.0-58.5 [facility] Mid % 6.5 % 1.7-9.3 [facility] Lymph # 1.7 x10*3/UL 0.6-4.1 [facility] ([facility]) Neut % 69.8 % 37.0-92.0 [facility] Neut # 5.2 x10*3/UL 2.0-7.8 [facility] ([facility]) Mid # 0.5 x10*3/UL 0.1-0.6 [facility] ([facility]) ID Date Data Source [id number] 01/14/2021 01:42:41 PM EST [facility] Name Value Range Interpretation Code Description Data Zaina rce(s) Supporting Document(s) &PDF [facility] CADTQv7fQxYGDfZh81/BMCquGFXgg2MeJTrvNTz2GUwuVFSsG6PocWjbZGsIEKNVExrXRD3VYD4rYa45 jIF N2q6AirLLfA02tmW2nVUBwg65wRCegWT5+BSoabxUxLopYIcGfFOTgZdwIKzZtFKvrArwouXWqIA0AtD O2VZCaV83gRIEoTYAuO5ViKAE5Zjz+Ng1AIXWadLZeCK8EIgrR6R5lasy3Xa6/sE5SpcK0Csop1DZC7n sven5KQDg5gu8W5BPXwaedDmxqPocH+jgfwiiaNk62 XRdBtD8zA6bU0jxtRlpw2W8YsA/7Q+ykSRRFovy3+JlmsbgYi2/+IZbTVLyYtvzJJq3+TaOIA7NDIPOb 0TMyK+uvpmCKLyxk9sAUH0o2Nsk4nW7aO7I/0nk7j7RJ97d7j8zBwIUVtpRvAIpB//L7sx9E/52QusRS yU3hMDqJKVJrKSPE55WM4hRgTdpmAVbbgXOaRTm3Yy BcLj8YwIb5XoODCBQx6TvUuLEgNaSB4aMw0RXp3OgOXjBOLN2E1P1AGRPfhugNH+foMwq+QSz+u4IKk3 HsvGmbRQ2DYOQCJMJ8KL/00iJmL6HYVfQpwPs3ZJRp7zMdhy6nCDaGnyXxLyrQlKiDDNs23/j4qC/2T4 /UWqRWqoY6s6sTYmJ3R/bGdSeowN9ocmwxhzX0cjFO y7YdCWWEiSF9RbPKC0RJkqiHIyUlwwXLUszJHRyr+aUzTTeZVtKi29zFipEwhMvpPEKi8MRCFKEtDeCe Ha9poJuapLawYtxzTIoN3XNbSWoE4MRF6QeR4RM/aizt0ocLvKsmIz3lKzROuZoMU40sPRHo6N8IxHUY /cbEsvsTngDajTFNxqEiOgv9pkugpXBiPvhou5xHK/ I0oSBQsKwBrglgYpIgSC8CVqLsbG6UNUFwz2tVhKFzOnuZKqzEKxY9n9ihenRJTTcXHo52uYlFJ+2TRw IjZ92MF3ufjPQF7hYLdAXrdVmrNT2o375BFio8LlWdqfKyvxYdEE7bRI6EHPidLkZYKCXIzkvsx2tkWl 3R8ktkxhtwqjAeXQ0ij6iaegS+GzO7sxlbSyt59Mds [file] product marketing [file] iqIoiqIoiqIoiqIoiqIoiqIoiqIoiqIoiqIoiqIoiq IoiqIoiqIoiqJ+R/1TwUm1fz9VAR7ml0ZjJRCtNVhrxfHtKnrALfS3XGItr3TkVMcjVN6ITB5sk8AiQG jvZLJgn2CwZVa7ZB3ESDYnYQUoV6VlaENqN1TYAe4SEFy1P8cgUClcTs8EnILeRABrLBxsSR7Yp659XI y3WR7WYRF7FPNvRl4EQRBwEV8AYQEbTJOhHRTQJjTb GZBnWqJdUQVtBDWFUl4UZxBsN6iWUishW8WqKQxwC1tnPkCeIANjQCGWXFwkBLSuJ8zjFmSjVBZwBVME Vz9AMzXhO1M0sNtGeYP9FJG2OH3REnRRVqKmOZw9H1Z7dKEeF1K9zWeTwPS2BC3PFH2HTLTwVA2+PiAv W5BIGZiODAE9AA1IuLTzAZ3LpDFVK1YzrMDxBr3mGC VsdGlwbHk+DxZnG5KGYBQIPXH4VT2NfYRnJA0HtSGJI1JdaIIpNk9tGUvxMoVoSP4wTR1+KN5DLJKOEr KDSeZdQJhgXVfkPMJdPUo9U5K3KRPqD5IKY3D0F1a5e8tbvy7+XA4MDIYvR1DUUOFPRkFbEUpcFBvkLV XaEDx7D3Y5PGHvJ6RZJ7dyT5y7BZ7+PiANCiAgID4+ DQo+Jz8EEI6ry8LzABcaJIVrZS8aee1EHEhwPREeL0NvXETbGMivP1UstUarXD6HZTtnWNhnVG5JWMXu GQN8VT6+TZzdbDPiLV2NAdi/kPScY6knxXNoCOtgrs2u70l/SgOzQY2eFeMMAA9lA4BpjBv9kaTFer4T Q4abUvviCk6+PYbeEKq7KthncW3eyBGflMk9tXC5be 8wNi9uLQykYPzqhU2nkuQ3yD4bUQZoPmH3hzC7rGA8CX8mCk2GOTGsPVroVYB7HkVRJXtyxZ0sWxEqDd 6ghCX9vFcoK2e1cx64Lh5xpbooLOf1LE5qNs4zCq3bWNBnr9ouyHA1CJ7oZly+JLspCLEuUC4tCZK3Au LGNn9WQKV8N2u2xZ8afNV1VE6YYxMoSNBkIDNcOJCc ICAgICAgICAgICAgICAgICAgICAgICAgICAgICAgICAgICAgICAgICAgICAgICAgICAgICAgICAgICAg ICAgICAgICAgICAgICAgICAgICAgICAgICAgICANCiAgICAgICAgICAgICAgICAgICAgICAgICAgICAg ICAgICAgICAgICAgICAgICAgICAgICAgICAgICAgIC AgICAgICAgICAgICAgICAgICAgICAgICAgICAgICAgICAgICAgICANCiAgICAgICAgICAgICAgICAgIC AgICAgICAgICAgICAgICAgICAgICAgICAgICAgICAgICAgICAgICAgICAgICAgICAgICAgICAgICAgIC AgICAgICAgICAgICAgICAgICAgICANCiAgICAgICAg ICAgICAgICAgICAgICAgICAgICAgICAgICAgICAgICAgICAgICAgICAgICAgICAgICAgICAgICAgICAg ICAgICAgICAgICAgICAgICAgICAgICAgICAgICAgICANCiAgICAgICAgICAgICAgICAgICAgICAgICAg ICAgICAgICAgICAgICAgICAgICAgICAgICAgICAgIC AgICAgICAgICAgICAgICAgICAgICAgICAgICAgICAgICAgICAgICAgICANCiAgICAgICAgICAgICAgIC AgICAgICAgICAgICAgICAgICAgICAgICAgICAgICAgICAgICAgICAgICAgICAgICAgICAgICAgICAgIC AgICAgICAgICAgICAgICAgICAgICAgICANCiAgICAg ICAgICAgICAgICAgICAgICAgICAgICAgICAgICAgICAgICAgICAgICAgICAgICAgICAgICAgICAgICAg ICAgICAgICAgICAgICAgICAgICAgICAgICAgICAgICAgICANCiAgICAgICAgICAgICAgICAgICAgICAg ICAgICAgICAgICAgICAgICAgICAgICAgICAgICAgIC AgICAgICAgICAgICAgICAgICAgICAgICAgICAgICAgICAgICAgICAgICAgICANCiAgICAgICAgICAgIC AgICAgICAgICAgICAgICAgICAgICAgICAgICAgICAgICAgICAgICAgICAgICAgICAgICAgICAgICAgIC AgICAgICAgICAgICAgICAgICAgICAgICAgICANCiAg ICAgICAgICAgICAgICAgICAgICAgICAgICAgICAgICAgICAgICAgICAgICAgICAgICAgICAgICAgICAg ICAgICAgICAgICAgICAgICAgICAgICAgICAgICAgICAgICAgICANCjw/jXTkQ1gsfYNsyeZ9M7rhLt8J Ox3ZEP7bd2UmBDOgKRwuuwQpYjtFPhMcKQLlFuhFFo v3DSpkFI7LuDUuK2YnA2AgECzpAV3XOVKbIDJhzZGvBRRmNNNsHbA5ZSPfRJniQN2PhRUkAOqzDFAsNT CsZE3DGJTqP476fjJfIO5NBw9SMrUdFC6fsg8SKNqiXIKvFzvVGar5EStsCB6UqKVgK3BdhQKzm4sSFp YgF0MJETP6IYQeMv3QBZOgUlRhPBQzZYhmIJ7gHZIw AKXTzEvukpL1JT0XIY6srhPrIM8PTvBaWt6dAw1ETuYiZ9UlN2AbWYNxIQQHKUnfLM6GHHIjXEO9YKIz OIFeALYZHpJjP55hCY7LW3Fzt73aGtU3AVIbTfVjENatLN51lVheauImiAFkjHzsWK9CIv5+DQplbmRv IcyKMfprNWNQWdVmFmZSHnMcUEIjBPAkWBZfOqR9Be YoOy7YVLIzTWZrHHDjElZaHLJnBSJfREgvNBVzKWH4ZCT0LZChEYXbMJ1QPxPbLJNzZSy0CQXuVESsPJ Lird9ABKNrTAIbNHT5MtIjBKKaAIEnRYbdXTLuIGFnVOH2RBHiDBRvDI2USfHoUCGzBBRwUTSoRLRlYR Zmwf5JPYDgMDEhGHP8AVJoAZRwHEMkFTnnWFUxVTM2 ImE9DGTkKQGxBC0GKaGjMWAnBUE9AEWmYSPgNJUyxk0QHAJfTPEmFLTbCaYwNREaLLMpETunYNCsULB5 SvH0HBQsTTYwBT9WHjAiEARrPHR3KIOpUWYeFHDehv6BCEMeNZFcMwb3RPYtFNFkCBYxLNlnWWUgGBN1 EBSbQAMaDJGnIJ5EJgHsBGHqCXzqSwVuNODdUXIdbp 1KOHSrJDUjQaynITItRTYvQFYaBLfeZDAoHJP8VHJ3CRQxASVvDW2WIpKgKSDvINCdQnHuDQKwUHUhbp 4YGDUtDVOxGlbbPLSpYHEkZFVpDTi4vhQjbVLlQIl7GN6OI0CpypRcAfAXAx1Yq733JDW1OVJwAh3JA3 poYq4sLTAkCENEXp4RVOj0AAMiFlZbGXKrHtV8QGJv EZOoLBapCDEpUhm2LYGmXQV+RNysZSUtBXWnEUNfYLE5CtUtD8X5BNE0ZgB8QLz3H1Y7Xg3zAZCEPz9+ YEvxoFZhvVlyAXTJAkK9OCTbDDweJWOZAz7P ID Date Data Source [id number] 10/19/2020 05:47:52 PM EST [facility] Name Value Range Interpretation Code Description Data Zaina rce(s) Supporting Document(s) Progress Note [facility] HBZMFk8gKiZMLgPo59/VETotPEYxd9JsMHxmQKi0TOooKMXrO5JkGBN1lS5eWPA6HKtTCaCaNcIrJrA8 lbm [file] R0QxFsYvTtRzxbLFK9TnM0GxbsARH4LH1fXQFYZn9+XNuvsRImrNjsKWBJIuF7WSwgESotOENBHb8Q ID Date Data Source [id number] 10/19/2020 05:47:47 PM [facility] Name Value Range Interpretation Code Description Data Zaina rce(s) Supporting Document(s) Progress Note [facility] NCFZGd5eNuJXNpFq68/HUFkdGXOps4GnHCnrTDd8AWxrZJHlK4AxAMI0uZ8wFML0VMmNCmHyUuZwFxF1 lbm [file] ID Date Data Source [id number] 10/19/2020 04:06:15 PM EST [facility] XR SPINE-ENTIRE THORACIC AND LUMBAR- 2 O R 3 VIEW [id number] RESULTInterpreted by:Bryce Stark MDENTIRE THORACIC AND LUMBAR SPINE SCOLIOSIS 2 OR 3 VIEWSCLINICAL STATEMENT: Scoliosis.TECHNIQUE: Multiple AP and lateral views of the thoracic and lumbar spine were obtained.COMPARISON: 08/28/2019 FINDINGS:There is no significant scoliotic curvature of the spine. Moderate chronic compression deformities are again seen at T11 and T12. Otherwise, normal vertebral body heights and alignment are maintained. Normal intervertebral disc spaces are preserved.IMPRESSION: Since 08/28/2019,Moderate chronic compression deformities at T11 and T12.This document has been electronically signed by Bryce Stark MD on 10/19/2020 4:04 PM Name Value Range Interpretation Code Description Data Zaina rce(s) Supporting Document(s) ID Date Data Source [id number] 09/30/2020 08:49:00 AM EST [facility] ([facility]) Name Value Range Interpretation Code Description Data Zaina rce(s) Supporting Document(s) Urine Color Laboratory test result [facility] T ([facility]) Urine Appearance Laboratory test result [facility] ([facility]) Specific gravity of Urine 1.015 1.005-1.030 [facility] ([facility]) Urine Leukocytes Laboratory test result [facility] ([facility]) Urine PH 5.0 units 5.0-9.0 [facility] ([facility]) Urine Protein Laboratory test result 0-0 [facility] ([facility]) Glucose [Presence] in Urine Laboratory test result [facility] ([facility]) Urine Blood Laboratory test result [facility] ([facility]) Urine Nitrite Laboratory test result [facility] ([facility]) Bilirubin.total [Mass/volume] in Serum or Plasma Laboratory test resu lt [facility] ([facility]) Urine Ketone Laboratory test result [facility]E NT ([facility]) Urine Urobilinogen 0.2 mg/dL 0.2-1.0 [facility] ([facility]) ID Date Data Source [id number] 09/14/2020 04:22:00 PM EST [facility] ([facility]) Name Value Range Interpretation Code Description Data Zaina rce(s) Supporting Document(s) Reflex Urine Culture [facility] <content>FULL REPORT IN LAB NOTES ([facility] a nd [facility]).</content>
<content></content>
<content>ORGANISM 1: ENTEROBACTER AEROGENES</content>
<content></content>
<content>COLONY COUNT >100,000</content>
<content></content>
<content></content>
<content> ORGANISM 1: ENTEROBACTER AEROGENES</content>
<content></content>
<content>ENTEROBACTER AEROGENES: REACTION</content>
<content>TRIMETHOPRIM/SULFAMETHOXAZOLE IV 160mg TMP & 800mg SMXq6h <=20 S</content>
<content> TRIMETHOPRIM/SULFAMETHOXAZOLE PO Bactrim DS Bid <=20 S</content>
<content>GENTAMICIN IV 80mg q8h <=1 S</content>
<content>NITROFURANTOIN PO 100mg BID <=16 S</content>
<content>CEFAZOLIN IV 1gm q8h <=4 R</content>
<content>LEVOFLOXACIN IV 500mg qd <=0.12 S</content>
<content>LEVOFLOXACIN PO 250mg qd <=0.12 S</content>
<content> LEVOFLOXACIN PO 500mg qd <=0.12 S</content>
<content>TOBRAMYCIN IV 80mg q8h <=1 S</content>
<content>CEFTRIAXONE IV 1gm q24h <=1 S</content>
<content>CEFTAZIDIME IV 1gm q8h <=1 S</content>
<content>PIPERACILLIN/TAZOBACTAM IV 2.25 gm q6h 8 S</content>
<content>AZTREONAM IV 1gm q8h <=1 S</content>
<content> ERTAPENEM IV 1gm qd <=0.5 S</content>
<content>MEROPENEM IV 1 gm q8h <=0.25 S</content>
<content>MEROPENEM IV 500 mg q8h <=0.25 S</content>
<content>TIGECYCLINE IV 50mg q12h <=0.5 S</content>
<content>CEFEPIME IV 1 gm q12h <=1 S</content>
<content>CEFEPIME IV 2 gm q12h <=1 S</content>
<content></content> ID Date Data Source [id number] 09/14/2020 04:22:00 PM EST [facility] ([facility]) Name Value Range Interpretation Code Description Data Zaina rce(s) Supporting Document(s) Appearance, Urine RFX Laboratory test result [facility] ([facility]) Color, Urine RFX Laboratory test result [facility] ([facility]) PH,Urine RFX 5.0 units 5.0-9.0 [facility] ([facility]) Specific [place] Ur Auto RFX 1.018 1.002-1.035 [facility] ([facility]) Protein, Urine Auto RFX Laboratory test result [facility] ([facility]) Ketone, Urine Auto RFX Laboratory test result [facility] ([facility]) Urobilinogen, Urine Auto RFX 0.2 mg/dL 0.0-2.0 [facility] ([facility]) Glucose, Urine (Ua) Auto RFX Laboratory test result [facility] ([facility]) Nitrite, Urine Auto RFX Laboratory test result [facility] ([facility]) Bilirubin, Urine Auto RFX Laboratory test result [facility] ([facility]) Leukocyte Esterase Ur Auto RFX Laboratory test result [facility] ([facility]) WBC, Urine Auto RFX 40 /HPF 0-3 [facility] ([facility]) Blood, Urine Blood RFX Laboratory test result [facility] ([facility]) RBC, Urine Auto RFX 5 /HPF 0-3 [facility] ([facility]) Bacteria, Urine Auto RFX Laboratory test result [facility] ([facility]) Squam Epithelial Cell Ur Aurfx 1 /HPF 0-6 [facility] ([facility]) Mucus, Urine RFX Laboratory test result [facility] ([facility]) Amorphous Sediment RFX Laboratory test result [facility] ([facility]) Hyaline Cast, Urine Auto RFX 4 /LPF 0-1 M [facility] ([facility]) ID Date Data Source [id number] 09/14/2020 01:11:00 PM EST [facility] ([facility]) Name Value Range Interpretation Code Description Data Zaina rce(s) Supporting Document(s) Alt/SGPT 17 U/L 12-78 [facility] ([place] [facility]) Ast/Sgot 15 U/L 7-37 [facility] ([facility]) Bilirubin,Total 0.4 mg/dL 0.2-1.0 [facility] ([facility]) Total Protein 6.4 GM/DL 6.4-8.2 [facility] ([facility]) Bilirubin,Direct 0.1 mg/dL 0.0-0.2 [facility] ([facility]) Alkaline Phosphatase 98 U/L 45-117 [facility] ([facility]) Albumin/Globulin Ratio 1.2 1.2-2.2 [facility] ([facility]) Albumin 3.5 GM/DL 3.2-5.2 [facility] ([place] [facility]) ID Date Data Source [id number] 09/14/2020 01:11:00 PM EST [facility] ([facility]) Name Value Range Interpretation Code Description Data Zaina rce(s) Supporting Document(s) aPTT in Blood by Coagulation assay 30.8 s 24.2-38.5 [facility] ([facility]) ID Date Data Source [id number] 09/14/2020 01:11:00 PM EST [facility] ([facility]) Name Value Range Interpretation Code Description Data Zaina rce(s) Supporting Document(s) Prothrombin Time 13.9 s 12.5-14.3 [facility] ([facility]) Inr 1.05 [facility] ([facility]) THERAPUTIC HUMAN INR VALUES INDICATIONS NORMAL RANGES PROPHYLAXIS/TREATMENT OF: VENOUS THROMBOSIS 2.0-3.0 PULMONARY EMBOLISM 2.0-3.0 PREVENTION OF SYSTEMIC EMBOLISM FROM: TISSUE HEART VALVES 2.0-3.0 ACUTE MYOCARDIAL INFARCTION 2.0-3.0 VALVULAR HEART DISEASE 2.0-3.0 ATRIAL FIBRILLATION 2.0-3.0 MECHANICAL VALVES(HIGH RISK) 2.5-3.5 RECURRENT MYOCARDIAL INFARCTION 2.5-3.5 ID Date Data Source [id number] 09/14/2020 01:11:00 PM EST [facility] ([facility]) Name Value Range Interpretation Code Description Data Zaina rce(s) Supporting Document(s) White Blood Count 7.2 10 4.0-10.0 [facility] ([facility]) Red Blood Count 5.17 10 4.00-5.40 [facility] ([facility]) Hemoglobin 11.4 g/dL 12.0-15.5 [facility] Hematocrit 39.0 % 36.0-47.0 [facility] Mean Corpuscular Hemoglobin 22.1 pg 27.0-33.0 [facility] ([facility]) Mean Corpuscular HGB Conc 29.2 g/dL 32.0-36.5 [facility] ([facility]) Mean Corpuscular Volume 75.4 fl 80.0-96.0 [facility] ([facility]) Neutrophils % 64.0 % 36.0-66.0 [facility] ([facility]) Platelet Count, Automated 451 10 150-450 [facility] ([facility]) Red Cell Distribution Width 17.0 % 11.5-14.5 [facility] ([facility]) Eos % 5.1 % 0.0-3.0 [facility]) Lymph % 21.2 % 24.0-44.0 [facility] [facility] [place] % 8.2 % 0.0-5.0 [facility] [facility] Immature Granulocyte % 0.3 % 0-3.0 [facility] ([facility]) Baso % 1.2 % 0.0-1.0 [facility] [facility] Nucleated Red Blood Cell % 0.0 % 0-0 [facility] ([facility]) Lymph # 1.5 10 1.5-5.0 [facility] [facility] Neutrophils # 4.6 10 1.5-8.5 [facility] ([facility]) [place] # 0.6 10 0.0-0.8 [facility] [facility] Baso # 0.1 10 0.0-0.2 [facility] [facility] Eos # 0.4 10 0.0-0.5 [facility] [facility] ID Date Data Source [id number] 09/14/2020 01:11:00 PM EST [facility] ([facility]) Name Value Range Interpretation Code Description Data Zaina rce(s) Supporting Document(s) Laboratory test finding (navigational concept) 37.0 % 38.0-51.0 [facility] ([facility]) Laboratory test finding (navigational concept) 67 mg/dL 70-105 [facility] ([facility]) Laboratory test finding (navigational concept) 141 meq/L 136-145 [facility] ([facility]) Laboratory test finding (navigational concept) 4.8 meq/L 3.5-5.1 [facility] ([facility]) Laboratory test finding (navigational concept) 4.7 mg/dL 4.5-5.3 [facility] ([facility]) Laboratory test finding (navigational concept) 24.0 MM/L 23.0-27.0 [facility] ([facility]) Laboratory test finding (navigational concept) 24 mg/dL 8-26 [facility] ([facility]) Laboratory test finding (navigational concept) 108 meq/L 98-109 [facility] Laboratory test finding (navigational concept) 1.3 mg/dL 0.6-1.3 [facility] Procedure Social History Code Duration Value Status Description Data Source(s ) Alcohol intake 07/22/2021 12:00:00 AM EDT Current drinker of al cohol (finding) completed Current drinker of alcohol (finding) [facility] Alcohol intake 01/14/2021 12:00:00 AM EST Yes completed [facility] Smoking 01/14/2021 12:00:00 AM EST Never smoker completed Never [facility] Alcohol intake 10/19/2020 12:00:00 AM EST Current drinker of al cohol (finding) completed Current drinker of alcohol (finding) [facility] Tobacco use and exposure 10/19/2020 12:00:00 AM EST Never used co mpleted Never used [facility] Smoking 10/19/2020 12:00:00 AM EST Never smoker completed Never [facility] Vital Signs ID Date Data Source [id number] Name Value Range Interpretation Code Description Data Source(s) Diastolic blood pressure 82 mm[Hg] 82 mm[Hg] [facility] ([facility]) Body height 62.75 [in_i] 62.75 [in_i] [facility]) 5'2.75" Heart rate 70 /min 70 /min [facility] ([facility]) Body weight 179.00 [lb_av] 179.00 [lb_av] [facility] ([facility]) Body mass index (BMI) [Ratio] 32.0 kg/m2 32.0 k g/m2 [facility] ([facility]) Systolic blood pressure 130 mm[Hg] 130 mm[Hg] [facility] ([facility]) Systolic blood pressure 108 mm[Hg] 108 mm[Hg] [facility] Diastolic blood pressure 70 mm[Hg] 70 mm[Hg] [facility] Heart rate 78 /min 78 /min [facility] Body height 162.6 cm 162.6 cm [facility] Body weight 82.101 kg 82.101 kg [facility] Body mass index (BMI) [Ratio] 31.07 kg/m2 31.07 kg/m2 [facility] Oxygen saturation in Arterial blood by Pulse oximetry 94 % 94 % [facility] Oxygen saturation in Arterial blood by Pulse oximetry 96 % 96 % [facility] ([facility]) Diastolic blood pressure 92 mm[Hg] 92 mm[Hg] [facility] ([facility]) Body mass index (BMI) [Ratio] 33.6 kg/m2 33.6 k g/m2 [facility] ([facility]) Body height 62.75 [in_i] 62.75 [in_i] [facility] ([facility]) 5'2.75" Systolic blood pressure 148 mm[Hg] 148 mm[Hg] [facility] Heart rate 84 /min 84 /min [facility] Body weight 188.00 [lb_av] 188.00 [lb_av] [facility] ([facility]) Systolic blood pressure 128 mm[Hg] 128 mm[Hg] M [facility] ([facility]) RT Arm Diastolic blood pressure 82 mm[Hg] 82 mm[Hg] [facility] ([facility]) RT Arm Heart rate 76 /min 76 /min [facility] Body height 62.75 [in_i] 62.75 [in_i] [facility] ([facility] 5'2.75" Body weight 187.00 [lb_av] 187.00 [lb_av] [facility] ([facility]) Body mass index (BMI) [Ratio] 33.4 kg/m2 33.4 k g/m2 [facility] ([facility]) Systolic blood pressure 110 mm[Hg] 110 mm[Hg] [facility] Oxygen saturation in Arterial blood by Pulse oximetry 97 % 97 % [facility] Body weight 85.458 kg 85.458 kg [facility] Diastolic blood pressure 60 mm[Hg] 60 mm[Hg] [facility] Body mass index (BMI) [Ratio] 32.34 kg/m2 32.34 kg/m2 [facility] Heart rate 76 /min 76 /min [facility] Body height 162.6 cm 162.6 cm [facility] Body mass index (BMI) [Ratio] 33.7 kg/m2 33.7 k g/m2 [facility] ([facility]) Body temperature 96.0 [degF] 96.0 [degF] [facility] ([facility]) Body height 62.5 [in_i] 62.5 [in_i] [facility] ([facility] 5'2.50" Body weight 187.00 [lb_av] 187.00 [lb_av] [facility] ([facility]) Systolic blood pressure 86 mm[Hg] 86 mm[Hg] M [facility] ([facility]) Diastolic blood pressure 60 mm[Hg] 60 mm[Hg] [facility] ([facility]) Heart rate 88 /min 88 /min [facility]) Body height 62.75 [in_i] 62.75 [in_i] [facility] ([facility] 5'2.75" Body weight 189.00 [lb_av] 189.00 [lb_av] [facility] ([facility]) with back brace Body mass index (BMI) [Ratio] 33.7 kg/m2 33.7 k g/m2 [facility] ([facility]) Diastolic blood pressure 80 mm[Hg] 80 mm[Hg] [facility] ([facility]) RT Arm Heart rate 96 /min 96 /min [facility] ([facility]) Body weight 191.50 [lb_av] 191.50 [lb_av] [facility] ([facility]) Systolic blood pressure 112 mm[Hg] 112 mm[Hg] M [facility] ([facility]) RT Arm Body height 62.75 [in_i] 62.75 [in_i] [facility] ([facility] 5'2.75" Body mass index (BMI) [Ratio] 34.2 kg/m2 34.2 k g/m2 [facility] ([facility]) Systolic blood pressure 102 mm[Hg] 102 mm[Hg[facility] Diastolic blood pressure 66 mm[Hg] 66 mm[Hg] [facility] ([facility]) Heart rate 74 /min 74 /min [facility] ([facility]) Body height 62.75 [in_i] 62.75 [in_i] [facility] ([facility]) 5'2.75" Body weight 197.00 [lb_av] 197.00 [lb_av] [facility] ([facility]) Oxygen saturation in Arterial blood by Pulse oximetry 98 % 98 % [facility] ([facility]) [facility] Body mass index (BMI) [Ratio] 35.2 kg/m2 35.2 k g/m2 [facility] Systolic blood pressure 90 mm[Hg] 90 mm[Hg] [facility] ([facility]) RT Arm Diastolic blood pressure 60 mm[Hg] 60 mm[Hg] [facility] ([facility]) RT Arm Heart rate 80 /min 80 /min [facility] ([facility]) Body height 62.75 [in_i] 62.75 [in_i] [facility] ([facility]) 5'2.75" Body weight 191.50 [lb_av] 191.50 [lb_av] [facility] ([facility]) Body mass index (BMI) [Ratio] 34.2 kg/m2 34.2 k g/m2 [facility] ([facility]) Systolic blood pressure 92 mm[Hg] 92 mm[Hg] [facility] RT Arm Diastolic blood pressure 58 mm[Hg] 58 mm[Hg] [facility] ([facility]) RT Arm Heart rate 68 /min 68 /min [facility] ([facility]) Body height 62.75 [in_i] 62.75 [in_i] [facility] ([facility]) 5'2.75" Body weight 196.00 [lb_av] 196.00 [lb_av] [facility] ([facility]) Body mass index (BMI) [Ratio] 35.0 kg/m2 35.0 k g/m2 [facility] ([facility]) ID Date Data Source [id number] 10/19/2020 05:47:[address] [facility] Name Value Range Interpretation Code Description Data Source(s) WEIGHT RECORDED 170 lb 170 lb [facility] Body height Measured 62.5 in 62.5 in [facility] Patient Treatment Plan of Care Planned Activity Planned Date Details Description Data Source (s) sacubitril 49 MG / valsartan 51 MG Oral Tablet [Entres to] 07/22/2021 12:00:00 AM EDT [facility] carvedilol 25 MG Oral Tablet 07/20/2021 12:00:00 AM EDT [facility] atorvastatin 20 MG Oral Tablet 06/04/2021 12:00:00 AM EDT [facility] sacubitril 49 MG / valsartan 51 MG Oral Tablet [Entres to] 02/05/2021 12:00:00 AM EDT [facility] Amitriptyline Hydrochloride 150 MG Oral Tablet 01/06/2021 12:00:00 AM EST [facility] buspirone hydrochloride 10 MG Oral Tablet 12/18/2020 12:00:00 AM T [facility] atorvastatin 20 MG Oral Tablet 12/03/2020 12:00:00 AM EST [facility] sacubitril 49 MG / valsartan 51 MG Oral Tablet [Entres to] 07/30/2020 12:00:00 AM EDT [facility] carvedilol 25 MG Oral Tablet 07/22/2020 12:00:00 AM EDT [facility] Amitriptyline Hydrochloride 100 MG Oral Tablet 10/11/2019 12:00:00 AM EST [facility] 200 ACTUAT Albuterol 0.09 MG/ACTUAT Metered Dose Inhal er [Ventolin] 10/07/2019 12:00:00 AM EST [facility] gabapentin 100 MG Oral Capsule 07/17/2019 12:00:00 AM EDT [facility] Trazodone Hydrochloride 50 MG Oral Tablet 08/14/2016 12:00:00 AM ED T [facility] ferrous sulfate 325 MG Oral Tablet [facility] Losartan Potassium 100 MG Oral Tablet [facility]
[2021-09-09 11:11] LABS: RSV AMPLIFICATION NEGATIVE (NEGATIVE)
--- OUTSIDE RECORDS SUMMARY | 2021-09-09 11:28 | CCD ---
Author Author [facility] Organization [facility] Address Unknown Phone Unavailable Care Team Providers Care Pipe And Test Supervisor Name Role Phone Finn, Radha SOCIAL MEDIA SENIOR ASSOCIATE Unavailable Unavailable Finn, Radha SOCIAL MEDIA SENIOR ASSOCIATE Unavailable Unavailable Finn, Radha SOCIAL MEDIA SENIOR ASSOCIATE Unavailable Unavailable Finn, Radha SOCIAL MEDIA SENIOR ASSOCIATE Unavailable Unavailable Fnin, Radha SOCIAL MEDIA SENIOR ASSOCIATE Unavailable Unavailable Finn, Radha SOCIAL MEDIA SENIOR ASSOCIATE Unavailable Unavailable Finn, Radha SOCIAL MEDIA SENIOR ASSOCIATE Unavailable Unavailable Finn, Radha SOCIAL MEDIA SENIOR ASSOCIATE Unavailable Unavailable Finn, Radha SOCIAL MEDIA SENIOR ASSOCIATE Unavailable Unavailable Finn, Radha SOCIAL MEDIA SENIOR ASSOCIATE Unavailable Unavailable Finn, Radha SOCIAL MEDIA SENIOR ASSOCIATE Unavailable Unavailable Finn, Radha SOCIAL MEDIA SENIOR ASSOCIATE Unavailable Unavailable Finn, Radha SOCIAL MEDIA SENIOR ASSOCIATE Unavailable Unavailable Finn, Radha SOCIAL MEDIA SENIOR ASSOCIATE Unavailable Unavailable Finn, Radha SOCIAL MEDIA SENIOR ASSOCIATE Unavailable Unavailable Finn, Radha SOCIAL MEDIA SENIOR ASSOCIATE Unavailable Unavailable Finn, Radha SOCIAL MEDIA SENIOR ASSOCIATE Unavailable Unavailable Finn, Radha SOCIAL MEDIA SENIOR ASSOCIATE Unavailable Unavailable Finn, Radha SOCIAL MEDIA SENIOR ASSOCIATE Unavailable Unavailable Finn, Radha SOCIAL MEDIA SENIOR ASSOCIATE Unavailable Unavailable Finn, Radha SOCIAL MEDIA SENIOR ASSOCIATE Unavailable Unavailable Finn, Radha SOCIAL MEDIA SENIOR ASSOCIATE Unavailable Unavailable Finn, Radha SOCIAL MEDIA SENIOR ASSOCIATE Unavailable Unavailable Finn, Radha SOCIAL MEDIA SENIOR ASSOCIATE Unavailable Unavailable Finn, Radha SOCIAL MEDIA SENIOR ASSOCIATE Unavailable Unavailable Finn, Radha SOCIAL MEDIA SENIOR ASSOCIATE Unavailable Unavailable Finn, Radha SOCIAL MEDIA SENIOR ASSOCIATE Unavailable Unavailable Finn, Radha SOCIAL MEDIA SENIOR ASSOCIATE Unavailable Unavailable Finn, Radha SOCIAL MEDIA SENIOR ASSOCIATE Unavailable Unavailable Finn, Radha SOCIAL MEDIA SENIOR ASSOCIATE Unavailable Unavailable Finn, Radha SOCIAL MEDIA SENIOR ASSOCIATE Unavailable Unavailable Finn, Radha SOCIAL MEDIA SENIOR ASSOCIATE Unavailable Unavailable Finn, Radha SOCIAL MEDIA SENIOR ASSOCIATE Unavailable Unavailable Finn, Radha SOCIAL MEDIA SENIOR ASSOCIATE Unavailable Unavailable Finn, Radha SOCIAL MEDIA SENIOR ASSOCIATE Unavailable Unavailable PICKERAL JR, J PARKER PA-C [...] Sexton, Keyona Gagnon MD Unavailable Unavailable Sexton, eKyona Gagnon MD Unavailable Unavailable Sexton, Keyona Gagnon [...] Sexton, Keyona Gagnon MD Unavailable Unavailable [facility] Unavailable Halie Harvey MD Unavailable Unavailable Halie [...] Unavailable Wes, Halie Saldivar MD Unavailable Unavailable Wse, Halie Saldivar MD Unavailable Unavailable Wes, Halie Saldivar MD Unavailable Unavailable Wes, Halie Saldivar MD Unavailable Unavailable Wes, Halie Saldivar MD Unavailable Unavailable Wes, Halie Saldivar MD Unavailable Unavailable Wes, Halie Saldivar MD Unavailable Unavailable Wes, Halie Saldivar MD Unavailable Unavailable Wes, Halie Saldivar MD Unavailable Unavailable Tomaiuoli, CLEMETNE Ramonita ANP-C Unavailable tomaiuo CLEMENTE Harden Ramonita ANP-C Unavailable tomaiuo TORSTEN HardenE Ramonita ANP-C Unavailable tomaiuo Lannyuorichard CLEMENTE Ramonita ANP-C Unavailable tomaiuo Juliusaiuorichard CLEMENTE Ramonita ANP-C Unavailable tomaiuo Lannyuorichard CLEMENTE Ramonita ANP-C Unavailable tomaiuo Dereck CLEMENTE Armonita ANP-C Unavailable tomaiuo Dereck CLEMENTE Ramonita ANP-C [...] TomaiuoCLEMENTE ramos Ramonita ANP-C Unavailable tomaiuo TomaiuoCLEMENTE ramos Ramonita ANP-C Unavailable tomaiuo Tomaiuorichard CLEMENTE Ramonita ANP-C Unavailable tomaiuo TomaiuoTORSTEN ramosE Ramonita ANP-C Unavailable tomaiuo TomaiCLEMENTE aceevdo Ramonita ANP-C Unavailable tomaiuo TomaiuoTORSTEN ramosE Ramonita [...] Unavailable tomaiuo CLEMENTE Harden ANP-C Unavailable [email or web address] CLEMENTE Harden ANP-C Unavailable [email or web address] Fons, M Kecia SOCIAL MEDIA SENIOR ASSOCIATE Unavailable Unavailable Fons, M Kecia SOCIAL MEDIA SENIOR ASSOCIATE Unavailable Unavailable Fons, M Kecia SOCIAL MEDIA SENIOR ASSOCIATE Unavailable Unavailable Fons, M Kecia SOCIAL MEDIA SENIOR ASSOCIATE Unavailable Unavailable Fons, M Kecia SOCIAL MEDIA SENIOR ASSOCIATE Unavailable Unavailable Fons, M Kecia SOCIAL MEDIA SENIOR ASSOCIATE Unavailable Unavailable Fons, M Kecia SOCIAL MEDIA SENIOR ASSOCIATE Unavailable Unavailable Fons, M Kecia SOCIAL MEDIA SENIOR ASSOCIATE Unavailable Unavailable Fons, M Kecia SOCIAL MEDIA SENIOR ASSOCIATE Unavailable Unavailable Fons, M Kecia SOCIAL MEDIA SENIOR ASSOCIATE Unavailable Unavailable Fons, M Kecia SOCIAL MEDIA SENIOR ASSOCIATE Unavailable Unavailable Fons, M Kecia SOCIAL MEDIA SENIOR ASSOCIATE Unavailable Unavailable Fons, M Kecia SOCIAL MEDIA SENIOR ASSOCIATE Unavailable Unavailable Fons, M Kecia SOCIAL MEDIA SENIOR ASSOCIATE Unavailable Unavailable Fons, M Kecia SOCIAL MEDIA SENIOR ASSOCIATE Unavailable Unavailable Fons, M Kecia SOCIAL MEDIA SENIOR ASSOCIATE Unavailable Unavailable Fons, M Kecia SOCIAL MEDIA SENIOR ASSOCIATE Unavailable Unavailable Fons, M Kecia SOCIAL MEDIA SENIOR ASSOCIATE Unavailable Unavailable Fons, M Kecia SOCIAL MEDIA SENIOR ASSOCIATE Unavailable Unavailable Fons, M Kecia SOCIAL MEDIA SENIOR ASSOCIATE Unavailable Unavailable Fons, M Kecia SOCIAL MEDIA SENIOR ASSOCIATE Unavailable Unavailable Fons, M Kecia SOCIAL MEDIA SENIOR ASSOCIATE Unavailable Unavailable Fons, M Kecia SOCIAL MEDIA SENIOR ASSOCIATE Unavailable Unavailable Fons, M Kecia SOCIAL MEDIA SENIOR ASSOCIATE Unavailable Unavailable Fons, M Kecia SOCIAL MEDIA SENIOR ASSOCIATE Unavailable Unavailable Fons, M Kecia SOCIAL MEDIA SENIOR ASSOCIATE Unavailable Unavailable Fons, M Kecia SOCIAL MEDIA SENIOR ASSOCIATE Unavailable Unavailable Fons, M Kecia SOCIAL MEDIA SENIOR ASSOCIATE Unavailable Unavailable Fons, M Kecia SOCIAL MEDIA SENIOR ASSOCIATE Unavailable Unavailable Fons, M Kecia SOCIAL MEDIA SENIOR ASSOCIATE Unavailable Unavailable Fons, M Kecia SOCIAL MEDIA SENIOR ASSOCIATE Unavailable Unavailable Fons, M Kecia SOCIAL MEDIA SENIOR ASSOCIATE Unavailable Unavailable Fons, M Kecia SOCIAL MEDIA SENIOR ASSOCIATE Unavailable Unavailable Fons, M Kecia SOCIAL MEDIA SENIOR ASSOCIATE Unavailable Unavailable Fons, M Kecia SOCIAL MEDIA SENIOR ASSOCIATE Unavailable Unavailable Fons, M Kecia SOCIAL MEDIA SENIOR ASSOCIATE Unavailable Unavailable Fons, M Kecia SOCIAL MEDIA SENIOR ASSOCIATE Unavailable Unavailable Fons, M Kecia SOCIAL MEDIA SENIOR ASSOCIATE Unavailable Unavailable Fons, M Kecia SOCIAL MEDIA SENIOR ASSOCIATE Unavailable Unavailable Fons, M Kecia SOCIAL MEDIA SENIOR ASSOCIATE Unavailable Unavailable Fons, M Kecia SOCIAL MEDIA SENIOR ASSOCIATE Unavailable Unavailable Fons, M Kecia SOCIAL MEDIA SENIOR ASSOCIATE Unavailable Unavailable Fons, M Kecia SOCIAL MEDIA SENIOR ASSOCIATE Unavailable Unavailable Fons, M Kecia SOCIAL MEDIA SENIOR ASSOCIATE Unavailable Unavailable Fons, M Kecia SOCIAL MEDIA SENIOR ASSOCIATE Unavailable Unavailable Fons, M Kecia SOCIAL MEDIA SENIOR ASSOCIATE Unavailable Unavailable Fons, M Kecia SOCIAL MEDIA SENIOR ASSOCIATE Unavailable Unavailable Fons, M Kecia SOCIAL MEDIA SENIOR ASSOCIATE Unavailable Unavailable Fons, M Kecia SOCIAL MEDIA SENIOR ASSOCIATE Unavailable Unavailable Fons, M Kecia SOCIAL MEDIA SENIOR ASSOCIATE Unavailable Unavailable Fons, M Kecia SOCIAL MEDIA SENIOR ASSOCIATE Unavailable Unavailable FonHalie altman SOCIAL MEDIA SENIOR ASSOCIATE Unavailable Unavailable FonHalie altman SOCIAL MEDIA SENIOR ASSOCIATE Unavailable Unavailable Re-disclosure Warning The records that [...] is protected by Article 27-F of the [facility] Public Health law. If you continue you may have access to information: Regarding HIV / AIDS; Provided by facilities licensed or operated by the [facility] Office of Mental Health; or Provided by the [facility] Office for People With Developmental Disabilities. If such information is present, then the following [facility] mandated warning applies: This information has been [...] law may result in a fine or alf sentence or both. A general authorization for the release of medical or other information is NOT sufficient authorization for further disc losure. Advance Directives Directive Description Blood Coordinator Retort Fireman Status Observation Descr iption Data Source(s) Ebola Screening Performed completed Ebol a Screening Performed [facility] ([facility]) Note: Within the last month, have you tr aveled outside of the [place]? -NO Family History Family Member Name Family Member Gender Family Member Status Date o f Status Description Data Source(s) Unknown Male Problem [facility] ([facility]) Encounters Encounter Providers Location Date Indications Data Source(s ) Outpatient HILARIA.PAULIE 09/09/2021 10:25:43 AM EDT [facility] Emergency Attender: Wolfgang Dorman MD 05:06:00 PM EDT - 08/31/2021 07:38:00 PM EDT [facility] Patient discharged. Outpatient Attender: Radha Ordoñez 10:40:00 AM EDT [facility] ([facility] ) Outpatient Referrer: Janna MILLIGANMILEY-SJP.MILEY 08/13 12:00:00 AM EDT [facility] Outpatient SJTravisCT-SJP.SYR 08/25/2021 12:58:15 PM EDT [facility] Outpatient Referrer: Janna MILLIGANCT-SJP.SYR 07/14 03:29:17 PM EDT [facility] Outpatient Attender: Kecia Huggins FNPReferrer: Janna MILLIGANMILEY-SJP.MILEY 07/22/2021 12:00:00 AM EDT - 07/22/2021 09:39:51 AM EDT [facility] Outpatient Attender: PARKER Ordoñez 0 05/19/2021 08:40:00 AM EDT [facility] ([facility] ) Outpatient Referrer: Janna MILLIGANCT-SJP.SYR 04/13 04:12:09 PM EDT [facility] Outpatient Attender: Radha Ordoñez 03:20:00 PM EDT [facility] ([facility] ) Outpatient MILEY-SJP 01/14/2021 01:44:39 PM EST [facility] Outpatient Attender: Kecia MILLIGANMILEY-SJP.MILEY 12:00:00 AM EST - 01/14/2021 09:39:21 AM EST [facility] Outpatient MILEY-JESSICAP.MILEY 01/14/2021 12:00:00 AM EST [facility] Outpatient Attender: Kalin Sexton MD Physical Therapy 12/22/2020 0 2:15:00 PM EST [facility] ([facility] ) Recurring Patient Referrer: Janna Harvey MD 11/24/2020 1 2:02:16 PM EST [facility] Outpatient Attender: Radha Ordoñez 09:00:00 AM EST [facility] ([facility] ) Outpatient Attender: Ramonita DELGADO 11/17/2020 12:00:00 AM EST [facility] Recurring Patient Referrer: Janna Harvey MD 10/23/2020 0 2:32:23 PM EST [facility] Outpatient Attender: Radha Ordoñez 07:20:00 AM EST [facility] ([facility] ) <td ID="encounterTypeDescriptionID0">H A dult Prophy</td><td>Floridalma Solitario [facility]</td><td>[facility]</td><td>10/20/2020</td><td></td>Unknown Attender: Floridalma Solitario RD [facility] 10/20/2020 07:53:00 AM EST - 10/20/2020 08:25:00 AM EST [facility] ([facility]) Unknown [address] [address] 10/20/2020 12:00:00 AM EST eCW1 ([facility]) Outpatient Attender: Ramonita Sorensen rer: Radha ANGUIANO [id number] 10/19/2020 12:00:00 AM EST Wedge compression fracture of third lumbar vertebra, subsequent encounter for fracture with delayed healing [facility] Wedge compression fracture of third lumb ar vertebra, subsequent encounter for fracture with delayed healing Outpatient Referrer: Ramonita DELGADO 10/19 12:00:00 AM EST Wedge compression fracture of t11-T12 vertebra, sequela [facility] Wedge compression fracture of t11-T12 ve rtebra, sequela Outpatient Attender: Ramonita Harden ANP-CReferrer: Sun ANGUIANO 10/14/2020 12:00:00 AM EST [facility] Outpatient SJP.CT-SJP.SYR 10/12/2020 10:58:54 AM EST [facility] Outpatient Attender: PARKER Ordoñez 1 11/30/2019 07:40:00 AM EST [facility] ([facility] ) Outpatient Attender: Radha Ordoñez 12:40:00 PM EST [facility] ([facility] ) Outpatient Attender: Kecia MILLIGANMILEY-SJP.MILEY 0 12:00:00 AM EDT - 09/01/2020 09:28:00 AM EDT [facility] Outpatient Attender: Radha Ordoñez 10:20:00 AM EDT [facility] ([facility] ) Immunizations Vaccine Date Status Description Data Source(s) Influenza, injectable, MDCK, preservative free, jay valent 08/27/2021 11:51:00 AM EDT completed [facility] ([facility]) Influenza, injectable, MDCK, preservative free, jay valent 08/27/2021 11:47:00 AM EDT completed [facility] ([facility]) COVID-19 VACCINE Moderna 02/05/2021 12:00:00 AM EDT completed [facility] Vaccine Series Complete: YESThis Data wa s Submitted to [facility] Via [employer]. COVID-19 VACCINE Moderna 01/08/2021 12:00:00 AM EST completed [facility] Vaccine Series Complete: NOThis Data was Submitted to [facility] Via [employer]. This CVX code allows reporting of a vacc ination when formulation is unknown (for example, when recording a Influenza vaccination when noted on a vaccination card) 08/13/2020 10:22:00 AM EDT completed MEDEN T ([facility]) Medications Medication Brand Name Start Date [...] MOUTH TWO TIMES A DAY SOLD: 07/26/2021 [facility] sacubitril 49 MG / valsartan 51 MG Oral Tablet [Entresto] sacubitril-valsartan (Entresto) 49-51 MG TABS sacubitril-valsartan (Entresto) 49-51 MG TABS 07/22/2021 12:00:00 AM EDT 1 {tbl} Oral active Take 1 tablet by mouth 2 (two) times a day [facility] carvedilol 25 MG Oral Tablet carvedilol (COREG) 25 MG tablet carvedilol (COREG) 25 MG tablet 07/20/2021 12:00:00 AM EDT 50 mg Oral activ e Take 2 tablets (50 mg total) by mouth 2 (two) times a day with meals [facility] carvedilol 25 MG Oral Tablet CARVEDILOL 07/20/2021 12:00:00 AM EDT tab let 360 TAKE TWO TABLETS BY MOUTH TWICE A DAY WITH FOOD TAKE TWO TABLETS BY MOUTH TWICE A DAY WITH FOOD SOLD: 07/22/2021 [facility] 0.5 mg 07/17/2021 12:00:00 AM EDT tablet 30 TAKE ONE TABLET BY MOUTH AT BEDTIME MAXIMUM DAILY DOSE = 1 TAKE ONE TABLET BY MOUTH AT BEDTIME MAXI MUM DAILY DOSE = 1 SOLD: 07/18/2021 [facility] 24 HR Bupropion Hydrochloride 300 [...] TABLET BY MOUTH ONCE DAILY SOLD: 09/06/2021 [facility] 100 mg 06/05/2021 12:00:00 AM EDT tablet 30 TAKE ONE TABLET BY MOUTH EVERY DAY TAKE ONE TABLET BY MOUTH EVERY DAY SOLD: 06/07/2021 [facility] atorvastatin 20 MG Oral Tablet atorvastatin (LIPITOR) 20 MG tablet atorvastatin (LIPITOR) 20 MG tablet 06/04/2021 12:00:00 AM EDT active TAKE ONE TABLET BY MOUTH EVERY DAY [facility] 0.5 mg 05/19/2021 12:00:00 AM EDT tablet [...] BY MOUTH AT BEDTIME SOLD: 05/19/2021 [facility] Amitriptyline Hydrochloride 150 MG Oral Tablet [...] DAILY DOSE = ONE TABLET SOLD: 04/19/2021 [facility] 100 mg 04/08/2021 12:00:00 AM EDT [...] MUM DAILY DOSE = 1 SOLD: 02/17/2021 [facility] Amitriptyline Hydrochloride 150 MG Oral Tablet AMITRIPTYLINE HCL 02/11/2021 12:00:00 AM EDT tablet 30 TAKE ONE TABLET BY MOUTH AT BEDTIME TAKE ONE TABLET BY MOUTH AT BEDTIME SOLD: 04/19/2021 [facility] Amitriptyline Hydrochloride 150 MG Oral Tablet AMITRIPTYLINE HCL 02/11/2021 12:00:00 AM EDT tablet 30 TAKE ONE TABLET BY MOUTH AT BEDTIME TAKE ONE TABLET BY MOUTH AT BEDTIME SOLD: 02/12/2021 [facility] Amitriptyline Hydrochloride 150 MG Oral Tablet Amitriptyline HCL 02/10/2021 12:00:00 AM EDT active M [facility]ENT ([facility]) sacubitril 49 MG / valsartan 51 MG Oral Tablet [Entresto] ENTRESTO 49-51 MG TABS ENTRESTO 49-51 MG TABS 02/05/2021 12:00:00 AM EDT aborted TAKE ONE TABLET BY MOUTH TWICE A DAY [facility] Covid-19 vaccine, Unspecified 02/05/2021 12:00:00 AM EDT completed [facility] ([facility]) Medication administered onsite 49-51 mg 02/05/2021 12:00:00 AM EDT tablet 20 TAKE ONE TABLET BY MOUTH TWICE A DAY TAKE ONE TABLET BY MOUTH TWICE A DAY SOLD: 06/07/2021 [facility] 49-51 mg 02/05/2021 12:00:00 AM EDT [...] DAILY DOSE = ONE TABLET SOLD: 01/20/2021 [facility] buspirone hydrochloride 10 MG Oral Tablet BUSPIRONE HCL 01/18/2021 12:00:00 AM EST tablet 90 TAKE 1/2 TO 1 TA BLET BY MOUTH THREE TIMES A DAY NEEDED FOR ANXIETY TAKE 1/2 TO 1 TABLET BY MOUTH THREE TIMES A DAY NEE DED FOR ANXIETY SOLD: 01/20/2021 [facility] carvedilol 25 MG Oral Tablet CARVEDILOL 01/15/2021 12:00:00 AM EST tab let 60 TAKE TWO TABLETS BY MOUTH TWICE A DAY TAKE TWO TABLETS BY MOUTH TWICE A DAY SOLD: 07/06/2021 [facility] carvedilol 25 MG Oral Tablet CARVEDILOL 01/15/2021 12:00:00 AM EST tab let 120 TAKE TWO TABLETS BY MOUTH TWICE A DAY TAKE TWO TABLETS BY MOUTH TWICE A DAY SOLD: 01/20/2021 [facility] carvedilol 25 MG Oral Tablet CARVEDILOL 01/15/2021 12:00:00 AM EST tab let 60 TAKE TWO TABLETS BY MOUTH TWICE A DAY TAKE TWO TABLETS BY MOUTH TWICE A DAY SOLD: 06/18/2021 [facility] carvedilol 25 MG Oral Tablet CARVEDILOL 01/15/2021 12:00:00 AM EST tab let 120 TAKE TWO TABLETS BY MOUTH TWICE A DAY TAKE TWO TABLETS BY MOUTH TWICE A DAY SOLD: 04/02/2021 [facility] carvedilol 25 MG Oral Tablet CARVEDILOL 01/15/2021 12:00:00 AM EST tab let 120 TAKE TWO TABLETS BY MOUTH TWICE A DAY TAKE TWO TABLETS BY MOUTH TWICE A DAY SOLD: 05/11/2021 [facility] carvedilol 25 MG Oral Tablet CARVEDILOL 01/15/2021 12:00:00 AM EST tab let 60 TAKE TWO TABLETS BY MOUTH TWICE A DAY TAKE TWO TABLETS BY MOUTH TWICE A DAY SOLD: 06/07/2021 [facility] Covid-19 vaccine, Unspecified 01/08/2021 12:00:00 AM EST completed [facility] ([facility]) Medication administered onsite Amitriptyline Hydrochloride 150 MG Oral Tablet amitriptyline (ELAVIL) 150 MG tablet amitriptyline (ELAVIL) 150 MG tablet 01/06/2021 12:00:00 AM EST active [facility] 0.5 mg 12/21/2020 12:00:00 AM EST tablet 30 TAKE ONE TABLET BY MOUTH AT BEDTIME MAXIMUM DAILY DOSE = ONE TABLET TAKE ONE TABLET BY MOUTH AT BEDTIME MAXIMUM DAILY DOSE = ONE TABLET SOLD: 12/21/2020 [facility] buspirone hydrochloride 10 MG Oral Tablet busPIRone (B USPAR) 10 MG tablet busPIRone (BUSPAR) 10 MG tablet 12/18/2020 12:00:00 AM EST active TAKE 1/2 TO 1 TABLET BY MOUTH THREE TIMES A DAY NEEDED FOR ANXIETY [facility] 60 mg 12/10/2020 12:00:00 AM EST capsule,biphase [...] CAPSULE BY MOUTH EVERY DAY SOLD: 01/13/2021 [facility] 60 mg 12/10/2020 12:00:00 AM EST [...] 12:00:00 AM EST ORAL a ctive [facility] ([facility]) atorvastatin 20 MG Oral Tablet ATORVASTATIN CALCIUM 12/03/2020 1 2:00:00 AM EST tablet 90 TAKE ONE TABLET BY MOUTH EVERY D AY TAKE ONE TABLET BY MOUTH EVERY DAY SOLD: 12/11/2020 [facility] atorvastatin 20 MG Oral Tablet atorvastatin (LIPITOR) 20 MG tablet atorvastatin (LIPITOR) 20 MG tablet 12/03/2020 12:00:00 AM EST active TAKE ONE TABLET BY MOUTH EVERY DAY [facility] Eszopiclone 2 MG Oral Tablet [Lunesta] Lunesta 11/23/2020 12:00:00 A M EST completed [facility] ([facility]) 0.5 mg 11/19/2020 12:00:00 AM EST tablet 30 TAKE ONE TABLET BY MOUTH AT BEDTIME MAXIMUM DAILY DOSE = 1 TAKE ONE TABLET BY MOUTH AT BEDTIME MAXI MUM DAILY DOSE = 1 SOLD: 11/21/2020 [facility] 100 mg 11/18/2020 12:00:00 AM [...] 11/17/2020 12:00:00 AM EST active M [facility] ([facility]) buspirone hydrochloride 10 MG Oral Tablet [...] HCL 10/23/2020 12:00:00 AM EST active [facility] ([facility]) buspirone hydrochloride 10 MG Oral Tablet [...] 09/17/2020 12:00:00 AM EST ORAL completed [facility] ([facility]) 5-325 mg 09/14/2020 12:00:00 AM EST [...] 08/21/2020 12:00:00 AM EDT ORAL completed [facility] ([facility]) 24 HR Bupropion Hydrochloride 300 MG [...] ONE TABLET BY MOUTH TWICE A DAY [facility] 0.5 mg 07/24/2020 12:00:00 AM EDT tablet [...] TWO TABLETS BY MOUTH TWICE A DAY [facility] atorvastatin 20 MG Oral Tablet ATORVASTATIN CALCIUM [...] TABLET BY MOUTH EVERY DAY SOLD: 02/08/2021 [facility] Amitriptyline Hydrochloride 100 MG Oral Tablet amitriptyline (ELAVIL) 100 MG tablet amitriptyline (ELAVIL) 100 MG tablet 10/11/2019 12:00:00 AM EST 100 mg Oral aborted Take 100 mg by mouth daily [facility] 200 ACTUAT Albuterol 0.09 MG/ACTUAT [facility] red Dose Inhaler [Ventolin] VENTOLIN HFA 108 (90 Base) MCG/ACT inhaler VENTOLIN HFA 108 (90 Base) MCG/ACT inhaler 10/07/2019 12:00:00 AM EST aborted every 4 (four) hours as needed [facility] gabapentin 100 MG Oral Capsule gabapentin (NEURONTIN) 100 MG capsule gabapentin (NEURONTIN) 100 MG capsule 07/17/2019 12:00:00 AM EDT aborted TAKE ONE CAPSULE BY MOUTH THREE TIMES A DAY [facility] Trazodone Hydrochloride 50 MG Oral Tablet trazodone (D ESYREL) 50 MG tablet trazodone (DESYREL) 50 MG tablet 08/14/2016 12:00:00 AM EDT aborted TAKE ONE TABLET BY MOUTH AT BEDTIME NEEDED [facility] Losartan Potassium 100 MG Oral Tablet losartan (COZAAR ) 100 MG tablet losartan (COZAAR) 100 MG tablet 100 mg Oral aborted Take 100 mg by mouth [facility] ferrous sulfate 325 MG Oral Tablet ferrous sulfate 325 (65 FE) MG tablet ferrous sulfate 325 (65 FE) MG tablet 325 mg Oral aborted Take 325 mg by mouth 2 (two) times a week [facility] Insurance Providers Payer name Policy type / Coverage type Policy ID Covered democrat ID Covered democrat's relationship to martinez Policy Martinez Plan Information Medicaid [place] Medigap Part B [id number] Self [id number] [facility] [id number] 2 [id number] [facility] Part B [id number] Family Dependent [id number] [facility] Part B [id number] Family Dependent [id number] [facility] Part B [id number] Family Dependent [id number] [facility] Part B [id number] Family Dependent [id number] [facility] Part B [id number] Family Dependent [id number] [facility] Part B [id number] Family Dependent [id number] [facility] Part B [id number] Family Dependent [id number] [facility] Part B [id number] Family Dependent [id number] [place] P[place] 302/307 [id number] SP [id number] BLUE CARD C [id number] Self [id number] [place] [employer]BS [id number] Cee RWL [id number] [place] 200/700 [id number] SP [id number] [place] PPO 302/307 [id number] SP [id number] [place] 200/700 [id number] SP [id number] BS [facility] [id number] . [id number] Self [id number] BS [facility] [id number] Self [id number] BS [facility] [id number] . [id number] Self [id number] BS [facility] [id number] . [id number] Self [id number] BS [facility] [id number] Self [id number] BS [facility] [id number] . [id number] Self [id number] BS [facility] [id number] . [id number] Self [id number] [facility] [id number] Self [id number] [facility] Community Plan Commercial [id number] Self [id number] [facility] Community Plan Commercial [id number] Self [id number] [facility] MEDICAID [id number] Cee [id number] [facility] MEDICAID [id number] [facility] Plan Commercial [id number] Self [id number] [facility] I [id number] Self [id number] [facility] Comm Plan Medicaid F [id number] SELF [id number] [place]ICARE - [place] [id number] S [id number] [facility] MEDICARE DIVISION [id number] S [id number] MEDICARE [id number] MEDICARE [id number] Cee [id number] [facility]MERLY [facility] COMMUNITY PLAN MCDHMO [id number] SP [id number] [facility] MEDICAID [id number] S [id number] [facility] [id number] S [id number] [facility](MCAID) O [id number] S [id number] [facility]LY [facility] COMMUNITY PLAN MCDHMO [id number] SP [id number] MEDICAID [id number] SP [id number] Medicaid [place] Medigap Part B [id number] Self [id number] [place] [id number] Self [id number] [place] Med[place] [id number] Self [id number] [place] [id number] Self [id number] [place] [id number] Self [id number] [place] [id number] Self [id number] [place] [id number] Self [id number] [place] [id number] Self [id number] Medicaid Medicaid [id number] Self [id number] Compensation Workers Compensation [id number] Self [id number] [facility] [id number] Self [id number] [facility] [id number] Family Dependent [id number] [employer] BCBS Health Maintenance Organization (HMO) [id number] Self [id number] [employer] BCBS PI PI SH[place] BC-BS PPO 306 [id number] SP [id number] [employer] BCBS B [id number] S RW [id number] [employer] BCBS B [id number] S [facility] [id number] BCBS/Blue Card Commercial [id number] Self [id number] BCBS/Blue Card Commercial [id number] Self [id number] [employer] Commercial [id number] Self [facility] [id number] [facility] [id number] UNHC XIX HMO-O/P [id number] MEDICARE [id number] SP [id number] C16 Problems, Conditions, and Diagnoses Code Display Name Description Problem Type Effective Dates Data Source(s) Y92.[address] in unspeci fied non-institutional (private) residence as the place of occurrence of the external cause UNSP PLACE IN UNSP NON-INSTITUT (PRIVATE) RESIDENC Diagnosis 08/31/2021 05:06:00 PM [facility] l W01.0XXA Fall on same level from slip ping, tripping and stumbling without subsequent striking against object, initial encounter FALL SAME LEV FROM SLIP/TRIP W/O STRIKE AGAINST OB Diagnosis 08/31/2021 05:06:00 PM [facility] Z95.0 Presence of cardiac pacemaker PRESENCE OF CARDIAC PACE MAKER Diagnosis 08/31/2021 05:06:00 PM [facility] Z79.899 Other superintendent terminal (current) drug therapy O THER FPC (CURRENT) DRUG THERAPY Diagnosis 08/31/2021 05:06:00 PM [facility] l S20.212A Contusion of left front wall of thorax, initial encounter CONTUSION OF LEFT FRONT WALL OF THORAX, INITIAL EN Diagnosis 08/31/2021 05:06:00 PM [facility] S29.9XXA Unspecified injury of thorax, initial en counter UNSPECIFIED INJURY OF THORAX, INITIAL ENCOUNTER Diagnosis 08/31/2021 05:06:00 PM [facility] ospital E78.5 Hyperlipidemia, unspecified Hyperlipidemia, unspecifie d Diagnosis 07/22/2021 08:19:09 AM EDT [facility] I10 Essential (primary) hypertension Essential (primary) h ypertension Diagnosis 07/22/2021 08:19:09 AM EDT [facility] 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 M54.6 Pain in thoracic spine Pain in thoracic spine Diagnosi s 10/19/2020 02:10:[address] [facility] S22.080S Wedge compression fracture of T11-T12 ve rtebra, sequela Wedge compression fracture of t11-T12 vertebra, sequela Diagnosis 05/2020 02:10:[address] [facility] M54.5 Low back pain Low back pain Diagnosis 10/19/2020 02:01:[address] [facility] S32.030G Wedge compression fracture o f third lumbar vertebra, subsequent encounter for fracture with delayed healing Wedge compression fracture of third lumbar vertebra, subsequent encounter for fracture with delayed healing Diagnosis 10/19/2020 02:01:[address] [facility] [id number] Osteoporosis Osteoporosis Problem 11/23/2020 12:00:00 A M EST WILVER ([facility]) 61554670 Closed fracture of lumbar vertebra witho ut spinal cord injury Closed fracture of lumbar vertebra without spinal cord injury Problem 11/23/2020 12:00:00 AM ANGELA PETTIT ([facility]) [id number] Automatic implantable cardiac defibrilla tor in situ Automatic implantable cardiac defibrillator in situ Problem 11/23/2020 12:00:0 0 AM EST [facility] ([facility]) [id number] Combined systolic and diastolic dysfunct ion Combined systolic and diastolic dysfunction Problem 11/23/2020 12:00:00 AM EST [facility] ([facility]) 44448130 Obstructive sleep apnea syndrome Obstructive sle ep apnea syndrome Problem 11/23/2020 12:00:00 AM EST [facility] ([facility]) 055389163 Gastroesophageal reflux disease Gastroesophageal reflux disease Problem 11/23/2020 12:00:00 AM EST [facility] ([facility]) [id number] Recurrent major depressive episodes Recu rrent major depressive episodes Problem 11/23/2020 12:00:00 AM EST [facility] ([facility]) 361858976 Anxiety state Anxiety state Problem 11/23/2020 12:00:00 AM EST [facility] ([facility]) 682340571 Pure hypercholesterolemia Pure hypercholesterolemia Pr oblem 11/23/2020 12:00:00 AM EST [facility] ([facility]) 75017647 Essential hypertension Essential hypertension Problem 11/23/2020 12:00:00 AM EST [facility] ([facility]) Surgeries/Procedures Procedure Description Date Indications Data Source(s) OFFICE OUTPATIENT VISIT 25 MINUTES 08/27/2021 12:00:00 AM EDT [facility] ([facility]) Mammogram 06/02/2021 12:00:00 AM EDT M EDENT ([facility]) Bone Mineral Density Test 06/02/2021 12:00:00 AM EDT [facility] ([facility]) OFFICE OUTPATIENT VISIT 25 MINUTES 05/19/2021 12:00:00 AM EDT [facility] ([facility]) OFFICE OUTPATIENT VISIT 15 MINUTES 02/01/2021 12:00:00 AM EDT [facility] ([facility]) THERAPEUTIC PX 1/> AREAS EACH 15 MIN EXERCISES 12:00:00 AM EDT [facility] ([facility] ) MANUAL THERAPY TQS 1/> REGIONS EACH 15 MINUTES 12:00:00 AM EDT [facility] ([facility] ) Therapeutic Activities Direct, Each 15 Minutes 12:00:00 AM EDT [facility] ([facility]) Physical Therapy Eval - Mod Complexity 01/07/2021 12:0 0:00 AM EST [facility] ([facility]) RADEX SPINE LUMBOSACRAL MINIMUM 4 VIEWS 12/22/2020 12: 00:00 AM EST [facility] ([facility]) OFFICE OUTPATIENT VISIT 25 MINUTES 11/23/2020 12:00:00 AM EST [facility] ([facility]) Results ID Date Data Source [id number] 09/09/2021 10:24:53 AM EDT [facility] Name Value Range Interpretation Code Description Data Zaina rce(s) Supporting Document(s) &PDF [facility] FDDKAe4hOpCDNaVj42/FYKuvVNSyf6MgLLlrLFh7SQflOZSyO2MkyVrpNJqFZUBBLuuBFO1OQY8wMGVm waW YvI7hvxMBwzlQWf2Zfu9RacItdacgAZdJaUj9MYaOcOD9zkt3DLSUdRT3daf4SHXJ6GA2XlRf6UESmR7 PtKOPeWNUff1VnUY6HDI2acShmMaV4IO6+FHwwTBT3cbDmvO3UZYDpIX7m4TFG/n7A/QcCBxQpUHtFkR JJIwjgxGmRImlS2/B7eCOw39PfCzzN5GXoD1/9URSl 3YLS334faHzbKyRmAjX3oevAiRitJkZ/q5DOxFYDCqy/2z+IBxmgrTcnQ8XiwnExrE5b6nRqP3rSRDT2 6D8Z/faG5+xn6UVXJCQlldBbFfKRi2XbggdmO7108K50/1Ugwcvksah5Z71s1KwJchptzNNZNcMUZ1yc U2DR8Dj6UI6hIHtSo5EM25/LAFn93T70lurg3hKMQU o3WiM8WS7D5MVRRB4CYFlOMqIp5PwyxD8OfLCzhzd7up/fPWU19Hsabo+KUX6NbjdwPUqAhbpegkvwk3 Tj885cvGx+aPIf5tXiphdvuJVQaWhJ1bqHZGCEVS2GlcbMP2OGxxj/dppCVXNYQB8HfY7hHTKe3wUXlZ FJl6wyq/o/PPgXfmrGJRANArsRfcOrEW0YsvBb/bQK CZZ/+N0Z5YogiqF9GWUV1wQ3GmC6yc5lFgvouxcPkXyqHZObxLQMI0eeBCGL22A4QJ5ZUTpIfgRu [file] AgICAgICAgICAgICAgICAgICAgICAgICAgICAgICAgICAgICAgICAgICAgICAgICAgICAgICAgICAgIC AgICAgICANCiAgICAgICAgICAgICAgICAgICAgICAg ICAgICAgICAgICAgICAgICAgICAgICAgICAgICAgICAgICAgICAgICAgICAgICAgICAgICAgICAgICAg ICAgICAgICAgICAgICAgICANCiAgICAgICAgICAgICAgICAgICAgICAgICAgICAgICAgICAgICAgICAg ICAgICAgICAgICAgICAgICAgICAgICAgICAgICAgIC AgICAgICAgICAgICAgICAgICAgICAgICAgICANCiAgICAgICAgICAgICAgICAgICAgICAgICAgICAgIC AgICAgICAgICAgICAgICAgICAgICAgICAgICAgICAgICAgICAgICAgICAgICAgICAgICAgICAgICAgIC AgICAgICAgICANCiAgICAgICAgICAgICAgICAgICAg ICAgICAgICAgICAgICAgICAgICAgICAgICAgICAgICAgICAgICAgICAgICAgICAgICAgICAgICAgICAg ICAgICAgICAgICAgICAgICAgICANCiAgICAgICAgICAgICAgICAgICAgICAgICAgICAgICAgICAgICAg ICAgICAgICAgICAgICAgICAgICAgICAgICAgICAgIC AgICAgICAgICAgICAgICAgICAgICAgICAgICAgICANCiAgICAgICAgICAgICAgICAgICAgICAgICAgIC AgICAgICAgICAgICAgICAgICAgICAgICAgICAgICAgICAgICAgICAgICAgICAgICAgICAgICAgICAgIC AgICAgICAgICAgICANCiAgICAgICAgICAgICAgICAg ICAgICAgICAgICAgICAgICAgICAgICAgICAgICAgICAgICAgICAgICAgICAgICAgICAgICAgICAgICAg ICAgICAgICAgICAgICAgICAgICAgICANCiAgICAgICAgICAgICAgICAgICAgICAgICAgICAgICAgICAg ICAgICAgICAgICAgICAgICAgICAgICAgICAgICAgIC AgICAgICAgICAgICAgICAgICAgICAgICAgICAgICAgICANCiAgICAgICAgICAgICAgICAgICAgICAgIC AgICAgICAgICAgICAgICAgICAgICAgICAgICAgICAgICAgICAgICAgICAgICAgICAgICAgICAgICAgIC AgICAgICAgICAgICAgICANCjw/gXCeP1gzvETazpK0 T0wwFe7HEo7HLA1st6GrOZTbVVltkcLwJcvSKoFrZROvTylMYyb4BVhdZA1MvABqB3CbI3DoSOrvBO9H HEEsMAWgoJLrGMVtQAWrNdR5CYYgAPafKI8MpLYeIDpjEJOvYNGpDrHhFXUqNR9ACOShB928zpPrYk6V Un9CXcCfZV5hkd8GReOhHSPaLmmHCtg3HXbuIC1YxD BkU3FofLNpg4cSXeWxF1EEXMBbRYKiZf0SVXDoXmIvYYIeZBzqBV7lSJTeECUQgTfzmwS9TJ0WIN9kyj IhOH7VXvPdCs9cGa2DYjSzZ1VfW2HaLUMiNPLRLAzlBG8YKGNwVPP4SYUjXxUuTGIKJnZqK31gAW7ZJ9 Wcy34gLvK6XLSkNvVbNSfjVD86pSpydzNhyQTnnBvx TT5GCh8+CIzxkoMoOxnKXhfeXJIDBfJxXsSYBkYeNQLmHSLbFORmIrN8NtHgFl1KQPWvZACpMOLjQvAs AAWiUWGiLMayGWAcHCP4RGxjZBPxEFZhLY9VGvBiMSXcIlSnWnYrJLYvBEYclt2OFTGbNIFwQJA7CWYl SGFaQHMdHWibQTAjTZZkBTAdGYEhDKOqWV9OJpWlRP RdVEMyLnUlDBOcKFFmbq5RKCYdQUKmVFT9MyXsOREaPYSuCCcoNNUkUUR5DfUpRNYqVEGyRW3KFqYfBY BvYSEyEHNuJMJbKLEahm4VEQHhYLFuAtDtKfLfAZTuYJUcHWngXZOsREW2Wae4MYDvTTItOO6BMfUlER DfTFb3NBDoGOFgVSDhlw2CLBHeIYRwNch0ASFtNCEz RKCsVWliSEYcSOY8EDE5BIHlVHZmPO0VEkVwSGIfDVO6KISmDHRwEKVhyv3VBGXkXYSfHfGrLZKqCLVe QJUyBRrlCZXjKKHtWWMlOBEeATNwOU2BYnObWHMvMIP5RtBaOWNwTJDxpw2CGBLpGZAlVpemAFGaJLAy SUCuFCegWBEwNBJ4NhZmRCTiKZTjGM5MNzFrGWClGO T0IoHpFZReNMQjin5EEVCmBRBgWDXoWYAfYUXrFLZnCTpzJSGeRFM0OZCsVYTpSYBdOF2NAaEhTWEfOT BbQbRsNSMcCYBtyv1FHAXtRFHjJtVtPWHyNAPrDWOmTEryRQVvEGY5GcB7CVGeALRuES2BEyAwXRIhEE phBNJkXUUlPSUofy4EJDOlIEGtKnS4JkKrUTIzFRAr ZDalLLSqGRD4JVAkIZDjKMQvQP2EEgRwCCRyQDi0TCbbAWIjPOGhfx4YXZBbPINcSCH1USVaESUrIEDw MNdeBQUzXQP4Jwv0DSRzAMTuAX9PBvSdHBUzRoRxEvQbOCQeMLZgnq3NdPYjqPhwhz0TDHeNWl7UwCwh LDF3MDugFm9vyPCfDwIcHDWWQq4JvdFgUYAvNGYHPK txMYLkQGZbELCmJmB6VBuoHDNzFrU4QOEuPPQlYJY9WoT3P6AhGyS7TpUkOCZnKPL6H3MtFoY8UOXzHk AlO3G9DKm2QyDiPHX+DJ5hDPj+It0Mx4ErzyA3sqScVWanTGWjFf4UQXWWF5CMAb== ID Date Data Source [id number] 08/31/2021 09:14:00 PM EDT [facility] Patient: ANITA ROSE [facility].VisitID: [id number] [place] [address] [phone], [facility] Date/Time: 08/31/2021 15:53 Weight:80.7 kg (S). Height/Length:64 inches (S). BMI:30.6 FAMILY HISTORYNo significant family medical history. (Electronically signed by Wolfgang Dorman MD 08/31/2021 19:33) Name Value Range Interpretation Code Description Data Zaina rce(s) Supporting Document(s) ID Date Data Source [id number] 08/31/2021 07:11:00 PM EDT [facility] [...] rce(s) Supporting Document(s) ID Date Data Source [id number] 08/27/2021 11:38:00 AM EDT [facility] ([facility]) Name Value Range Interpretation Code Description Data Zaina rce(s) Supporting Document(s) Vitamin B12 Level 348 pg/mL [facility] ([facility]) VITAMIN B12 NORMAL RANGE NORMAL 247 - 911 PG/ML INDETERMINATE 211 - 246 PG/ML DEFICIENT LESS THAN 211 PG/ML Folate 11.1 ng/mL [facility] FOLATE NORMAL RANGE NORMAL GREATER THAN 5.4 NG/ML INDETERMINATE 3.4-5.4 NG/ML DEFICIENT LESS THAN 3.4 NG/ML ID Date Data Source [id number] 08/27/2021 11:36:00 AM EDT [facility] Name Value Range Interpretation Code Description Data Zaina rce(s) Supporting Document(s) Calcidiol [Mass/volume] in Serum or Plasma 41.1 ng/mL 24.0-80.0 [facility] ([facility]) This test was performed using [employer] I P Vitamin D immunoassay kit. Values obtained with different assay methods should not be used interchangeably. ID Date Data Source [id number] 08/27/2021 11:35:00 AM EDT [facility] ([facility]) Name Value Range Interpretation Code Description Data Zaina rce(s) Supporting Document(s) Thyrotropin [Units/volume] in Serum or Plasma by Detec tion limit <= 0.05 mIU/L 2.40 uIU/mL 0.36-3.74 [facility] ([facility] ) ID Date Data Source [id number] 08/27/2021 11:35:00 AM EDT [facility] ([facility]) Name Value Range Interpretation Code Description Data Zaina rce(s) Supporting Document(s) Triglyceride [Mass/volume] in Serum or Plasma 72 mg/dL 30-150 [facility] ([facility]) Cholesterol [Mass/volume] in Serum or Plasma 171 mg/dL 131-200 [facility] ([facility]) Cholesterol in HDL [Mass/volume] in Serum or Plasma 86 mg/dL 35-60 [facility] ([facility]) Cholesterol in LDL [Mass/volume] in Serum or Plasma by calcu lation 71 CALC 50-159 [facility] ([facility]) ID Date Data Source [id number] 08/27/2021 11:35:00 AM ED [facility] Name Value Range Interpretation Code Description Data Zaina rce(s) Supporting Document(s) Creatinine 1.0 mg/dL 0.6-1.3 [facility] ([facility]) Glucose [Mass/volume] in Serum or Plasma 72 mg/dL 74-99 [facility] ([facility]) 100-125 mg/dL PRE-DIABETES/FASTING >126 mg/dL DIABETES/FASTING Urea nitrogen [Mass/volume] in Serum or Plasma 12 mg/dL 7-18 [facility] ([facility]) Sodium [Moles/volume] in Serum or Plasma 142 meq/L 136-145 [facility] ([facility]) Potassium [Moles/volume] in Serum or Plasma 5.0 meq/L 3.5-5.1 [facility] ([facility]) Chloride [Moles/volume] in Serum or Plasma 107 meq/L 98-107 [facility] ([facility]) Calcium [Mass/volume] in Serum or Plasma 9.2 mg/dL 8.5-10.1 [facility] ([facility]) Carbon dioxide, total [Moles/volume] in Serum or Plasma 29 meq/L 21 -32 [facility] ([facility]) Total Bilirubin 0.3 mg/dL 0.2-1.0 [facility] ([facility]) Aspartate aminotransferase [Enzymatic activity/volume] in Serum or Plasma 19 U/L 15-37 [facility] ([facility] ) Alkaline phosphatase isoenzyme [Units/volume] in Serum or Pl asma 105 mg/dL 46-116 [facility] Alanine aminotransferase [Enzymatic activity/volume] in Seru m or Plasma 23 U/L 12-78 [facility] Albumin [Mass/volume] in Serum or Plasma 3.6 g/dL 3.4-5.0 [facility] Glomerular filtration rate/1.73 sq M pre dicted among non-blacks [Volume Rate/Area] in Serum or Plasma by Creatinine-based formula (MDRD) 56 mL/min [facility] Proteinase 3 Ab [Units/volume] in Serum 6.8 g/dL 6.4-8.2 [facility] A/G Ratio 1.13 CALC 1.00-1.90 [facility] Glomerular filtration rate/1.73 sq M pre dicted among blacks [Volume Rate/Area] in Serum or Plasma by Creatinine-based formula (MDRD) Laboratory test result [facility] ([facility]) <content>CHRONIC KIDNEY DISEASE STAGING PER NKF</content>
<content></content>
<content>STAGE I & II GFR >= 60 NORMAL TO MILDLY DECREASED</content>
<content>STAGE III GFR 30-59 MODERATELY DECREASED</content>
<content>STAGE IV GFR 15-29 SEVERELY DECREASED</content>
<content>STAGE V GFR <15 VERY LITTLE GFR LEFT</content>
<content>ESRD GFR <15 ON HOSPITALITY WORKERS</content>
<content></content> ID Date Data Source [id number] 08/27/2021 11:35:00 AM EDT [facility] ([facility] Name Value Range Interpretation Code Description Data Zaina rce(s) Supporting Document(s) Leukocytes [#/volume] in Blood by Automated count 7.4 x10*3/UL 4.1-10 .9 [facility] Hemoglobin [Mass/volume] in Blood 13.2 g/dL 12.0-18.0 [facility] Erythrocytes [#/volume] in Blood by Automated count 5.60 x10*6/UL 4.2 0-6.30 [facility] ([facility]) Hematocrit [Volume Fraction] of Blood by Automated count 40.4 % 3 7.0-51.0 [facility] ([facility]) MCH 23.6 pg 26.0-32.0 [facility] MCV 72.1 fL 80.0-97.0 [facility] Erythrocyte distribution width [Ratio] by Automated count 15.2 % 11.6-13.7 [facility] ([facility]) Platelets [#/volume] in Blood by Automated count 490 x10*3/UL 140-440 [facility] ([facility]) NOTE: RESULT VERIFIED. MCHC 32.7 g/dL 31.0-38.0 [facility]) MPV 9.0 FL 7.8-11.0 [facility] Lymph % 23.7 % 10.0-58.5 [facility] Mid % 6.5 % 1.7-9.3 [facility] Lymph # 1.7 x10*3/UL 0.6-4.1 [facility] ([facility]) Neut % 69.8 % 37.0-92.0 [facility] Neut # 5.2 x10*3/UL 2.0-7.8 [facility] ([facility]) Mid # 0.5 x10*3/UL 0.1-0.6 [facility] ([facility]) ID Date Data Source [id number] 01/14/2021 01:42:41 PM EST [facility] Name Value Range Interpretation Code Description Data Zaina rce(s) Supporting Document(s) &PDF [facility] EARIAu0mDnWANwLg41/TCCsqQSRtf6RiKNxqOBo7JUhzWJYaY1XafCorJPfDRWUHNadOAU6JYE4nDl35 jIF C9x7SrpDTxA33liX7iJEBuw37xZKkjWN5+BWriucHwGscBLwDmJUSuLeaNKwYcCRorUbvsrBHjDP1LaM I7AEPfI51gYFQgURHyD1XyZZW0Ogw+Et0PTKUqwTCqVO5KEcuC3J4lojz9Kp7/oS4FrhC5Viym8EZB4c pcga1OSCw3mo3V6UVIlyxhKmeuHozG+jdtapztVg37 AEmIxF1oQ9eH9rwkTqar3J5KmS/7Q+ykSRRFovy3+JlmsbgYi2/+IZbTVLyYtvzJJq3+JoUAC5IGIRZj 0TMyK+opajDATaaw7qJYZ1e4Fld3bV7cD6Y/5vu8k7NI10e8y9aByUFZybFfUCdP//L7sx9E/52QusRS iK1gIPdXVGNzNKPT95BK3eFlIabmNLryfVYsPDp4Kq MxAt4HbHs7MbAXGRVl0BnSjSRdVsLJ7fVs5QXt9QdHLkNIEK0Z8V1KTEUbnutTK+foMwq+QSz+u4IKk3 FztQstBT0CVGMPEBO2LT/35cChZ2IWNzWutBo1XTOu4fOtsi6pFKpKctUuPhrTlMlTMQo58/j4qC/2T4 /BJuLYbwX4m0xJTcX3D/cDiAtdsB4ekflibxK1boQV i5QuDRBJgRM2SqHBM8TNmqgIRrOfzgNBBpgELBxx+tWyJVbREiPc39mQjbLdoRujCQDq7COFKLDfMeTy Ey7ioBqdzDaxWiqzVFhJ8FVbNAhW2FRH3HtX3XG/gvvm6izYeIswWa1pVqCLpGfVB07zNUNv5J3ShINB /piVcgyZljQwqODDciSqFnf8lfgkeOVpEafzw4gML/ S7dKUYkQdLasnmVsWaIA6VWgPicZ9CCIIav9bEwOIoSfeGXyoXLuT3u3tigzYPXRcPYo77sMqHZ+2TRw HpY15HF7dtlDBZ6yVJuUBkwDgnXS9c671ZLug2MxEcqjNxtiShRG7aBM3YTRimCqURVEFOgcqht2qhBr 8A7khcsczsdnEcBU3op0ilsoY+MkN3yvwzHns77Pvk [file] legal affairs [file] iqIoiqIoiqIoiqIoiqIoiqIoiqIoiqIoiqIoiqIoiq IoiqIoiqIoiqJ+R/0LyAc0tx4GOF9rx3LaOSJkORodekJlXqkBPeO1OTPnv6VwUVjuIP7ULI4yb2AjUM ilNKVrc4UgMSi4RI4RVQFsUJEsX1QygDAyN0BAXz2ILEk1N9uaOAvdJe3HkWUhHESgOCnpCX9Hv188FZ m1ZM4UTPQ9HZRhFm8HMJWiLP1RGTHpHDTuZHZWEaSx DMAvGuJrETKsUGOOCv5BAxDeU7mFExsqH4OsXUcqW7ypDdGtHVByUKUFDVnySWWaK3aeEmAoOVSdOBHL Kw5ZGkHdJ7B7iOqBmJW3GEM5FM5GQkQJUbZaAEm9E1D6yYDrQ2Y6aOqYfCM6JR8CJQ9RSZLrPT8+PiAv E3ONBAbAIFI7UL6IvMMpLG4TzUJPN6JzqFOzQl6bFQ VsdGlwbHk+CoHvW5LALVNNCZL1HK0CpIRgFK8TnJNSU4SkmSSbEr1tEQvkShNvDP6fMU4+UD1NDVKTWk HQGuXnNUzyWGpiTTSoPQk4J5U3PQQrV1MBF6D1O9i7o1dbme3+SR3YBFJoZ0EQRPJZWyHqMFwuPCoqMY ZbVKq5M9E2OCRzA5XRF0trU0z8WI3+PiANCiAgID4+ DQo+Xl8CSI3vy8ImYPsdFZHvPW8zry8NVUvcYQQeS5EvIWGtDEszO6NkkCniDW4ULKrjXQhvKO4VLZAi FDV9RQ5+TJqasIZmJK6KMdx/vNQeT0ozeAVmPEsoqu6u62n/LgEkHO8qWsREMY0iI1CioWx4rxGLou5H J9osOecuGd1+ZLdgNFl1KdizjG2rrFNrfMu3eMY5bv 3xVf6rGVcsWNjylY2ydkH7dR6oUSAeRhT4feA5jFT6NV4uVh5NEEWxILfcSHA3KjXCZEvzbU0lUaCxHm 8kwXS4xUmfE6k9lm78Hq4negzpVIl7QX1tUz2aVq6yQGWig5fhdUT4XO5xNfj+NOxcZNZfEF8nDAN8Ec QFUc4DRCX5B4v4nS6ozFB3TH1PSmTtXXCmODHiIBDo ICAgICAgICAgICAgICAgICAgICAgICAgICAgICAgICAgICAgICAgICAgICAgICAgICAgICAgICAgICAg ICAgICAgICAgICAgICAgICAgICAgICAgICAgICANCiAgICAgICAgICAgICAgICAgICAgICAgICAgICAg ICAgICAgICAgICAgICAgICAgICAgICAgICAgICAgIC AgICAgICAgICAgICAgICAgICAgICAgICAgICAgICAgICAgICAgICANCiAgICAgICAgICAgICAgICAgIC AgICAgICAgICAgICAgICAgICAgICAgICAgICAgICAgICAgICAgICAgICAgICAgICAgICAgICAgICAgIC AgICAgICAgICAgICAgICAgICAgICANCiAgICAgICAg ICAgICAgICAgICAgICAgICAgICAgICAgICAgICAgICAgICAgICAgICAgICAgICAgICAgICAgICAgICAg ICAgICAgICAgICAgICAgICAgICAgICAgICAgICAgICANCiAgICAgICAgICAgICAgICAgICAgICAgICAg ICAgICAgICAgICAgICAgICAgICAgICAgICAgICAgIC AgICAgICAgICAgICAgICAgICAgICAgICAgICAgICAgICAgICAgICAgICANCiAgICAgICAgICAgICAgIC AgICAgICAgICAgICAgICAgICAgICAgICAgICAgICAgICAgICAgICAgICAgICAgICAgICAgICAgICAgIC AgICAgICAgICAgICAgICAgICAgICAgICANCiAgICAg ICAgICAgICAgICAgICAgICAgICAgICAgICAgICAgICAgICAgICAgICAgICAgICAgICAgICAgICAgICAg ICAgICAgICAgICAgICAgICAgICAgICAgICAgICAgICAgICANCiAgICAgICAgICAgICAgICAgICAgICAg ICAgICAgICAgICAgICAgICAgICAgICAgICAgICAgIC AgICAgICAgICAgICAgICAgICAgICAgICAgICAgICAgICAgICAgICAgICAgICANCiAgICAgICAgICAgIC AgICAgICAgICAgICAgICAgICAgICAgICAgICAgICAgICAgICAgICAgICAgICAgICAgICAgICAgICAgIC AgICAgICAgICAgICAgICAgICAgICAgICAgICANCiAg ICAgICAgICAgICAgICAgICAgICAgICAgICAgICAgICAgICAgICAgICAgICAgICAgICAgICAgICAgICAg ICAgICAgICAgICAgICAgICAgICAgICAgICAgICAgICAgICAgICANCjw/eRBtB1wxcZJszqO7A9frCg4U Zs5EVK5tv7XuGZRqNZbcdtInGcgEBrYaOMSxWljJVe u9QUvgVL6YgGQbO3VjZ2YvJGefYP4XTIFkDODlkLHfWLPaTLShZjT1HGMdKSftUC9KkPFnPWkoXJOhIQ ViYL2KVGEwE171bdRyKL9IXf8BFbNhGZ3vzb2NPKbtOASuOfdOSri5ZUobRC1AtJBcE7CaaNRgk9qNSf DoZ1CWCUC2RTGeFk6RUXKaYbPbKUZaSJxrIO6pJIMj ZPPTkRkohaQ2PH5LVC2cnkLmBU2FAjMtEu2tSi5TCyIiT8QgH1MxXZAdZTTTNJeeCY0JLPKuEPJ6LDHe EJXcHCDFAnUyB55wPK3TV1Rhm32lWxM7EKNxZdItFDhjHG32mHlzbzIkmCXquKglMT9ORc6+DQplbmRv IrxQDcyhXZJCBiMrRdFFGoIiHQHfWRGuBOVgPlN7Yp HrEh9AQQSuNQQqXOVdGxSfJSOdNWRhGWflSHGwWOQ5NNB9SJHaHIFqWG5JPbPcZDHhVAn2JRTrNJExZS Ajmu0IWBKtKSHiJFF8XiVbVYRxEZVqSFthTRNiMCNeVIY6NIUvYQVzAX2QSmXcOPFxAWBrLWMbWGRnXV Iocj3RLXUyLFOqSCI4HCWbLQEmWESgCGpeNYVqBYD8 WvH1EYNhRFOtVW0VLlNhBTAeYTO8XPLbLLCrETGcsp7VOSWaVYJyGNRoBpSaFKVpGIWuDJwxJAAnWGU0 IsS0AGXrQCSxOB7NWyLbYUUlBFX8VVDsXLPfRYRraf6UZFEgLFIoWxf7JCOsXZClVLLkUYpqSVNzZRR6 FGBxYUBqMYBiBC2XVjTpYQRiSBkcTnTzFONtCHJaio 1IZSIqKRNxDpakYMZnKTIkPCUlXRmvOTIvPIA7GGY1HXWiDSKeYO1KWhPvFCRnJCBgSnHcQZGeDPUyzw 2GWFNxVHIjUmevCIPhVZJaIHLxASg9qrDiyMKfQKk1GZ3TG6RalnQaZrYWPy4Wd463QLY6OYRtFz0ZI5 krSa7tLBNyMTAVEf5IXDj0CREeDhDbETCaNbJ2ZBHu [id number]+[id number]+ [id number] ID Date Data Source [id number] 10/19/2020 05:47:52 PM [facility] Hospital Name Value Range Interpretation Code Description Data Zaina rce(s) Supporting Document(s) Progress Note [facility] [id number] lbm [file] [id number] ID Date Data Source [id number] 10/19/2020 05:47:47 PM [facility] Name Value Range Interpretation Code Description Data Zaina rce(s) Supporting Document(s) Progress Note [facility] [id number] lbm [file] ID Date Data Source [id number] 10/19/2020 04:06:15 PM [facility] XR SPINE-ENTIRE THORACIC AND LUMBAR- 2 O R 3 VIEW [id number] RESULTInterpreted by:Bryce Stark MDENTIRE THORACIC AND LUMBAR [...] rce(s) Supporting Document(s) ID Date Data Source [id number] 09/30/2020 08:49:00 AM EST [facility] ([facility]) Name Value Range Interpretation Code Description Data Zaina rce(s) Supporting Document(s) Urine Color Laboratory test result MEDEN T ([facility]) Urine Appearance Laboratory test result [facility] Specific gravity of Urine 1.015 1.005-1.030 ME DENT ([facility]) Urine Leukocytes Laboratory test result [facility] Urine PH 5.0 units 5.0-9.0 [facility] Urine Protein Laboratory test result 0-0 [facility] Glucose [Presence] in Urine Laboratory test result [facility] ([facility]) Urine Blood Laboratory test result [facility] Urine Nitrite Laboratory test result [facility] Bilirubin.total [Mass/volume] in Serum or Plasma Laboratory test resu lt [facility] ([facility]) Urine Ketone Laboratory test result [facility]E NT [facility] Urine Urobilinogen 0.2 mg/dL 0.2-1.0 [facility] ([facility]) ID Date Data Source [id number] 09/14/2020 04:22:00 PM EST [facility] ([facility]) Name Value Range Interpretation Code Description Data [facility] rce(s) Supporting Document(s) Reflex Urine Culture Laboratory test result [facility]) <content>FULL REPORT IN LAB NOTES (eCW [...] <=1 S</content>
<content></content> ID Date Data Source [id number] 09/14/2020 04:22:00 PM EST MEDCHRISTINE ([facility]) Name Value Range Interpretation Code Description Data Zaina rce(s) Supporting Document(s) Appearance, Urine RFX Laboratory test result [facility] Color, Urine RFX Laboratory test result [facility]) PH,Urine RFX 5.0 units 5.0-9.0 [facility] ([facility]) Specific [place] Ur Auto RFX 1.018 1.002-1.035 [facility] Protein, Urine Auto RFX Laboratory test result [facility]) Ketone, Urine Auto RFX Laboratory test result [facility]) Urobilinogen, Urine Auto RFX 0.2 mg/dL 0.0-2.0 [facility] Glucose, Urine (Ua) Auto RFX Laboratory test result [facility] Nitrite, Urine Auto RFX Laboratory test result [facility]) Bilirubin, Urine Auto RFX Laboratory test result [facility]) Leukocyte Esterase Ur Auto RFX Laboratory test result [facility]) WBC, Urine Auto RFX 40 /HPF 0-3 [facility] ([facility]) Blood, Urine Blood RFX Laboratory test result [facility] RBC, Urine Auto RFX 5 /HPF 0-3 [facility] Bacteria, Urine Auto RFX Laboratory test result [facility] Squam Epithelial Cell Ur Aurfx 1 /HPF 0-6 [facility] Mucus, Urine RFX Laboratory test result [facility] Amorphous Sediment RFX Laboratory test result [facility] Hyaline Cast, Urine Auto RFX 4 /LPF 0-1 M ED[facility] ([facility] ID Date Data Source [id number] 09/14/2020 01:11:00 PM [facility] Name Value Range Interpretation Code Description Data Zaina rce(s) Supporting Document(s) Alt/SGPT 17 U/L 12-78 [facility] Ast/Sgot 15 U/L 7-37 [facility] ([facility]) Bilirubin,Total 0.4 mg/dL 0.2-1.0 [facility] ([facility]) Total Protein 6.4 GM/DL 6.4-8.2 [facility] ([facility]) Bilirubin,Direct 0.1 mg/dL 0.0-0.2 [facility] ([facility]) Alkaline Phosphatase 98 U/L 45-117 [facility] ([facility]) Albumin/Globulin Ratio 1.2 1.2-2.2 [facility] ([facility]) Albumin 3.5 GM/DL 3.2-5.2 [facility] ([facility]) ID Date Data Source [id number] 09/14/2020 01:11:00 PM EST [facility] ([facility]) Name Value Range Interpretation Code Description Data Zaina rce(s) Supporting Document(s) aPTT in Blood by Coagulation assay 30.8 s 24.2-38.5 [facility] ([facility]) ID Date Data Source [id number] 09/14/2020 01:11:00 PM EST [facility] ([facility]) Name Value Range Interpretation Code Description Data Zaina rce(s) Supporting Document(s) Prothrombin Time 13.9 s 12.5-14.3 [facility] ([facility]) Inr 1.05 [facility] ([facility]) THERAPUTIC HUMAN INR VALUES INDICATIONS NORMAL RANGES PROPHYLAXIS/TREATMENT OF: VENOUS THROMBOSIS 2.0-3.0 PULMONARY EMBOLISM 2.0-3.0 PREVENTION OF SYSTEMIC EMBOLISM FROM: TISSUE HEART VALVES 2.0-3.0 ACUTE MYOCARDIAL INFARCTION 2.0-3.0 VALVULAR HEART DISEASE 2.0-3.0 ATRIAL FIBRILLATION 2.0-3.0 MECHANICAL VALVES(HIGH RISK) 2.5-3.5 RECURRENT MYOCARDIAL INFARCTION 2.5-3.5 ID Date Data Source [id number] 09/14/2020 01:11:00 PM EST [facility] ([facility]) Name Value Range Interpretation Code Description Data Zaina rce(s) Supporting Document(s) White Blood Count 7.2 10 4.0-10.0 [facility] ([facility]) Red Blood Count 5.17 10 4.00-5.40 [facility] ([facility]) Hemoglobin 11.4 g/dL 12.0-15.5 [facility] Hematocrit 39.0 % 36.0-47.0 [facility] Mean Corpuscular Hemoglobin 22.1 pg 27.0-33.0 ME DENT ([facility]) Mean Corpuscular HGB Conc 29.2 g/dL 32.0-36.5 MEDE NT ([facility]) Mean Corpuscular Volume 75.4 fl 80.0-96.0 [facility] ([facility]) Neutrophils % 64.0 % 36.0-66.0 [facility] ([facility]) Platelet Count, Automated 451 10 150-450 MEDE NT ([facility]) Red Cell Distribution Width 17.0 % 11.5-14.5 ME DENT ([facility]) Eos % 5.1 % 0.0-3.0 [facility] Lymph % 21.2 % 24.0-44.0 [facility]) [place] % 8.2 % 0.0-5.0 [facility]) Immature Granulocyte % 0.3 % 0-3.0 [facility] ([facility]) Baso % 1.2 % 0.0-1.0 [facility]) Nucleated Red Blood Cell % 0.0 % 0-0 MED ENT ([facility]) Lymph # 1.5 10 1.5-5.0 [facility]) Neutrophils # 4.6 10 1.5-8.5 [facility] ([facility]) [place] # 0.6 10 0.0-0.8 [facility] Baso # 0.1 10 0.0-0.2 [facility] Eos # 0.4 10 0.0-0.5 [facility]) ID Date Data Source [id number] 09/14/2020 01:11:00 PM EST [facility] ([facility]) Name Value Range Interpretation Code Description Data Zaina rce(s) Supporting Document(s) Laboratory test finding (navigational concept) 37.0 % 38.0-51.0 [facility] ([facility]) Laboratory test finding (navigational concept) 67 mg/dL 70-105 [facility] ([facility]) Laboratory test finding (navigational concept) 141 meq/L 136-145 [facility] ([facility]) Laboratory test finding (navigational concept) 4.8 meq/L 3.5-5.1 [facility] ([facility]) Laboratory test finding (navigational concept) 4.7 mg/dL 4.5-5.3 [facility] ([facility]) Laboratory test finding (navigational concept) 24.0 MM/L 23.0-27.0 [facility] ([facility]) Laboratory test finding (navigational concept) 24 mg/dL 8-26 [facility] ([facility]) Laboratory test finding (navigational concept) 108 meq/L 98-109 [facility] ([facility]) Laboratory test finding (navigational concept) 1.3 mg/dL 0.6-1.3 [facility] ([facility]) Procedure Social History Code Duration Value Status Description Data Source(s ) Alcohol intake 07/22/2021 12:00:00 AM EDT Current drinker of al cohol (finding) completed Current drinker of alcohol (finding) [facility] Alcohol intake 01/14/2021 12:00:00 AM EST Yes completed [facility] Smoking 01/14/2021 12:00:00 AM EST Never smoker completed Never s [facility] Alcohol intake 10/19/2020 12:00:00 AM EST Current drinker of al cohol (finding) completed Current drinker of alcohol (finding) [facility] Tobacco use and exposure 10/19/2020 12:00:00 AM EST Never used co mpleted Never used [facility] Smoking 10/19/2020 12:00:00 AM EST Never smoker completed Never s [facility] Vital Signs ID Date Data Source [id number] Name Value Range Interpretation Code Description Data Source(s) Diastolic blood pressure 82 mm[Hg] 82 mm[Hg] [facility] ([facility]) Body height 62.75 [in_i] 62.75 [in_i] [facility] 5'2.75" Heart rate 70 /min 70 /min [facility] Body weight 179.00 [lb_av] 179.00 [lb_av] MED[facility] T ([facility]) Body mass index (BMI) [Ratio] 32.0 kg/m2 32.0 k g/m2 [facility] ([facility]) Systolic blood pressure 130 mm[Hg] 130 mm[Hg] [facility] ([facility]) Systolic blood pressure 108 mm[Hg] 108 mm[Hg] [facility] Diastolic blood pressure 70 mm[Hg] 70 mm[Hg] [facility] Heart rate 78 /min 78 /min [facility] Body height 162.6 cm 162.6 cm [facility] Body weight 82.101 kg 82.101 kg [facility] Body mass index (BMI) [Ratio] 31.07 kg/m2 31.07 kg/m2 [facility] Oxygen saturation in Arterial blood by Pulse oximetry 94 % 94 % [facility] Diastolic blood pressure 92 mm[Hg] 92 mm[Hg] [facility] ([facility]) Oxygen saturation in Arterial blood by Pulse oximetry 96 % 96 % [facility] ([facility]) Body mass index (BMI) [Ratio] 33.6 kg/m2 33.6 k g/m2 [facility] ([facility]) Body height 62.75 [in_i] 62.75 [in_i] [facility] ([facility] 5'2.75" Systolic blood pressure 148 mm[Hg] 148 mm[Hg] [facility]) Heart rate 84 /min 84 /min [facility] ([facility]) Body weight 188.00 [lb_av] 188.00 [lb_av] [facility] Systolic blood pressure 128 mm[Hg] 128 mm[Hg] M EDENT ([facility]) RT Arm Diastolic blood pressure 82 mm[Hg] 82 mm[Hg] [facility] ([facility]) RT Arm Heart rate 76 /min 76 /min [facility] ([facility]) Body height 62.75 [in_i] 62.75 [in_i] [facility] 5'2.75" Body weight 187.00 [lb_av] 187.00 [lb_av] MED[facility] T ([facility]) Body mass index (BMI) [Ratio] 33.4 kg/m2 33.4 k g/m2 [facility] ([facility]) Systolic blood pressure 110 mm[Hg] 110 mm[Hg] [facility] Diastolic blood pressure 60 mm[Hg] 60 mm[Hg] [facility] Heart rate 76 /min 76 /min [facility] Body height 162.6 cm 162.6 cm [facility] Body weight 85.458 kg 85.458 kg [facility] Body mass index (BMI) [Ratio] 32.34 kg/m2 32.34 kg/m2 [facility] Oxygen saturation in Arterial blood by Pulse oximetry 97 % 97 % [facility] Body temperature 96.0 [degF] 96.0 [degF] [facility] ([facility]) Body height 62.5 [in_i] 62.5 [in_i] [facility] ([facility]) 5'2.50" Body weight 187.00 [lb_av] 187.00 [lb_av] [facility] T ([facility]) Body mass index (BMI) [Ratio] 33.7 kg/m2 33.7 k g/m2 [facility] ([facility]) Systolic blood pressure 86 mm[Hg] 86 mm[Hg] M EDENT ([facility]) Diastolic blood pressure 60 mm[Hg] 60 mm[Hg] [facility] ([facility]) Heart rate 88 /min 88 /min [facility] ([facility] [facility]) Body height 62.75 [in_i] 62.75 [in_i] [facility] 5'2.75" Body weight 189.00 [lb_av] 189.00 [lb_av] MED[facility] T ([facility]) with back brace Body mass index (BMI) [Ratio] 33.7 kg/m2 33.7 k g/m2 [facility] ([facility]) Diastolic blood pressure 80 mm[Hg] 80 mm[Hg] [facility] ([facility]) RT Arm Heart rate 96 /min 96 /min [facility] ([facility]) Body weight 191.50 [lb_av] 191.50 [lb_av] MED[facility] T ([facility]) Systolic blood pressure 112 mm[Hg] 112 mm[Hg] M EDENT ([facility]) RT Arm Body height 62.75 [in_i] 62.75 [in_i] [facility] ([facility] 5'2.75" Body mass index (BMI) [Ratio] 34.2 kg/m2 34.2 k g/m2 [facility] ([facility]) Systolic blood pressure 102 mm[Hg] 102 mm[Hg] M EDENT ([facility]) Diastolic blood pressure 66 mm[Hg] 66 mm[Hg] [facility] ([facility]) Heart rate 74 /min 74 /min [facility] Body height 62.75 [in_i] 62.75 [in_i] [facility] ([facility] 5'2.75" Body weight 197.00 [lb_av] 197.00 [lb_av] MED[facility] T ([facility]) Oxygen saturation in Arterial blood by Pulse oximetry 98 % 98 % [facility] ([facility]) RM Air Body mass index (BMI) [Ratio] 35.2 kg/m2 35.2 k g/m2 [facility] ([facility]) Systolic blood pressure 90 mm[Hg] 90 mm[Hg] M EDENT ([facility]) RT Arm Diastolic blood pressure 60 mm[Hg] 60 mm[Hg] [facility] ([facility]) RT Arm Heart rate 80 /min 80 /min [facility] Body height 62.75 [in_i] 62.75 [in_i] [facility] ([facility]) 5'2.75" Body weight 191.50 [lb_av] 191.50 [lb_av] MED[facility] T ([facility]) Body mass index (BMI) [Ratio] 34.2 kg/m2 34.2 k g/m2 [facility] ([facility]) Systolic blood pressure 92 mm[Hg] 92 mm[Hg] M EDENT ([facility]) RT Arm Diastolic blood pressure 58 mm[Hg] 58 mm[Hg] [facility] ([facility]) RT Arm Heart rate 68 /min 68 /min [facility] ([facility]) Body height 62.75 [in_i] 62.75 [in_i] [facility] ([facility] 5'2.75" Body weight 196.00 [lb_av] 196.00 [lb_av] MED[facility] T ([facility]) Body mass index (BMI) [Ratio] 35.0 kg/m2 35.0 k g/m2 [facility] ([facility]) ID Date Data Source [id number] 10/19/2020 05:47:52 PM [facility] Name Value Range Interpretation Code Description Data Source(s) WEIGHT RECORDED 170 lb 170 lb [facility] Body height Measured 62.5 in 62.5 in [facility] Patient Treatment Plan of Care Planned Activity Planned Date Details Description Data Source (s) sacubitril 49 MG / valsartan 51 MG Oral Tablet [Entres to] 07/22/2021 12:00:00 AM EDT [facility] carvedilol 25 MG Oral Tablet 07/20/2021 12:00:00 AM EDT [facility] atorvastatin 20 MG Oral Tablet 06/04/2021 12:00:00 AM EDT [facility] sacubitril 49 MG / valsartan 51 MG Oral Tablet [Entres to] 02/05/2021 12:00:00 AM EDT [facility] Amitriptyline Hydrochloride 150 MG Oral Tablet 01/06/2021 12:00:00 AM EST [facility] buspirone hydrochloride 10 MG Oral Tablet 12/18/2020 12:00:00 AM T [facility] atorvastatin 20 MG Oral Tablet 12/03/2020 12:00:00 AM EST [facility] sacubitril 49 MG / valsartan 51 MG Oral Tablet [Entres to] 07/30/2020 12:00:00 AM EDT [facility] carvedilol 25 MG Oral Tablet 07/22/2020 12:00:00 AM EDT [facility] Amitriptyline Hydrochloride 100 MG Oral Tablet 10/11/2019 12:00:00 AM EST [facility] 200 ACTUAT Albuterol 0.09 MG/ACTUAT Metered Dose Inhal er [Ventolin] 10/07/2019 12:00:00 AM EST [facility] gabapentin 100 MG Oral Capsule 07/17/2019 12:00:00 AM [facility] Trazodone Hydrochloride 50 MG Oral Tablet 08/14/2016 12:00:00 AM [facility] ferrous sulfate 325 MG Oral Tablet [facility] Losartan Potassium 100 MG Oral Tablet [facility]
[2021-09-09 12:50] VITALS: O2SAT 96
[2021-09-09 15:00] VITALS: BP 127/58
== END 2021-09-09 15:02 | disposition home or self-care (01) ==
LOC: M ED 10:13
DX: R06.02 Shortness of breath (principal); U07.1 COVID-19; I10 Essential (primary) hypertension; E78.5 Hyperlipidemia, unspecified; I25.10 Atherosclerotic heart disease of native coronary artery without angina pectoris; K21.9 Gastro-esophageal reflux disease without esophagitis; F33.9 Major depressive disorder, recurrent, unspecified; Z98.84 Bariatric surgery status; Z79.899 Other long term (current) drug therapy; Z79.82 Long term (current) use of aspirin; Z88.8 Allergy status to other drugs, medicaments and biological substances; Z91.048 Other nonmedicinal substance allergy status

== ENCOUNTER 2021-09-10 07:41 | Outpatient (CLI) | payer MEDICARE, OTHER ==
[~2021-09-10] VITALS: Ht 162.6 cm; Wt 79.0 kg
[~2021-09-10 07:41] MED LIST changes: +ALBUTEROL 90 MCG/ACT 8GM HFA INHALER INH PRN; +ALBUTEROL SULFATE 2.5 MG/0.5 ML INH NEB SOLN INH PRN; +CASIRIVIMAB/IMDEVIMAB 1,200 MG in NS 250 ML IV ONE; +EPINEPHrine INJ 1 MG/ML 1ML AMP IM PRN; +NS 1,000 ML IV SCH; +diphenhydrAMINE 50MG/ML VIAL (J1200) IV PRN; +methylPREDNISolone 125MG 2ML VIAL IV PRN
[2021-09-10] MEDS ORDERED: BAMLANIVIMAB 700 MG, ETESEVIMAB 1,400 MG in NS 250 ML IV ONE (08:05)
[2021-09-10 08:44] VITALS: BP 119/58
[2021-09-10 09:14] VITALS: BP 108/52
[2021-09-10 09:44] VITALS: BP 100/51
[2021-09-10 10:44] VITALS: BP 114/54
== END 2021-09-10 10:44 | disposition home or self-care (01) ==
LOC: M OPCLI4PR 07:41
PROVIDERS: ATTEND Family Medicine
DX: U07.1 COVID-19 (principal); Z91.048 Other nonmedicinal substance allergy status; Z88.8 Allergy status to other drugs, medicaments and biological substances

== ENCOUNTER → 2022-08-19 | Outpatient (CLI) | payer MEDICARE, OTHER ==
[~2022-08-19] MED LIST changes: -ALBUTEROL 90 MCG/ACT 8GM HFA INHALER INH PRN; -ALBUTEROL SULFATE 2.5 MG/0.5 ML INH NEB SOLN INH PRN; -CASIRIVIMAB/IMDEVIMAB 1,200 MG in NS 250 ML IV ONE; -EPINEPHrine INJ 1 MG/ML 1ML AMP IM PRN; +LOSA50TA28 PO; -LOSA50TA88 PO; -NS 1,000 ML IV SCH; -diphenhydrAMINE 50MG/ML VIAL (J1200) IV PRN; -methylPREDNISolone 125MG 2ML VIAL IV PRN
== END ==
LOC: M WHC 08:00
PROVIDERS: ATTEND Registered Nurse
DX: Z12.31 Encounter for screening mammogram for malignant neoplasm of breast (principal); Z95.0 Presence of cardiac pacemaker

== ENCOUNTER → 2023-04-28 | Outpatient (REF) | payer MEDICARE, OTHER | LOC: M LAB REF 11:24 | PROVIDERS: ATTEND Physician Assistant Medical | DX: N39.0 Urinary tract infection, site not specified (principal) ==

== ENCOUNTER 2023-10-11 16:39 | Emergency (ER) | payer MEDICARE, OTHER ==
[~2023-10-11] VITALS: Ht 162.6 cm; Wt 76.7 kg
[2023-10-11] MEDS ORDERED: ACET650T15 PO (16:47)
[2023-10-11] MEDS ORDERED: traMADol 50 MG TAB (HOME DOSE PACK) PO ONE (21:50)
[2023-10-11] MEDS ORDERED: traMADol 50 MG TAB PO ONE (22:00)
[2023-10-11] MEDS ORDERED: TRAM50TA2 PO (22:07)
[2023-10-11 22:14] VITALS: BP 118/74; TEMP 98.4; O2SAT 98
== END 2023-10-11 22:16 | disposition home or self-care (01) ==
LOC: M ED 16:39
DX: S62.306A Unspecified fracture of fifth metacarpal bone, right hand, initial encounter for closed fracture (principal); W18.30XA Fall on same level, unspecified, initial encounter; Y92.009 Unspecified place in unspecified non-institutional (private) residence as the place of occurrence of the external cause; Y93.9 Activity, unspecified; Z79.82 Long term (current) use of aspirin; Z79.899 Other long term (current) drug therapy

== ENCOUNTER 2023-10-13 16:24 | Observation (INO) | payer MEDICARE, OTHER ==
[~2023-10-13 16:24] MED LIST changes: +ACET650T15 PO; +TRAM50TA2 PO
[2023-10-13] MEDS ORDERED: ONDANSETRON 4MG 2ML VIAL IV PRN (19:05)
[2023-10-13] MEDS ORDERED: ACETAMINOPHEN TAB 650MG DOSE (2X325MG) PO PRN (19:05)
[2023-10-13] MEDS ORDERED: zolPIDEM TARTRATE 5 MG TAB PO PRN (19:05)
[2023-10-13] MEDS ORDERED: diphenhydrAMINE 50MG/ML VIAL IV PRN (19:05)
[2023-10-13] MEDS: oxyCODONE 5MG TAB PO PRN (20:07)
[2023-10-13 22:00] VITALS: BP 107/60; TEMP 99.5; O2SAT 97
[2023-10-13] MEDS: LR 1,000 ML IV SCH (23:04)
[2023-10-14] VITALS (7 sets, daily range): BP systolic 110–127; BP diastolic 59–69; TEMP 97.3–98.6; O2SAT 93–97
[2023-10-14] MEDS: IBUPROFEN 600MG TAB PO PRN (03:17)
[2023-10-14] MEDS: oxyCODONE 5MG TAB PO PRN ×3 (03:18→22:21)
[2023-10-14] MEDS: LR 1,000 ML IV SCH (10:50)
[2023-10-14] MEDS ORDERED: METOCLOPRAMIDE INJ 10MG/2ML VIAL As Ordered ONE (17:06)
[2023-10-14] MEDS ORDERED: propofoL 200 MG/20 ML VIAL As Ordered ONE (17:06)
[2023-10-14] MEDS ORDERED: ONDANSETRON 4MG 2ML VIAL As Ordered ONE (17:06)
[2023-10-14] MEDS ORDERED: LIDOCAINE 2% 100MG/5ML SDV (FOR ANES.) As Ordered ONE (17:06)
[2023-10-14] MEDS ORDERED: fentaNYL 100 MCG/2 ML INJECTION As Ordered ONE ×2 (17:06→17:21)
[2023-10-14] MEDS ORDERED: SUGAMMADEX SODIUM 500 MG/5 ML VIAL (BRIDION) As Ordered ONE (17:06)
[2023-10-14] MEDS ORDERED: MIDAZOLAM INJ 2MG/2ML VIAL As Ordered ONE (17:06)
[2023-10-14] MEDS ORDERED: ROCURONIUM BROMIDE 50MG/5ML VIAL As Ordered ONE (17:06)
[2023-10-14] MEDS ORDERED: dexmedeTOMIDine (4MCG/ML)200MCG/50ML BTL (PRECEDEX) As Ordered ONE (17:06)
[2023-10-14] MEDS ORDERED: ACETAMINOPHEN 1000MG 100ML IV BAG As Ordered ONE (17:09)
[2023-10-14] MEDS ORDERED: ceFAZolin 2 GM/D5W 50 ML IV BAG As Ordered ONE (17:11)
[2023-10-14] MEDS ORDERED: KETOROLAC 60MG 2ML VIAL As Ordered ONE (17:51)
[2023-10-14] MEDS ORDERED: BACITRACIN OINTMENT 30GM TUBE As Ordered ONE (18:00)
[2023-10-14] MEDS ORDERED: oxyCODONE 5MG TAB PO PRN (18:15)
[2023-10-14] MEDS ORDERED: ONDANSETRON 4MG 2ML VIAL IV PRN (18:15)
[2023-10-14] MEDS ORDERED: MEPERIDINE 25 MG/ML 1ML VIAL IV PRN (18:15)
[2023-10-14] MEDS: HYDROMORPHONE HCL 0.5 MG/ 0.5 ML SYRINGE IV PRN ×4 (18:52→19:33)
[2023-10-14] MEDS: fentaNYL 100 MCG/2 ML INJECTION IV PRN ×4 (19:04→19:20)
[2023-10-14] MEDS ORDERED: clonazePAM 0.5 MG TAB PO SCH (21:00)
[2023-10-14] MEDS ORDERED: AMITRIPTYLINE 50 MG TAB PO SCH (21:00)
[2023-10-14] MEDS ORDERED: CARV25TA PO (21:22)
[2023-10-14] MEDS ORDERED: ZOLO100T PO (21:22)
[2023-10-14] MEDS ORDERED: TRAM50TA2 PO (21:22)
[2023-10-14] MEDS ORDERED: VITACAP8 PO (21:22)
[2023-10-14] MEDS ORDERED: BUSP10TA PO (21:22)
[2023-10-14] MEDS ORDERED: FURO20TA2 PO (21:22)
[2023-10-14] MEDS ORDERED: BUPR-368 PO (21:22)
[2023-10-14] MEDS ORDERED: HOME MED LIST COMPLETE! XX SCH (21:35)
[2023-10-15] VITALS: BP 138/77; TEMP 98.7; O2SAT 97
[2023-10-15] MEDS: IBUPROFEN 600MG TAB PO PRN ×2 (00:48→10:13)
[2023-10-15 01:00] VITALS: BP 108/52; TEMP 98.4; O2SAT 97
[2023-10-15] MEDS: LR 1,000 ML IV SCH (02:03)
[2023-10-15] MEDS: oxyCODONE 5MG TAB PO PRN ×3 (02:06→11:50)
[2023-10-15 06:00] VITALS: BP 145/66; TEMP 97.7; O2SAT 98
[2023-10-15 07:42] VITALS: BP 150/70; TEMP 97.2; O2SAT 93
[2023-10-15] MEDS ORDERED: ENTRESTO 49-51MG TABLET (SACUBITRIL/VALSARTAN) PO SCH (09:00)
[2023-10-15] MEDS ORDERED: ASPIRIN 81MG ENTERIC TABLET PO SCH (09:00)
[2023-10-15] MEDS ORDERED: SERTRALINE 100 MG TAB PO SCH (09:00)
[2023-10-15] MEDS ORDERED: CYANOCOBALAMIN 500 MCG TAB PO SCH (09:00)
[2023-10-15] MEDS ORDERED: CARVedilol 12.5 MG TAB PO SCH (09:00)
[2023-10-15] MEDS ORDERED: busPIRone 10 MG TAB PO SCH (09:00)
[2023-10-15] MEDS ORDERED: FUROSEMIDE 20 MG TAB PO SCH (09:00)
[2023-10-15 09:17] VITALS: BP 150/70
[2023-10-15] MEDS ORDERED: OXYC-517 PO (09:35)
[2023-10-15 09:55] VITALS: BP 119/70; TEMP 97.1; O2SAT 98
[2023-10-15] MEDS ORDERED: cefTRIAXone SOD 1 GM in D5W MINI-BAG PLUS 50 ML IV ONE (10:00)
[2023-10-17] MEDS ORDERED: ASCORBIC ACID 500 MG TAB PO SCH (09:00)
== END 2023-10-15 13:55 | disposition home or self-care (01) ==
LOC: M MS5PR 17:18
PROVIDERS: ADMIT Orthopaedic Surgery Hand Surgery; ATTEND Orthopaedic Surgery Hand Surgery
DX: S62.326A Displaced fracture of shaft of fifth metacarpal bone, right hand, initial encounter for closed fracture (principal); X58.XXXA Exposure to other specified factors, initial encounter; Y92.89 Other specified places as the place of occurrence of the external cause; Y93.89 Activity, other specified; I10 Essential (primary) hypertension; M54.9 Dorsalgia, unspecified; E78.00 Pure hypercholesterolemia, unspecified; F32.A Depression, unspecified; Z95.0 Presence of cardiac pacemaker; Z98.84 Bariatric surgery status; Z88.8 Allergy status to other drugs, medicaments and biological substances; Z79.899 Other long term (current) drug therapy; Z79.82 Long term (current) use of aspirin
CPT/HCPCS: 26615; 76000; 96374; C1713; G0378; J0131; J0665; J0690; J0696; J1100; J1170; J1885; J2250; J2405; J2765; J3010

== ENCOUNTER → 2023-10-23 | Outpatient (CLI) | payer MEDICARE, OTHER ==
[~2023-10-23] MED LIST changes: +BUPR-368 PO; +BUSP10TA PO; +CARV25TA PO; +FURO20TA2 PO; +OXYC-517 PO; +OXYC1TAB23 PO; +VITACAP8 PO; +ZOLO100T PO
== END ==
LOC: M WHC 16:17
PROVIDERS: ATTEND Registered Nurse
DX: Z12.31 Encounter for screening mammogram for malignant neoplasm of breast (principal)

== ENCOUNTER → 2023-10-24 | Outpatient (CLI) | payer MEDICARE, OTHER | LOC: M SOG 08:13 | PROVIDERS: ATTEND Physician Assistant | DX: S62.326D Displaced fracture of shaft of fifth metacarpal bone, right hand, subsequent encounter for fracture with routine healing (principal) ==

== ENCOUNTER → 2023-10-24 | Outpatient (CLI) | payer MEDICARE, OTHER, SELFPAY ==
[~2023-10-24] MED LIST changes: +BUPR300T92 PO; +D32000TA PO; +DEXL60CA PO; +FAMO40TA3 PO; +TRAZ-252 PO
[2023-10-24 16:32] LABS: BASO # 0.1 10^3/uL (0.0-0.2); BASO % 1.7 % (0.0-1.0); EOS # 0.4 10^3/uL (0.0-0.5); EOS % 5.2 % (0.0-3.0); HEMATOCRIT 38.2 % (36.0-47.0); HEMOGLOBIN 11.1 g/dl (12.0-15.5); LYMPH # 1.5 10^3/uL (1.5-5.0); MEAN CORPUSCULAR HEMOGLOBIN 21.5 pg (27.0-33.0); MEAN CORPUSCULAR HGB CONC 29.1 g/dl (32.0-36.5); MEAN CORPUSCULAR VOLUME 73.9 fl (80.0-96.0); MONO # 0.6 10^3/uL (0.0-0.8); MONO % 8.6 % (2.0-8.0); NEUTROPHILS # 4.4 10^3/uL (1.5-8.5); NEUTROPHILS % 63.2 % (36.0-66.0); PLATELET COUNT, AUTOMATED 517 10^3/uL (150-450); RED BLOOD COUNT 5.17 10^6/uL (4.00-5.40); WHITE BLOOD COUNT 6.9 10^3/uL (4.0-10.0)
[2023-10-24 16:56] LABS: ALBUMIN 3.5 G/DL (3.2-5.2); BILIRUBIN,TOTAL 0.3 MG/DL (0.3-1.2); CALCIUM LEVEL 8.6 MG/DL (8.3-10.6); CREATININE FOR GFR 1.11 MG/DL (0.55-1.30); GLOMERULAR FILTRATION RATE 52.8 (>45); POTASSIUM SERUM 4.2 MMOL/L (3.5-5.1); TOTAL PROTEIN 6.2 G/DL (5.7-8.2)
== END ==
LOC: M WUC 12:30
PROVIDERS: ATTEND Podiatrist
DX: M92.62 Juvenile osteochondrosis of tarsus, left ankle (principal); M79.672 Pain in left foot; S62.326D Displaced fracture of shaft of fifth metacarpal bone, right hand, subsequent encounter for fracture with routine healing; Z95.0 Presence of cardiac pacemaker

== ENCOUNTER 2023-10-25 09:51 | Day surgery (SDC) | payer MEDICARE ==
[~2023-10-25] VITALS: Ht 162.6 cm; Wt 76.7 kg
[~2023-10-25 09:51] MED LIST changes: -BUPR300T92 PO; -D32000TA PO; -DEXL60CA PO; -FAMO40TA3 PO; -OXYC1TAB23 PO; -TRAZ-252 PO
[2023-10-25] MEDS ORDERED: propofoL 200 MG/20 ML VIAL As Ordered ONE (11:46)
[2023-10-25] MEDS ORDERED: ONDANSETRON 4MG 2ML VIAL As Ordered ONE (11:46)
[2023-10-25] MEDS ORDERED: ACETAMINOPHEN 1000MG 100ML IV BAG As Ordered ONE (11:46)
[2023-10-25] MEDS ORDERED: fentaNYL 100 MCG/2 ML INJECTION As Ordered ONE (11:46)
[2023-10-25] MEDS ORDERED: MIDAZOLAM INJ 2MG/2ML VIAL As Ordered ONE (11:46)
[2023-10-25] MEDS ORDERED: GLYCOPYRROLATE INJ 0.2 MG/ML 2 ML VIAL As Ordered ONE (11:46)
[2023-10-25] MEDS ORDERED: BACITRACIN OINTMENT 30GM TUBE As Ordered ONE (12:46)
[2023-10-25] MEDS ORDERED: LIDOCAINE 2% 100MG/5ML SDV (FOR ANES.) As Ordered ONE (13:13)
[2023-10-25] MEDS ORDERED: ceFAZolin 2 GM/D5W 50 ML IV BAG As Ordered ONE (13:28)
[2023-10-25] MEDS ORDERED: KETOROLAC 60MG 2ML VIAL As Ordered ONE (14:52)
[2023-10-25] MEDS ORDERED: LR 1,000 ML IV SCH (15:05)
[2023-10-25] MEDS ORDERED: fentaNYL 100 MCG/2 ML INJECTION IV PRN (15:05)
[2023-10-25] MEDS ORDERED: ONDANSETRON 4MG 2ML VIAL IV PRN (15:05)
[2023-10-25] MEDS ORDERED: OXYC1TAB23 PO (15:13)
[2023-10-25] MEDS: oxyCODONE 5MG TAB PO PRN ×2 (16:04→16:35)
[2023-10-25] MEDS: HYDROMORPHONE HCL 0.5 MG/ 0.5 ML SYRINGE IV PRN ×4 (16:05→16:33)
[2023-10-25 17:20] VITALS: BP 128/64; TEMP 98.2; O2SAT 96
[2023-10-27] MEDS ORDERED: ZOLO100T PO (11:58)
[2023-10-27] MEDS ORDERED: FAMO40TA3 PO (11:58)
[2023-10-27] MEDS ORDERED: DEXL60CA PO (11:58)
[2023-10-27] MEDS ORDERED: ATOR1TAB21 PO (11:58)
[2023-10-27] MEDS ORDERED: TRAZ-252 PO (11:58)
[2023-10-27] MEDS ORDERED: BUPR300T92 PO (11:58)
[2023-10-27] MEDS ORDERED: D32000TA PO (12:08)
== END 2023-10-25 17:32 | disposition home or self-care (01) ==
LOC: M SDC 09:51
PROVIDERS: ATTEND Orthopaedic Surgery Hand Surgery
DX: S62.326A Displaced fracture of shaft of fifth metacarpal bone, right hand, initial encounter for closed fracture (principal); X58.XXXA Exposure to other specified factors, initial encounter; Y92.89 Other specified places as the place of occurrence of the external cause; Y93.9 Activity, unspecified; E78.00 Pure hypercholesterolemia, unspecified; I10 Essential (primary) hypertension; K21.9 Gastro-esophageal reflux disease without esophagitis; Z79.899 Other long term (current) drug therapy; F41.9 Anxiety disorder, unspecified; F32.A Depression, unspecified; Z95.0 Presence of cardiac pacemaker; Z98.84 Bariatric surgery status; Z88.8 Allergy status to other drugs, medicaments and biological substances; Z79.82 Long term (current) use of aspirin
CPT/HCPCS: 26615; 76000; C1713; J0131; J0665; J0690; J1170; J1885; J2250; J2405; J3010

== ENCOUNTER → 2023-11-02 | Outpatient (CLI) | payer MEDICARE ==
[~2023-11-02] MED LIST changes: +BUPR300T92 PO; +D32000TA PO; +DEXL60CA PO; +FAMO40TA3 PO; +OXYC1TAB23 PO; +TRAZ-252 PO
== END ==
LOC: M SOG 08:05
PROVIDERS: ATTEND Physician Assistant
DX: S62.326A Displaced fracture of shaft of fifth metacarpal bone, right hand, initial encounter for closed fracture (principal); Y93.9 Activity, unspecified; Y92.9 Unspecified place or not applicable

== ENCOUNTER 2023-11-03 09:39 | Day surgery (SDC) | payer MEDICARE ==
[~2023-11-03] VITALS: Ht 162.6 cm; Wt 77.1 kg
[~2023-11-03 09:39] MED LIST changes: +GENTAMICIN SULF 80MG/2ML VIAL As Ordered ONE; +LIDOCAINE 2% MDV 20ML VIAL As Ordered ONE
[2023-11-03] MEDS ORDERED: ceFAZolin 2 GM/D5W 50 ML IV BAG As Ordered ONE (12:43)
[2023-11-03] MEDS ORDERED: dexmedeTOMIDine (4MCG/ML)200MCG/50ML BTL (PRECEDEX) As Ordered ONE (12:57)
[2023-11-03] MEDS ORDERED: propofoL 200 MG/20 ML VIAL As Ordered ONE ×2 (12:57→13:35)
[2023-11-03] MEDS ORDERED: MIDAZOLAM INJ 2MG/2ML VIAL As Ordered ONE (12:57)
[2023-11-03] MEDS ORDERED: LIDOCAINE 2% 100MG/5ML SDV (FOR ANES.) As Ordered ONE (12:57)
[2023-11-03] MEDS ORDERED: fentaNYL 100 MCG/2 ML INJECTION As Ordered ONE (12:57)
[2023-11-03] MEDS ORDERED: ACETAMINOPHEN 1000MG 100ML IV BAG As Ordered ONE (12:57)
[2023-11-03 15:40] VITALS: BP 123/59; TEMP 97.6; O2SAT 96
== END 2023-11-03 15:40 | disposition home or self-care (01) ==
LOC: M SDC 09:39
PROVIDERS: ATTEND Podiatrist
DX: M76.822 Posterior tibial tendinitis, left leg (principal); M79.672 Pain in left foot; M92.62 Juvenile osteochondrosis of tarsus, left ankle; I11.9 Hypertensive heart disease without heart failure; M10.9 Gout, unspecified; Z79.899 Other long term (current) drug therapy; Z95.1 Presence of aortocoronary bypass graft; Z95.810 Presence of automatic (implantable) cardiac defibrillator
CPT/HCPCS: 28238; 73630; 76000; 88300; C1713; J0131; J0665; J0690; J1580; J2250; J3010

== ENCOUNTER → 2023-11-27 | Outpatient (CLI) | payer MEDICARE ==
[~2023-11-27] MED LIST changes: -GENTAMICIN SULF 80MG/2ML VIAL As Ordered ONE; -LIDOCAINE 2% MDV 20ML VIAL As Ordered ONE
== END ==
LOC: M SOG 08:21
PROVIDERS: ATTEND Physician Assistant
DX: Z53.9 Procedure and treatment not carried out, unspecified reason (principal)

== ENCOUNTER → 2023-12-05 | Outpatient (CLI) | payer MEDICARE | LOC: M SOG 07:49 | PROVIDERS: ATTEND Physician Assistant | DX: S62.326A Displaced fracture of shaft of fifth metacarpal bone, right hand, initial encounter for closed fracture (principal); Y93.9 Activity, unspecified; Y92.9 Unspecified place or not applicable ==

== ENCOUNTER → 2024-01-19 | Outpatient (CLI) | payer MEDICARE | LOC: M SOG 07:58 | PROVIDERS: ATTEND Physician Assistant | DX: S62.326A Displaced fracture of shaft of fifth metacarpal bone, right hand, initial encounter for closed fracture (principal) ==

== ENCOUNTER 2024-01-25 06:26 | Day surgery (SDC) | payer MEDICARE ==
[~2024-01-25] VITALS: Ht 162.6 cm; Wt 75.1 kg
[~2024-01-25 06:26] MED LIST changes: +PHENYLEPHRINE 10% OPHTH SOL 5ML OD PRN
[2024-01-25] MEDS ORDERED: LR 1,000 ML IV SCH (06:45)
[2024-01-25] MEDS: OFLOXACIN 0.3 % (OCUFLOX) OPTH SOL 5ML OD ONE (06:58)
[2024-01-25] MEDS: PHENYLEPHRINE 2.5% OPHTH SOL 2ML OD SCH (06:59)
[2024-01-25] MEDS: TROPICAMIDE 1% OPHTH SOLN 15ML OD SCH (06:59)
[2024-01-25] MEDS: LIDOCAINE 3.5 % 1ML OPHTH TOPICAL GEL OU ONE (06:59)
[2024-01-25] MEDS: ATROPINE SULFATE 1% OPHTH SOLN 2ML BTL OD SCH (06:59)
[2024-01-25] MEDS ORDERED: MIDAZOLAM INJ 2MG/2ML VIAL As Ordered ONE (07:11)
[2024-01-25] MEDS ORDERED: fentaNYL 100 MCG/2 ML INJECTION As Ordered ONE (07:12)
[2024-01-25] MEDS ORDERED: BSS IRRIG/VANCO(10MG)/TOBRA(5MG)/EPINEPH(1:1000-0.5CC)500ML BAG-ORONLY As Ordered ONE (07:28)
[2024-01-25] MEDS: LIDOCAINE 1% SDV 5ML VIAL As Ordered ONE (08:05)
[2024-01-25] MEDS: CEFUROXIME 1MG/0.1ML INTRACAMERAL INJ As Ordered ONE (08:05)
[2024-01-25 08:15] VITALS: BP 121/58; TEMP 97.9; O2SAT 95
== END 2024-01-25 08:38 | disposition home or self-care (01) ==
LOC: M SDC 06:26
PROVIDERS: ATTEND Ophthalmology
DX: H25.11 Age-related nuclear cataract, right eye (principal)
CPT/HCPCS: 66984; J0697; J2250; J3010; V2632

== ENCOUNTER 2024-02-01 06:59 | Day surgery (SDC) | payer MEDICARE ==
[~2024-02-01] VITALS: Ht 162.6 cm; Wt 73.9 kg
[~2024-02-01 06:59] MED LIST changes: +ATROPINE SULFATE 1% OPHTH SOLN 2ML BTL OS SCH; +LIDOCAINE 3.5 % 1ML OPHTH TOPICAL GEL OU ONE; +OFLOXACIN 0.3 % (OCUFLOX) OPTH SOL 5ML OS ONE; -PHENYLEPHRINE 10% OPHTH SOL 5ML OD PRN; +PHENYLEPHRINE 10% OPHTH SOL 5ML OS PRN; +PHENYLEPHRINE 2.5% OPHTH SOL 2ML OS SCH; +TROPICAMIDE 1% OPHTH SOLN 15ML OS SCH
[2024-02-01] MEDS ORDERED: MIDAZOLAM INJ 2MG/2ML VIAL As Ordered ONE (07:15)
[2024-02-01] MEDS ORDERED: fentaNYL 100 MCG/2 ML INJECTION As Ordered ONE (07:15)
[2024-02-01] MEDS: LIDOCAINE 1% SDV 5ML VIAL As Ordered ONE (08:22)
[2024-02-01] MEDS: CEFUROXIME 1MG/0.1ML INTRACAMERAL INJ As Ordered ONE (08:22)
[2024-02-01] MEDS: BSS IRRIG/VANCO(10MG)/TOBRA(5MG)/EPINEPH(1:1000-0.5CC)500ML BAG-ORONLY As Ordered ONE (08:25)
[2024-02-01 08:30] VITALS: BP 94/54; TEMP 97.2; O2SAT 94
== END 2024-02-01 09:00 | disposition home or self-care (01) ==
LOC: M SDC 06:59
PROVIDERS: ATTEND Ophthalmology
DX: H25.12 Age-related nuclear cataract, left eye (principal); G47.30 Sleep apnea, unspecified; Z95.810 Presence of automatic (implantable) cardiac defibrillator; I10 Essential (primary) hypertension; Z88.8 Allergy status to other drugs, medicaments and biological substances; Z79.899 Other long term (current) drug therapy
CPT/HCPCS: 66984; J0697; J2250; J3010; V2632

== ENCOUNTER 2024-04-25 09:12 | Day surgery (SDC) | payer MEDICARE ==
[~2024-04-25] VITALS: Ht 162.6 cm; Wt 73.7 kg
[~2024-04-25 09:12] MED LIST changes: -ATROPINE SULFATE 1% OPHTH SOLN 2ML BTL OS SCH; +BUPR-597 PO; -BUPR300T92 PO; -LIDOCAINE 3.5 % 1ML OPHTH TOPICAL GEL OU ONE; -OFLOXACIN 0.3 % (OCUFLOX) OPTH SOL 5ML OS ONE; -PHENYLEPHRINE 10% OPHTH SOL 5ML OS PRN; -PHENYLEPHRINE 2.5% OPHTH SOL 2ML OS SCH; -TROPICAMIDE 1% OPHTH SOLN 15ML OS SCH
[2024-04-25] MEDS: NS 1,000 ML IV ONE (10:00)
[2024-04-25] MEDS ORDERED: propofoL 200 MG/20 ML VIAL As Ordered ONE (10:02)
[2024-04-25] MEDS ORDERED: GLYCOPYRROLATE INJ 0.2 MG/ML 2 ML VIAL As Ordered ONE (10:02)
[2024-04-25] MEDS ORDERED: fentaNYL 100 MCG/2 ML INJECTION As Ordered ONE (10:02)
[2024-04-25] MEDS ORDERED: LIDOCAINE 2% 100MG/5ML SDV (FOR ANES.) As Ordered ONE (10:02)
[2024-04-25 10:55] VITALS: TEMP 97
[2024-04-25 11:22] VITALS: BP 113/66; O2SAT 97
== END 2024-04-25 11:28 | disposition home or self-care (01) ==
LOC: M OPP 09:12
PROVIDERS: ATTEND Internal Medicine Gastroenterology
DX: R12 Heartburn (principal); Z98.0 Intestinal bypass and anastomosis status; R11.0 Nausea; Z95.5 Presence of coronary angioplasty implant and graft; Z79.02 Long term (current) use of antithrombotics/antiplatelets; Z79.1 Long term (current) use of non-steroidal anti-inflammatories (NSAID); Z79.82 Long term (current) use of aspirin; Z79.899 Other long term (current) drug therapy; Z88.1 Allergy status to other antibiotic agents

== ENCOUNTER → 2024-05-01 | Outpatient (CLI) | payer MEDICARE | LOC: M SOG 08:19 | PROVIDERS: ATTEND Physician Assistant | DX: M25.511 Pain in right shoulder (principal); M25.512 Pain in left shoulder ==

== ENCOUNTER → 2024-06-15 | Outpatient (CLI) | payer MEDICARE ==
[~2024-06-15] MED LIST changes: -DEXL60CA PO; +DEXL60CA13 PO
[2024-06-15 15:40] LABS: HEMATOCRIT 42.8 % (36.0-47.0); HEMOGLOBIN 13.2 g/dl (12.0-15.5); MEAN CORPUSCULAR HEMOGLOBIN 24.9 pg (27.0-33.0); MEAN CORPUSCULAR HGB CONC 30.8 g/dl (32.0-36.5); MEAN CORPUSCULAR VOLUME 80.8 fl (80.0-96.0); PLATELET COUNT, AUTOMATED 442 10^3/uL (150-450); WHITE BLOOD COUNT 7.7 10^3/uL (4.0-10.0)
[2024-06-15 16:07] LABS: ALBUMIN 3.6 G/DL (3.2-5.2); BILIRUBIN,TOTAL 0.3 MG/DL (0.3-1.2); CALCIUM LEVEL 8.8 MG/DL (8.3-10.6); CHOLESTEROL RISK RATIO 3.12 (<5); CREATININE FOR GFR 1.06 MG/DL (0.55-1.30); GLOMERULAR FILTRATION RATE 55.6 (>45); HDL CHOLESTEROL 51.9 MG/DL (>40); LDL CHOLESTEROL 88.5 MG/DL (<100); NON-HDL-C 110.1 MG/DL; PERCENT SATURATION 22.1 % (13.2-45.0); POTASSIUM SERUM 4.2 MMOL/L (3.5-5.1); TOTAL PROTEIN 5.9 G/DL (5.7-8.2)
[2024-06-15 16:09] LABS: FERRITIN 101.7 NG/ML (7.3-270.7); TOTAL 25(OH) VITAMIN D 38.3 NG/ML (20.0-100.0)
== END ==
LOC: M RAD 14:49
PROVIDERS: ATTEND Registered Nurse
DX: S32.020A Wedge compression fracture of second lumbar vertebra, initial encounter for closed fracture (principal); M51.34 Other intervertebral disc degeneration, thoracic region; M54.50 Low back pain, unspecified; R29.6 Repeated falls; E55.9 Vitamin D deficiency, unspecified; D50.9 Iron deficiency anemia, unspecified; I25.10 Atherosclerotic heart disease of native coronary artery without angina pectoris; Y93.9 Activity, unspecified; Y92.9 Unspecified place or not applicable; Z98.84 Bariatric surgery status

== ENCOUNTER → 2024-08-01 | Outpatient (CLI) | payer MEDICARE ==
[~2024-08-01] MED LIST changes: +ISOVUE-300 61% 100ML VIAL As Ordered ONE; +LIDOCAINE 1% MDV 20ML VIAL As Ordered ONE; +TRIAMCINOLONE ACETONIDE SUSP 40MG/ML 1ML VIAL As Ordered ONE
== END ==
LOC: M RAD 14:15
PROVIDERS: ATTEND Physician Assistant
DX: M25.511 Pain in right shoulder (principal)
CPT/HCPCS: 20610; 77002; J0665; J3301; Q9967

== ENCOUNTER → 2024-09-02 | Outpatient (CLI) | payer MEDICARE ==
[~2024-09-02] MED LIST changes: +HYDR-3713; -ISOVUE-300 61% 100ML VIAL As Ordered ONE; -LIDOCAINE 1% MDV 20ML VIAL As Ordered ONE; -TRIAMCINOLONE ACETONIDE SUSP 40MG/ML 1ML VIAL As Ordered ONE
[2024-09-02 08:53] LABS: BASO # 0.1 10^3/uL (0.0-0.2); BASO % 1.6 % (0.0-1.0); EOS # 0.2 10^3/uL (0.0-0.5); EOS % 4.2 % (0.0-3.0); HEMATOCRIT 44.2 % (36.0-47.0); HEMOGLOBIN 13.8 g/dl (12.0-15.5); LYMPH # 1.7 10^3/uL (1.5-5.0); LYMPH % 30.3 % (24.0-44.0); MEAN CORPUSCULAR HEMOGLOBIN 27.5 pg (27.0-33.0); MEAN CORPUSCULAR HGB CONC 31.2 g/dl (32.0-36.5); MEAN CORPUSCULAR VOLUME 88.2 fl (80.0-96.0); MONO # 0.5 10^3/uL (0.0-0.8); MONO % 8.1 % (2.0-8.0); NEUTROPHILS # 3.1 10^3/uL (1.5-8.5); NEUTROPHILS % 55.4 % (36.0-66.0); PLATELET COUNT, AUTOMATED 415 10^3/uL (150-450); RED BLOOD COUNT 5.01 10^6/uL (4.00-5.40); WHITE BLOOD COUNT 5.7 10^3/uL (4.0-10.0)
[2024-09-02 09:20] LABS: CALCIUM LEVEL 9.8 MG/DL (8.3-10.6); CREATININE FOR GFR 1.12 MG/DL (0.55-1.30); GLOMERULAR FILTRATION RATE 52.1 (>45); POTASSIUM SERUM 4.6 MMOL/L (3.5-5.1)
== END ==
LOC: M LAB 08:01
PROVIDERS: ATTEND Podiatrist
DX: M92.61 Juvenile osteochondrosis of tarsus, right ankle (principal); M79.671 Pain in right foot

== ENCOUNTER 2024-09-06 06:17 | Day surgery (SDC) | payer MEDICARE ==
[~2024-09-06] VITALS: Ht 162.6 cm; Wt 74.8 kg
[2024-09-06] MEDS ORDERED: LR 1,000 ML IV SCH (06:55)
[2024-09-06] MEDS ORDERED: LIDOCAINE 2% 100MG/5ML SDV (FOR ANES.) As Ordered ONE (07:02)
[2024-09-06] MEDS ORDERED: propofoL 200 MG/20 ML VIAL As Ordered ONE (07:02)
[2024-09-06] MEDS ORDERED: ROCURONIUM BROMIDE 50MG/5ML VIAL As Ordered ONE (07:02)
[2024-09-06] MEDS ORDERED: ONDANSETRON 4MG 2ML VIAL As Ordered ONE (07:02)
[2024-09-06] MEDS ORDERED: MIDAZOLAM INJ 2MG/2ML VIAL As Ordered ONE (07:02)
[2024-09-06] MEDS ORDERED: ACETAMINOPHEN 1000MG 100ML IV BAG As Ordered ONE (07:03)
[2024-09-06] MEDS ORDERED: dexmedeTOMIDine (4MCG/ML)200MCG/50ML BTL (PRECEDEX) As Ordered ONE (07:03)
[2024-09-06] MEDS ORDERED: fentaNYL 100 MCG/2 ML INJECTION As Ordered ONE (07:03)
[2024-09-06] MEDS: ceFAZolin 2 GM/D5W 50 ML IV BAG As Ordered ONE (07:42)
[2024-09-06] MEDS: LIDOCAINE 2% MDV 20ML VIAL As Ordered ONE (07:49)
[2024-09-06] MEDS: GENTAMICIN SULF 80MG/2ML VIAL As Ordered ONE (08:00)
[2024-09-06] MEDS ORDERED: ePHEDrine SULFATE 25 MG/5 ML(5MG/ML) SYRINGE As Ordered ONE (08:20)
[2024-09-06] MEDS ORDERED: PHENYLephrine 500MCG 5ML (100MCG/ML) SYRINGE As Ordered ONE (08:20)
[2024-09-06] MEDS ORDERED: KETOROLAC 60MG 2ML VIAL As Ordered ONE (08:57)
[2024-09-06 09:30] VITALS: BP 114/57; TEMP 98.6; O2SAT 98
== END 2024-09-06 10:20 | disposition home or self-care (01) ==
LOC: M SDC 06:17
PROVIDERS: ATTEND Podiatrist
DX: M76.821 Posterior tibial tendinitis, right leg (principal); Q66.89 Other specified congenital deformities of feet; I10 Essential (primary) hypertension; I42.9 Cardiomyopathy, unspecified; E78.00 Pure hypercholesterolemia, unspecified; Z79.899 Other long term (current) drug therapy; Z79.82 Long term (current) use of aspirin; Z95.810 Presence of automatic (implantable) cardiac defibrillator; Z88.8 Allergy status to other drugs, medicaments and biological substances; Z98.84 Bariatric surgery status; Z90.710 Acquired absence of both cervix and uterus
CPT/HCPCS: 28238; 73630; 88300; C1713; J0131; J0665; J0690; J1100; J1580; J1885; J2250; J2371; J2405

== ENCOUNTER → 2025-10-01 | Outpatient (CLI) | payer MEDICARE, MEDICAID ==
[~2025-10-01] MED LIST changes: +ACET-1515 PO; -ACET650T15 PO; -AMIT150T PO; +AMIT150T4 PO; -BUPR-597 PO; +BUPR-766 PO; -VITA500T17 PO; +VITA500T8 PO
[2025-10-01 18:38] LABS: BASO # 0.1 10^3/uL (0.0-0.2); BASO % 1.7 % (0.0-1.0); EOS # 0.3 10^3/uL (0.0-0.5); EOS % 4.8 % (0.0-3.0); LYMPH # 1.9 10^3/uL (1.5-5.0); LYMPH % 27.4 % (24.0-44.0); MONO # 0.5 10^3/uL (0.0-0.8); MONO % 6.7 % (2.0-8.0); NEUTROPHILS # 4.1 10^3/uL (1.5-8.5); NEUTROPHILS % 59.1 % (36.0-66.0); PLATELET COUNT, AUTOMATED 406 10^3/uL (150-450)
[2025-10-01 19:04] LABS: CALCIUM LEVEL 8.8 MG/DL (8.3-10.6); CARBON DIOXIDE LEVEL 26.0 MMOL/L (20-31); CHLORIDE LEVEL 106.0 MMOL/L (98-107); CREATININE FOR GFR 0.98 MG/DL (0.55-1.30); GLOMERULAR FILTRATION RATE 64.1 (>45); INR 0.97; POTASSIUM SERUM 4.3 MMOL/L (3.5-5.1); SODIUM LEVEL 142.0 MMOL/L (136-145)
== END ==
LOC: M RAD 16:45
PROVIDERS: ATTEND Registered Nurse
DX: Z01.818 Encounter for other preprocedural examination (principal)

== ENCOUNTER → 2025-10-05 | Outpatient (REF) | payer MEDICARE, MEDICAID ==
[2025-10-05 13:18] LABS: APPEARANCE, URINE CLEAR (CLEAR); BACTERIA, URINE AUTO 1+ (NEGATIVE); BILIRUBIN, URINE AUTO NEGATIVE (NEGATIVE); BLOOD, URINE BLOOD NEGATIVE (NEGATIVE); GLUCOSE, URINE (UA) AUTO NEGATIVE (NEGATIVE); KETONE, URINE AUTO NEGATIVE (NEGATIVE); LEUKOCYTE ESTERASE, URINE AUTO TRACE (NEGATIVE); MUCUS, URINE SMALL (NEGATIVE); NITRITE, URINE AUTO NEGATIVE (NEGATIVE); PROTEIN, URINE AUTO NEGATIVE (NEGATIVE); RBC, URINE AUTO 0 /HPF (0-3); SPECIFIC GRAVITY URINE AUTO 1.005 (1.002-1.035); SQUAMOUS EPITHELIAL CELL UR AU 0 /HPF (0-6); UROBILINOGEN, URINE AUTO 0.2 mg/dL (0.0-2.0); WBC, URINE AUTO 1 /HPF (0-3)
== END ==
LOC: M LAB REF 12:54
PROVIDERS: ATTEND Registered Nurse
DX: Z01.818 Encounter for other preprocedural examination (principal)

== ENCOUNTER 2025-10-27 15:48 | Emergency (ER) | payer MEDICARE, MEDICAID ==
[2025-10-27] MEDS: NS 500 ML IV ONE (16:50)
[2025-10-27 16:51] LABS: BASO # 0.0 10^3/uL (0.0-0.2); BASO % 0.3 % (0.0-1.0); EOS # 0.4 10^3/uL (0.0-0.5); EOS % 3.1 % (0.0-3.0); LYMPH # 1.5 10^3/uL (1.5-5.0); LYMPH % 12.7 % (24.0-44.0); MONO # 1.0 10^3/uL (0.0-0.8); MONO % 8.6 % (2.0-8.0); NEUTROPHILS # 8.6 10^3/uL (1.5-8.5); NEUTROPHILS % 74.7 % (36.0-66.0); PLATELET COUNT, AUTOMATED 324 10^3/uL (150-450)
[2025-10-27 17:10] LABS: CALCIUM LEVEL 7.5 MG/DL (8.3-10.6); CARBON DIOXIDE LEVEL 25 MMOL/L (20-31); CHLORIDE LEVEL 108 MMOL/L (98-107); CREATININE FOR GFR 1.37 MG/DL (0.55-1.30); GLOMERULAR FILTRATION RATE 42.9 (>45); POTASSIUM SERUM 4.2 MMOL/L (3.5-5.1); SODIUM LEVEL 143 MMOL/L (136-145)
[2025-10-27 17:35] LABS: INR 1.02
[2025-10-27 18:26] VITALS: TEMP 98.6
[2025-10-27 18:36] LABS: ALT/SGPT 26 U/L (7.0-40); AST/SGOT 23 U/L (<34); CK-MB VALUE MASS < 1.0 NG/ML (<3.6)
[2025-10-27 18:37] LABS: ETHYL ALCOHOL (ETHANOL) < 0.003 % (0.000-0.010)
[2025-10-27 18:38] LABS: CPK CREATINE PHOSPHOKINASE 26 U/L (34-145)
[2025-10-27 18:39] LABS: SALICYLATE LEVEL < 3.0 MG/DL (<30)
[2025-10-27 18:58] LABS: CK-MB VALUE MASS < 1.0 NG/ML (<3.6); MAGNESIUM LEVEL 2.1 MG/DL (1.8-2.4)
[2025-10-27 19:02] LABS: FREE T4 1.49 NG/DL (0.89-1.76)
[2025-10-27 19:03] LABS: CPK CREATINE PHOSPHOKINASE 29 U/L (34-145)
[2025-10-27] MEDS ORDERED: LIDOCAINE 2% 5 ML JELLY UROJET TOP ONE (19:10)
[2025-10-27] MEDS ORDERED: ISOVUE-370 76% 100 ML VIAL As Ordered ONE (19:14)
[2025-10-27 19:15] VITALS: BP 132/63; O2SAT 95
== END 2025-10-27 19:39 | disposition left against medical advice (07) ==
LOC: M ED 15:48
DX: R55 Syncope and collapse (principal); R94.31 Abnormal electrocardiogram [ECG] [EKG]; I10 Essential (primary) hypertension; K21.9 Gastro-esophageal reflux disease without esophagitis; F41.9 Anxiety disorder, unspecified; F32.A Depression, unspecified; Z88.8 Allergy status to other drugs, medicaments and biological substances; Z79.1 Long term (current) use of non-steroidal anti-inflammatories (NSAID); Z79.899 Other long term (current) drug therapy; Z53.9 Procedure and treatment not carried out, unspecified reason